=== PATIENT | male | born 1930 | race Caucasian/White ===

== ENCOUNTER → 2016-06-09 | Outpatient (CLI) | payer OTHER ==
[~2016-06-09] MED LIST: AMLO5TAB2 PO; NOR10T PO; TERA2CAP45 PO; TRAM50TA2 PO
== END | disposition home or self-care (01) ==
LOC: LAB 12:11
PROVIDERS: ATTEND Urology
DX: N40.1 Benign prostatic hyperplasia with lower urinary tract symptoms (principal); R35.1 Nocturia
CPT/HCPCS: 84153; 84154

== ENCOUNTER 2016-09-11 07:33 | Day surgery (SDC) | payer OTHER ==
[2016-09-07 15:53] LABS: Basophils # (auto) 0.1 uL; Basophils % (auto) 0.5 % (0.0-2.0); Eosinophils # (auto) 0.2 uL; Eosinophils % (auto) 2.4 % (0.0-7.0); Hematocrit 44.6 % (41.0-53.0); Hemoglobin 14.9 g/dL (13.5-17.5); Lymphocytes % (auto) 30.4 % (10.0-50.0); Mean Corpuscular Hemoglobin 27.5 pg (28.0-32.0); Mean Corpuscular Hgb Conc. 33.4 g/dL (32.0-36.0); Mean Corpuscular Volume 82.3 fL (80.0-100.0); Mean Platelet Volume 8.5 fL (7.4-10.4); Monocytes # (auto) 0.8 uL; Monocytes % (auto) 7.6 % (0.0-12.0); Neutrophils # (auto) 5.9 uL; Neutrophils % (auto) 59.1 % (37.0-80.0); Platelet Count (auto) 357 10^3/uL (140-450); Red Cell Distribution Width 14.2 % (11.6-16.0); White Blood Cell 9.9 10^3/uL (4.4-10.8)
[2016-09-07 16:09] LABS: Partial Thromboplastin Time 27.3 sec (22.64-33.71); Prothrombin Time 10.9 sec (9.37-12.3)
[2016-09-07 16:18] LABS: Urine Bilirubin Negative (Negative); Urine Blood Negative /uL (Negative); Urine Color Yellow (Yellow); Urine Glucose Normal (Normal); Urine Ketone Negative (Negative); Urine Nitrite Negative (Negative); Urine RBC 1 /hpf (0 - 3); Urine Urobilinogen Normal (Negative); Urine pH 5.5 (5.0-8.0)
[2016-09-07 16:24] LABS: Albumin 3.8 g/dL (3.4-5.0); BUN/Creatinine Ratio 17.6; Calcium 9.4 mg/dL (8.5-10.1); Potassium 5.2 mmol/L (3.5-5.1)
[2016-09-07 16:25] LABS: Bilirubin, Total 0.6 mg/dL (0.2-1.0); Total Protein 7.3 g/dL (6.4-8.2)
[~2016-09-11] VITALS: Ht 182.9 cm; Wt 82.6 kg
[~2016-09-11 07:33] MED LIST changes: -AMLO5TAB2 PO; -TERA2CAP45 PO; -TRAM50TA2 PO
[2016-09-11] MEDS ORDERED: ceFAZolin 1GM/50ML D5W 50 ML IV ONE (07:40)
[2016-09-11] MEDS ORDERED: SODIUM CHLORIDE LOCK 10 ML ONE (07:50)
[2016-09-11] MEDS ORDERED: PROPOFOL 10 MG/ML 20 ML IV ONE (07:50)
[2016-09-11] MEDS ORDERED: ONDANSETRON HCL 4 MG/2 ML VIAL ONE (07:50)
[2016-09-11] MEDS ORDERED: fentaNYL CITRATE 100 MCG/2 ML VL ONE (07:50)
[2016-09-11] MEDS ORDERED: MIDAZOLAM HCL 1MG/1ML-2 ML VIAL ONE (07:50)
[2016-09-11] MEDS ORDERED: HYDROmorphone HCL 2 MG/ML VL IV PRN (08:15)
[2016-09-11] MEDS ORDERED: METOCLOPRAMIDE HCL 5MG/ml INJ 2ml VIAL IV ONE (08:15)
[2016-09-11] MEDS ORDERED: LIDOCAINE 1% HCL (LOCAL ANESTH.) INJ 20ML MDV ONE (08:47)
[2016-09-11 10:02] VITALS: BP 130/77
== END 2016-09-11 10:02 | disposition home or self-care (01) ==
LOC: SUR 07:33
PROVIDERS: ATTEND Orthopaedic Surgery
DX: G56.02 Carpal tunnel syndrome, left upper limb (principal); M72.8 Other fibroblastic disorders; Z90.49 Acquired absence of other specified parts of digestive tract; N40.0 Benign prostatic hyperplasia without lower urinary tract symptoms; J44.9 Chronic obstructive pulmonary disease, unspecified; I12.9 Hypertensive chronic kidney disease with stage 1 through stage 4 chronic kidney disease, or unspecified chronic kidney disease; N18.4 Chronic kidney disease, stage 4 (severe)
CPT/HCPCS: 25020; 36415; 64721; 80053; 81001; 85025; 85610; 85730; J0690; J2001; J2250; J2405; J2704; J3010

== ENCOUNTER → 2016-10-27 | Outpatient (CLI) | payer OTHER ==
[2016-10-27 10:26] LABS: BUN/Creatinine Ratio 14.8; Calcium 9.7 mg/dL (8.5-10.1); Potassium 4.2 mmol/L (3.5-5.1)
== END | disposition home or self-care (01) ==
LOC: LAB 09:49
PROVIDERS: ATTEND Internal Medicine
DX: I10 Essential (primary) hypertension (principal); E71.2 Disorder of branched-chain amino-acid metabolism, unspecified
CPT/HCPCS: 36415; 80048; 80061

== ENCOUNTER 2017-05-12 21:16 | Emergency (ER) | payer OTHER ==
[~2017-05-12] VITALS: Ht 185.4 cm; Wt 81.6 kg
[2017-05-12 21:24] VITALS: BP 157/100
[2017-05-12 21:58] LABS: Basophils # (auto) 0 uL; Basophils % (auto) 0.2 % (0.0-2.0); Eosinophils # (auto) 0.2 uL; Eosinophils % (auto) 2.3 % (0.0-7.0); Hematocrit 44.6 % (41.0-53.0); Hemoglobin 15.1 g/dL (13.5-17.5); Lymphocytes # (auto) 3.4 uL; Mean Corpuscular Hemoglobin 28.2 pg (28.0-32.0); Mean Corpuscular Hgb Conc. 33.9 g/dL (32.0-36.0); Mean Corpuscular Volume 83.2 fL (80.0-100.0); Monocytes # (auto) 0.8 uL; Monocytes % (auto) 7.6 % (0.0-12.0); Neutrophils # (auto) 5.8 uL; Neutrophils % (auto) 56.9 % (37.0-80.0); Nucleated Red Blood Cells % 0.1 %; Platelet Count (auto) 324 10^3/uL (140-450); Red Blood Cells 5.35 10^6/uL (4.5-5.90); Red Cell Distribution Width 14.7 % (11.8-14.3); White Blood Cell 10.2 10^3/uL (4.4-10.8)
[2017-05-12 22:14] LABS: Alanine Aminotransferase 18 U/L (16-61); Albumin 3.9 g/dL (3.4-5.0); Anion Gap 10 (5-15); Aspartate Aminotransferase 13 U/L (15-37); BUN/Creatinine Ratio 15.6; Blood Urea Nitrogen 29 mg/dL (7-18); Calcium 9.9 mg/dL (8.5-10.1); Carbon Dioxide 25 mmol/L (21-32); Chloride 102 mmol/L (98-107); GFR African American 45 mL/min; GFR Non-African American 37 mL/min; Glucose 124 mg/dL (74-106); Magnesium 2.3 mg/dL (1.6-2.6); Potassium 4.6 mmol/L (3.5-5.1); Sodium 137 mmol/L (136-145)
[2017-05-12 22:19] LABS: Alkaline Phosphatase 63 U/L (45-117); Bilirubin, Total 0.4 mg/dL (0.2-1.0); Total Protein 7.3 g/dL (6.4-8.2)
== END 2017-05-13 02:58 | disposition left against medical advice (07) ==
LOC: ER 21:18
DX: R07.89 Other chest pain (principal); Z53.21 Procedure and treatment not carried out due to patient leaving prior to being seen by health care provider
CPT/HCPCS: 36415; 71045; 80053; 83735; 84443; 84484; 85025; 93005

== ENCOUNTER → 2017-06-07 | Outpatient (CLI) | payer OTHER ==
[~2017-06-07] VITALS: Ht 185.4 cm; Wt 82.6 kg
[~2017-06-07] MED LIST changes: +ADENOSINE 69 MG in GIVE UN-DILUTED 0 ML IV ONE
[2017-06-07 10:56] VITALS: BP 168/107
== END | disposition home or self-care (01) ==
LOC: XY 09:39
PROVIDERS: ATTEND Internal Medicine Cardiovascular Disease
DX: I20.8 Other forms of angina pectoris (principal); I12.9 Hypertensive chronic kidney disease with stage 1 through stage 4 chronic kidney disease, or unspecified chronic kidney disease; N18.4 Chronic kidney disease, stage 4 (severe); J44.9 Chronic obstructive pulmonary disease, unspecified
CPT/HCPCS: 78452; 93017; A9500; J0153

== ENCOUNTER → 2017-11-04 | Outpatient (CLI) | payer OTHER ==
[~2017-11-04] MED LIST changes: -ADENOSINE 69 MG in GIVE UN-DILUTED 0 ML IV ONE
[2017-11-04 08:08] LABS: Urine Bacteria None Seen /hpf (None Seen)
[2017-11-04 08:15] LABS: Basophils # (auto) 0.1 uL; Basophils % (auto) 0.8 % (0.0-2.0); Eosinophils # (auto) 0.2 uL; Eosinophils % (auto) 1.9 % (0.0-7.0); Hemoglobin 14.3 g/dL (13.5-17.5); Lymphocytes # (auto) 3.5 uL; Lymphocytes % (auto) 42.1 % (10.0-50.0); Mean Corpuscular Hemoglobin 27.9 pg (28.0-32.0); Mean Corpuscular Hgb Conc. 33.3 g/dL (32.0-36.0); Mean Corpuscular Volume 83.8 fL (80.0-100.0); Monocytes # (auto) 0.7 uL; Monocytes % (auto) 8.8 % (0.0-12.0); Neutrophils # (auto) 3.9 uL; Neutrophils % (auto) 46.4 % (37.0-80.0); Platelet Count (auto) 321 10^3/uL (140-450); Red Blood Cells 5.13 10^6/uL (4.5-5.90); Red Cell Distribution Width 13.7 % (11.8-14.3); White Blood Cell 8.3 10^3/uL (4.4-10.8)
[2017-11-04 08:45] LABS: Albumin 3.7 g/dL (3.4-5.0); Bilirubin, Total 0.5 mg/dL (0.2-1.0); Calcium 9.4 mg/dL (8.5-10.1); Potassium 3.8 mmol/L (3.5-5.1)
[2017-11-04 09:31] LABS: Urine Specific Gravity 1.012 (1.001-1.035)
[2017-11-04 09:32] LABS: Urine Blood Negative /uL (Negative)
[2017-11-04 09:33] LABS: Urine WBC 3 /hpf (0 - 3)
== END | disposition home or self-care (01) ==
LOC: LAB 07:19
DX: Z00.01 Encounter for general adult medical examination with abnormal findings (principal); E78.2 Mixed hyperlipidemia; I10 Essential (primary) hypertension
CPT/HCPCS: 36415; 80053; 80061; 81001; 85025

== ENCOUNTER → 2018-05-10 | Outpatient (CLI) | payer OTHER ==
[2018-05-10 18:08] LABS: Free T4 (Free Thyroxine) 1.22 ng/dL (0.89-1.76); T3 Total 0.89 ng/mL (0.60-1.81)
== END | disposition home or self-care (01) ==
LOC: LAB 15:57
PROVIDERS: ATTEND Physician Assistant
DX: R53.83 Other fatigue (principal)
CPT/HCPCS: 36415; 84439; 84443; 84480

== ENCOUNTER → 2019-01-11 | Outpatient (CLI) | payer OTHER ==
[~2019-01-11] MED LIST changes: +ASPI81CH43 PO; +B-CO-15 PO; +HYDR12.55 PO; +LACTCAP35 PO; +MET50T PO; +ROSU5TAB5 PO; +TICA90TA PO
[2019-01-11 11:04] LABS: Basophils # (auto) 0.1 uL; Eosinophils # (auto) 0.2 uL; Eosinophils % (auto) 2.8 % (0.0-7.0); Hematocrit 42.3 % (41.0-53.0); Hemoglobin 14.3 g/dL (13.5-17.5); Lymphocytes # (auto) 2.6 uL; Lymphocytes % (auto) 31.4 % (10.0-50.0); Mean Corpuscular Hemoglobin 28.1 pg (28.0-32.0); Mean Corpuscular Hgb Conc. 33.7 g/dL (32.0-36.0); Mean Corpuscular Volume 83.3 fL (80.0-100.0); Monocytes # (auto) 0.8 uL; Monocytes % (auto) 9.6 % (0.0-12.0); Neutrophils # (auto) 4.5 uL; Neutrophils % (auto) 55.2 % (37.0-80.0); Nucleated Red Blood Cells % 0.1 %; Platelet Count (auto) 275 10^3/uL (140-450); Red Blood Cells 5.08 10^6/uL (4.5-5.90); Red Cell Distribution Width 14.6 % (11.8-14.3); White Blood Cell 8.2 10^3/uL (4.4-10.8)
[2019-01-11 11:29] LABS: Albumin 3.7 g/dL (3.4-5.0); BUN/Creatinine Ratio 17.1; Calcium 9.5 mg/dL (8.5-10.1); Potassium 4.1 mmol/L (3.5-5.1)
[2019-01-11 11:32] LABS: Bilirubin, Total 0.6 mg/dL (0.2-1.0)
== END | disposition home or self-care (01) ==
LOC: LAB 10:45
PROVIDERS: ATTEND Internal Medicine
DX: I25.10 Atherosclerotic heart disease of native coronary artery without angina pectoris (principal); I12.9 Hypertensive chronic kidney disease with stage 1 through stage 4 chronic kidney disease, or unspecified chronic kidney disease; E11.22 Type 2 diabetes mellitus with diabetic chronic kidney disease; N18.3 Chronic kidney disease, stage 3 (moderate); I24.9 Acute ischemic heart disease, unspecified
CPT/HCPCS: 36415; 80053; 85025

== ENCOUNTER → 2019-02-15 | Outpatient (CLI) | payer OTHER | END | disposition home or self-care (01) | LOC: XYW 09:38 | PROVIDERS: ATTEND Internal Medicine | DX: I08.2 Rheumatic disorders of both aortic and tricuspid valves (principal); I25.10 Atherosclerotic heart disease of native coronary artery without angina pectoris | CPT/HCPCS: 93306 ==

== ENCOUNTER → 2019-03-07 | Outpatient (CLI) | payer OTHER ==
[2019-03-07 12:23] LABS: Basophils # (auto) 0.1 uL; Basophils % (auto) 1.2 % (0.0-2.0); Eosinophils # (auto) 0.2 uL; Eosinophils % (auto) 2.9 % (0.0-7.0); Hematocrit 42.3 % (41.0-53.0); Hemoglobin 14.2 g/dL (13.5-17.5); Lymphocytes # (auto) 1.7 uL; Lymphocytes % (auto) 24.2 % (10.0-50.0); Mean Corpuscular Hemoglobin 28.1 pg (28.0-32.0); Mean Corpuscular Hgb Conc. 33.6 g/dL (32.0-36.0); Mean Corpuscular Volume 83.7 fL (80.0-100.0); Monocytes # (auto) 0.7 uL; Monocytes % (auto) 9.9 % (0.0-12.0); Neutrophils # (auto) 4.5 uL; Neutrophils % (auto) 61.8 % (37.0-80.0); Platelet Count (auto) 258 10^3/uL (140-450); Red Blood Cells 5.06 10^6/uL (4.5-5.90); Red Cell Distribution Width 14.6 % (11.8-14.3); White Blood Cell 7.2 10^3/uL (4.4-10.8)
[2019-03-07 12:26] LABS: Albumin 3.7 g/dL (3.4-5.0); Calcium 9.1 mg/dL (8.5-10.1); Potassium 4.8 mmol/L (3.5-5.1)
[2019-03-07 12:31] LABS: BUN/Creatinine Ratio 17.3; Bilirubin, Total 0.6 mg/dL (0.2-1.0); Total Protein 7.1 g/dL (6.4-8.2)
== END | disposition home or self-care (01) ==
LOC: LAB 11:56
PROVIDERS: ATTEND Internal Medicine
DX: I25.10 Atherosclerotic heart disease of native coronary artery without angina pectoris (principal); I10 Essential (primary) hypertension; R06.02 Shortness of breath; G89.4 Chronic pain syndrome
CPT/HCPCS: 36415; 80053; 84443; 85025

== ENCOUNTER → 2019-05-18 | Outpatient (CLI) | payer OTHER ==
[~2019-05-18] VITALS: Ht 185.4 cm; Wt 70.3 kg
[~2019-05-18] MED LIST changes: +ADENOSINE 59 MG in GIVE UN-DILUTED 0 ML IV STA
== END | disposition home or self-care (01) ==
LOC: XY 07:53
PROVIDERS: ATTEND Internal Medicine
DX: I10 Essential (primary) hypertension (principal); E78.00 Pure hypercholesterolemia, unspecified; Z95.5 Presence of coronary angioplasty implant and graft
CPT/HCPCS: 78452; 93017; A9500; J0153

== ENCOUNTER 2019-06-14 11:55 | Inpatient (IN) | payer OTHER ==
[~2019-06-14] VITALS: Ht 182.9 cm; Wt 77.3 kg
[~2019-06-14 11:55] MED LIST changes: -ADENOSINE 59 MG in GIVE UN-DILUTED 0 ML IV STA
[2019-06-14 12:57] LABS: Basophils # (auto) 0.1 10 ^3/uL (0-0.2); Basophils % (auto) 0.7 % (0.0-2.0); Eosinophils # (auto) 0.2 10 ^3/uL (0-0.8); Eosinophils % (auto) 2.8 % (0.0-7.0); Hematocrit 41.8 % (41.0-53.0); Hemoglobin 13.9 g/dL (13.5-17.5); Lymphocytes # (auto) 1.9 10 ^3/uL (0.4-5.4); Lymphocytes % (auto) 23.2 % (10.0-50.0); Mean Corpuscular Hemoglobin 27.7 pg (28.0-32.0); Mean Corpuscular Hgb Conc. 33.3 g/dL (32.0-36.0); Mean Corpuscular Volume 83.1 fL (80.0-100.0); Monocytes # (auto) 0.8 10 ^3/uL (0-1.3); Monocytes % (auto) 9.4 % (0.0-12.0); Neutrophils # (auto) 5.2 10 ^3/uL (1.6-8.6); Neutrophils % (auto) 63.9 % (37.0-80.0); Platelet Count (auto) 250 10^3/uL (140-450); Red Blood Cells 5.03 10^6/uL (4.5-5.90); Red Cell Distribution Width 14.2 % (11.8-14.3); White Blood Cell 8.2 10^3/uL (4.4-10.8)
[2019-06-14 13:15] LABS: Albumin 3.8 g/dL (3.4-5.0); BUN/Creatinine Ratio 21.4; Calcium 9.4 mg/dL (8.5-10.1); Potassium 4.2 mmol/L (3.5-5.1)
[2019-06-14 13:17] LABS: Bilirubin, Total 0.5 mg/dL (0.2-1.0); Total Protein 6.9 g/dL (6.4-8.2)
[2019-06-14] MEDS ORDERED: MORPHINE SULF INJ 2 MG/ML SYRINGE 1ML IV ONE (14:00)
[2019-06-14] MEDS ORDERED: ONDANSETRON HCL 4 MG/2 ML VIAL IV ONE (14:00)
[2019-06-14 14:30] LABS: INR 1.01 (0.9-1.15); Partial Thromboplastin Time 27.5 sec (23.64-32.05)
[2019-06-14] MEDS ORDERED: MORPHINE SULF INJ 2 MG/ML SYRINGE 1ML IV PRN ×2 (18:45)
[2019-06-14] MEDS ORDERED: NITROGLYCERIN 0.4 MG SL TAB SL PRN (18:45)
[2019-06-14] MEDS ORDERED: CLOPIDOGREL BISULFATE 75 MG TAB PO ONE (18:45)
[2019-06-14] MEDS ORDERED: ONDANSETRON HCL 4 MG/2 ML VIAL IV PRN (18:45)
[2019-06-14] MEDS ORDERED: ACETAMINOPHEN 500 MG TAB PO PRN (18:45)
[2019-06-14] MEDS ORDERED: hydrALAZINE HCL 20 MG/ML VL IV PRN (18:45)
[2019-06-14] MEDS ORDERED: NITROGLYCERIN 0.4MG/HR TOPICAL PATCH TD ONE (18:45)
[2019-06-14 19:20] LABS: Urine Bacteria NONE SEEN /hpf (None Seen); Urine Blood Negative /uL (Negative); Urine Specific Gravity 1.009 (1.001-1.035); Urine WBC 1 /hpf (0 - 3)
[2019-06-14] MEDS: SODIUM CHLORIDE 0.9% 1,000 ML IV SCH (19:37)
[2019-06-14 20:50] VITALS: BP 107/60
[2019-06-14] MEDS: METOPROLOL TARTRATE 25 MG TAB PO SCH (21:29)
[2019-06-14] MEDS: ATORVASTATIN 20 MG TAB PO SCH (21:30)
[2019-06-14 22:00] VITALS: BP 107/60
[2019-06-14] MEDS ORDERED: METOPROLOL TARTRATE 50 MG TAB PO SCH (22:00)
[2019-06-14] MEDS ORDERED: CLOP75TA28 PO (23:25)
[2019-06-15] MEDS: HYDROcodone-ACET 5/325MG TAB PO PRN ×3 (04:34→21:37)
[2019-06-15 05:30] VITALS: BP 98/65
[2019-06-15 07:17] LABS: Potassium 4.6 mmol/L (3.5-5.1)
[2019-06-15 07:21] LABS: BUN/Creatinine Ratio 21.1; Calcium 9.1 mg/dL (8.5-10.1)
[2019-06-15] MEDS: FAMOTIDINE 20 MG TAB PO SCH (09:34)
[2019-06-15] MEDS: ASPirin 81 mg TAB PO SCH (09:36)
[2019-06-15] MEDS: METOPROLOL TARTRATE 25 MG TAB PO SCH ×2 (10:00→21:36)
[2019-06-15] MEDS: NITROGLYCERIN 0.4MG/HR TOPICAL PATCH TD SCH ×2 (10:00→14:43)
[2019-06-15] MEDS: CLOPIDOGREL BISULFATE 75 MG TAB PO SCH (10:00)
[2019-06-15] MEDS: SODIUM CHLORIDE 0.9% 1,000 ML IV SCH (11:25)
[2019-06-15 13:00] VITALS: BP 106/70
[2019-06-15] MEDS ORDERED: diphenhdrAMINE HCL 50 MG/1 ML VL IV ONE (13:15)
[2019-06-15 17:00] VITALS: BP 92/63
[2019-06-15] MEDS: DOCUSATE SOD 100 MG CAP PO SCH (21:36)
[2019-06-15] MEDS: ATORVASTATIN 20 MG TAB PO SCH (21:36)
[2019-06-15 21:38] VITALS: BP 95/56
[2019-06-16] VITALS (7 sets, daily range): BP systolic 93–152; BP diastolic 57–73
[2019-06-16] MEDS ORDERED: SODIUM CHLORIDE 0.9% 1,000 ML IV SCH (00:01)
[2019-06-16] MEDS: SODIUM CHLORIDE 0.9% 1,000 ML IV SCH ×3 (04:15→22:28)
[2019-06-16] MEDS: DOCUSATE SOD 100 MG CAP PO SCH ×2 (10:00→22:20)
[2019-06-16] MEDS: NITROGLYCERIN 0.4MG/HR TOPICAL PATCH TD SCH (10:00)
[2019-06-16] MEDS: METOPROLOL TARTRATE 25 MG TAB PO SCH ×2 (10:00→22:00)
[2019-06-16] MEDS: CLOPIDOGREL BISULFATE 75 MG TAB PO SCH (10:05)
[2019-06-16] MEDS: FAMOTIDINE 20 MG TAB PO SCH (10:05)
[2019-06-16] MEDS: ASPirin 81 mg TAB PO SCH (10:06)
[2019-06-16] MEDS ORDERED: LIDOCAINE 2%HCL (LOCAL ANESTH.) INJ 20ML MDV ONE (13:12)
[2019-06-16] MEDS ORDERED: IOHEXOL 350 MG/ML 100ML IJ ONE (13:12)
[2019-06-16] MEDS ORDERED: VERAPAMIL 2.5MG/ML INJ 2ML VIAL IV ONE (13:13)
[2019-06-16] MEDS ORDERED: HEPARIN SODIUM (PORCINE) 5000 UNITS/ML 1ML VIAL ONE (13:14)
[2019-06-16] MEDS ORDERED: fentaNYL CITRATE 100 MCG/2 ML VL ONE (13:19)
[2019-06-16] MEDS ORDERED: MIDAZOLAM HCL 1MG/1ML-2 ML VIAL ONE (13:19)
[2019-06-16] MEDS ORDERED: SODIUM CHL 0.9% 0 ML ONE (13:19)
[2019-06-16] MEDS ORDERED: ANGIOMAX 250 MG VIAL IV ONE (13:19)
[2019-06-16] MEDS ORDERED: IODIXANOL 320MG/ML 100ML BTL IV ONE (13:28)
[2019-06-16] MEDS: HYDROcodone-ACET 5/325MG TAB PO PRN (20:54)
[2019-06-16] MEDS: ATORVASTATIN 20 MG TAB PO SCH (22:20)
[2019-06-17] MEDS: HYDROcodone-ACET 5/325MG TAB PO PRN ×2 (04:36→14:15)
[2019-06-17 05:40] VITALS: BP 140/76
[2019-06-17 07:16] LABS: Basophils # (auto) 0 10 ^3/uL (0-0.2); Basophils % (auto) 0.5 % (0.0-2.0); Eosinophils # (auto) 0.2 10 ^3/uL (0-0.8); Eosinophils % (auto) 2.3 % (0.0-7.0); Hemoglobin 13.7 g/dL (13.5-17.5); Lymphocytes # (auto) 2.2 10 ^3/uL (0.4-5.4); Lymphocytes % (auto) 22.6 % (10.0-50.0); Mean Corpuscular Hemoglobin 27.9 pg (28.0-32.0); Mean Corpuscular Hgb Conc. 33.4 g/dL (32.0-36.0); Mean Corpuscular Volume 83.4 fL (80.0-100.0); Monocytes # (auto) 0.8 10 ^3/uL (0-1.3); Neutrophils # (auto) 6.4 10 ^3/uL (1.6-8.6); Neutrophils % (auto) 66.6 % (37.0-80.0); Platelet Count (auto) 238 10^3/uL (140-450); Red Blood Cells 4.92 10^6/uL (4.5-5.90); Red Cell Distribution Width 14.2 % (11.8-14.3); White Blood Cell 9.5 10^3/uL (4.4-10.8)
[2019-06-17 07:33] LABS: Calcium 9.3 mg/dL (8.5-10.1); Potassium 4.7 mmol/L (3.5-5.1)
[2019-06-17 07:35] LABS: BUN/Creatinine Ratio 24.7
[2019-06-17 08:00] VITALS: BP 126/77
[2019-06-17 09:00] VITALS: BP 126/17
[2019-06-17] MEDS: DOCUSATE SOD 100 MG CAP PO SCH (09:21)
[2019-06-17] MEDS: METOPROLOL TARTRATE 25 MG TAB PO SCH (09:22)
[2019-06-17] MEDS: FAMOTIDINE 20 MG TAB PO SCH (09:22)
[2019-06-17] MEDS: ASPirin 81 mg TAB PO SCH (09:22)
[2019-06-17] MEDS: CLOPIDOGREL BISULFATE 75 MG TAB PO SCH (09:22)
[2019-06-17] MEDS: NITROGLYCERIN 0.4MG/HR TOPICAL PATCH TD SCH (10:00)
[2019-06-17 12:58] VITALS: BP 138/83
[2019-06-17] MEDS: SODIUM CHLORIDE 0.9% 1,000 ML IV SCH (14:16)
[2019-06-17] MEDS ORDERED: ATOR20TA50 PO (15:06)
[2019-06-17] MEDS ORDERED: LACTULOSE 20Gm/30ML SOLN PO ONE (15:30)
[2019-06-17 15:36] VITALS: BP 138/83
== END 2019-06-17 17:10 | disposition home or self-care (01) | DRG 287 ==
LOC: ER 11:55 → TELE 11:56 → TELE-EAST 20:49
PROVIDERS: ADMIT Nurse Practitioner Acute Care; ATTEND Internal Medicine Nephrology
PROC: 4A023N7 Measurement of Cardiac Sampling and Pressure, Left Heart, Percutaneous Approach (ICD-10-PCS; principal; 2019-06-16)
PROC: B2151ZZ Fluoroscopy of Left Heart using Low Osmolar Contrast (ICD-10-PCS; 2019-06-16)
PROC: B2161ZZ Fluoroscopy of Right and Left Heart using Low Osmolar Contrast (ICD-10-PCS; 2019-06-16)
DX: I25.110 Atherosclerotic heart disease of native coronary artery with unstable angina pectoris (principal); E87.1 Hypo-osmolality and hyponatremia; N18.3 Chronic kidney disease, stage 3 (moderate); I25.10 Atherosclerotic heart disease of native coronary artery without angina pectoris; E78.5 Hyperlipidemia, unspecified; I12.9 Hypertensive chronic kidney disease with stage 1 through stage 4 chronic kidney disease, or unspecified chronic kidney disease; G89.4 Chronic pain syndrome; I25.2 Old myocardial infarction; Z95.1 Presence of aortocoronary bypass graft; Z90.49 Acquired absence of other specified parts of digestive tract; Z79.82 Long term (current) use of aspirin; Z95.5 Presence of coronary angioplasty implant and graft; Z79.899 Other long term (current) drug therapy
CPT/HCPCS: 36415; 71045; 80048; 80053; 81001; 83735; 83880; 84443; 84484; 85025; 85610; 85730; 86141; 86850; 86900; 86901; 87081; 93005; 93458; 96361; 96374; 96375; 99152; G0378; J2250; J2405; Q9967

== ENCOUNTER 2019-10-01 07:10 | Inpatient (IN) | payer OTHER ==
[~2019-10-01] VITALS: Ht 172.7 cm; Wt 78.2 kg
[~2019-10-01 07:10] MED LIST changes: +ATOR20TA50 PO; +CLOP75TA28 PO; -ROSU5TAB5 PO; -TICA90TA PO
[2019-10-01] MEDS ORDERED: PROMETHAZINE HCL 25 MG/ML 1ML ONE (08:32)
[2019-10-01] MEDS ORDERED: SODIUM CHLORIDE 0.9% 1,000 ML IV ONE ×2 (08:54→09:00)
[2019-10-01] MEDS ORDERED: SODIUM CHLORIDE 0.9% 500 ML IVB ONE (08:54)
[2019-10-01 08:55] LABS: Basophils # (auto) 0 10 ^3/uL (0-0.2); Basophils % (auto) 0.3 % (0.0-2.0); Eosinophils # (auto) 0 10 ^3/uL (0-0.8); Eosinophils % (auto) 0.2 % (0.0-7.0); Hematocrit 40.6 % (41.0-53.0); Hemoglobin 13.5 g/dL (13.5-17.5); Lymphocytes # (auto) 1.3 10 ^3/uL (0.4-5.4); Mean Corpuscular Hemoglobin 27.8 pg (28.0-32.0); Mean Corpuscular Hgb Conc. 33.3 g/dL (32.0-36.0); Mean Corpuscular Volume 83.6 fL (80.0-100.0); Monocytes # (auto) 0.5 10 ^3/uL (0-1.3); Monocytes % (auto) 5.2 % (0.0-12.0); Neutrophils # (auto) 8.4 10 ^3/uL (1.6-8.6); Neutrophils % (auto) 81.3 % (37.0-80.0); Platelet Count (auto) 251 10^3/uL (140-450); Red Blood Cells 4.86 10^6/uL (4.5-5.90); Red Cell Distribution Width 14.3 % (11.8-14.3); White Blood Cell 10.3 10^3/uL (4.4-10.8)
[2019-10-01] MEDS ORDERED: PROMETHAZINE HCL 25 MG/ML 1ML IV ONE ×2 (09:00→10:15)
[2019-10-01 09:17] LABS: Anion Gap 10 (5-15); Blood Urea Nitrogen 37 mg/dL (7-18); Calcium 9.8 mg/dL (8.5-10.1); Carbon Dioxide 23 mmol/L (21-32); Chloride 105 mmol/L (98-107); Glucose 138 mg/dL (74-106); Potassium 3.6 mmol/L (3.5-5.1); Sodium 138 mmol/L (136-145)
[2019-10-01 09:21] LABS: Alanine Aminotransferase 24 U/L (16-61); Alkaline Phosphatase 67 U/L (45-117); Aspartate Aminotransferase 19 U/L (15-37); BUN/Creatinine Ratio 23.1; Bilirubin, Total 0.6 mg/dL (0.2-1.0); GFR African American 53 mL/min; GFR Non-African American 44 mL/min; Total Protein 6.9 g/dL (6.4-8.2)
[2019-10-01 09:35] LABS: Magnesium 2.5 mg/dL (1.6-2.6)
[2019-10-01 10:07] LABS: Urine Bacteria FEW /hpf (None Seen); Urine Blood 2+ /uL (Negative); Urine Specific Gravity 1.013 (1.001-1.035); Urine WBC 5 /hpf (0 - 3)
[2019-10-01] MEDS ORDERED: MORPHINE SULFATE 4 MG/ML SYR/VIAL IV ONE (10:15)
[2019-10-01] MEDS ORDERED: LACTULOSE 20Gm/30ML SOLN PO ONE (12:15)
[2019-10-01] MEDS ORDERED: metroNIDAZOLE 500MG/100ML 100 ML IV ONE (12:15)
[2019-10-01] MEDS ORDERED: cefTRIAXone 1GM/50ML D5W 50 ML IV ONE (12:15)
[2019-10-01] MEDS ORDERED: NITROGLYCERIN 0.4 MG SL TAB SL PRN (13:00)
[2019-10-01] MEDS ORDERED: MORPHINE SULF INJ 2 MG/ML SYRINGE 1ML IV PRN (13:00)
[2019-10-01] MEDS ORDERED: DEXTROSE (50%) 50ML SYRG IV PRN (13:15)
[2019-10-01] MEDS ORDERED: LORazepam 2MG/ML-1ML VIAL IV ONE (13:15)
[2019-10-01] MEDS ORDERED: PANTOPRAZOLE 40 MG/10 ML VIAL INJ IV ONE (13:15)
[2019-10-01] MEDS ORDERED: traMADol HCL 50 MG TAB PO PRN (13:15)
[2019-10-01] MEDS: SODIUM CHLORIDE 0.9% 1,000 ML IV SCH ×2 (13:15→22:35)
[2019-10-01] MEDS ORDERED: ACETAMINOPHEN 500 MG TAB PO PRN (13:15)
[2019-10-01] MEDS: metroNIDAZOLE 500MG/100ML 100 ML IV SCH ×2 (14:00→22:34)
[2019-10-01] MEDS ORDERED: ENOXAPARIN SOD 40 MG/0.4 ML SYRINGE SC ONE (16:30)
[2019-10-01] MEDS: ACCU-CHEK COMFORT CURVE STRIP VI SCH ×2 (16:49→22:00)
[2019-10-01] MEDS: InsuLIN REG 1unit/0.01ml Soln (100units/ml) SC SCH ×2 (16:49→22:00)
--- NOTE | 2019-10-01 17:00 | NUR ---
Telemetry admit from ER SALTY GARCIA admitted to Telemetry unit after SBAR received. Patient oriented to Rashel Kiser, primary RN, unit, room, bed, and unit policies regarding patient care and visiting hours. Patient now on continuous telemetry monitoring, tele box # 24 and telemetry reading on arrival to unit is Sinus rhythm. Patient weighed by bedscale and bed alarm in place. Patient currently disoriented. Not responding verbally to questioning.
[2019-10-01] MEDS ORDERED: LORazepam 2MG/ML-1ML VIAL IV PRN (17:15)
--- NOTE | 2019-10-01 18:48 | NUR ---
ADMISSION INTERVENTIONS UNABLE TO COMPLETE ADMISSION INTERVENTIONS AT THIS TIME. PATIENT NOT ABLE TO ANSWER QUESTIONS AT THIS TIME. WILL NOTIFY PRIMARY NURSE.
--- NOTE | 2019-10-01 19:15 | NUR ---
Opening Shift Note Assumed care of patient, awake and alert. No S/S of distress/SOB or pain. Patient noted to be attempting pull out Guy catheter, patient altered at this time. Bilateral mittens applied for patient safety. Bed in lowest locked position, side rails up x2, call light within reach, bed alarm on. Charge nurse Silvina made aware of need for sitter for patient. Instructed on POC and to call for assist PRN, will continue to monitor every fifteen minutes for changes and PRN.
--- NOTE | 2019-10-01 19:45 | NUR ---
car wash attendant Abimael at bedside for patient safety. Will continue to monitor.
[2019-10-01 20:06] LABS: Hematocrit 40.6 % (41.0-53.0); Hemoglobin 13.2 g/dL (13.5-17.5)
[2019-10-01 22:00] VITALS: BP 155/68
--- NOTE | 2019-10-01 22:15 | NUR ---
Patient alert and oriented x 3 during medication administration. Patient knows his name, the current president, and that he's in the hospital, but not why he is here. Patient educated on reason for admittance, verbalized understanding. Episodes of confusion noted while speaking to patient, reoriented patient PRN. Will continue to monitor.
--- NOTE | 2019-10-01 22:30 | NUR ---
Patient reporting 7/10 pain to groin area, refusing pain medications and alternative pain relief options at this time. Will continue to monitor.
--- NOTE | 2019-10-01 23:55 | NUR ---
Patient transferred to room 293 B to combine safety attendants. Patient transferred with all belongings, tolerated transfer well. Bedside report given to Tasha BRADEN, all questions and concerns addressed. auto self service station attendant Jane at bedside for patient safety. No distress noted at time of transfer
--- NOTE | 2019-10-01 23:57 | NUR ---
Assumed care of patient. Received report from Coleen BRADEN. At this time patient has no s/s of distress or SOB. Patient resting in bed and responsive to voice and touch. Sitter at bedside. Will continue to monitor Q1 and PRN.
[2019-10-02 01:10] LABS: Hematocrit 39.1 % (41.0-53.0); Hemoglobin 12.8 g/dL (13.5-17.5)
[2019-10-02] MEDS: MORPHINE SULF INJ 2 MG/ML SYRINGE 1ML IV PRN ×2 (01:15→05:45)
[2019-10-02 04:36] VITALS: BP 102/51
[2019-10-02] MEDS: metroNIDAZOLE 500MG/100ML 100 ML IV SCH ×3 (05:44→21:49)
[2019-10-02] MEDS: InsuLIN REG 1unit/0.01ml Soln (100units/ml) SC SCH ×4 (06:39→21:49)
[2019-10-02] MEDS: ACCU-CHEK COMFORT CURVE STRIP VI SCH ×4 (06:49→21:49)
--- NOTE | 2019-10-02 07:10 | NUR ---
End of Shift Note Endorsed care to dayshift RN. At this time patient has no s/s of distress or SOB. Patient responsive to name and touch.
--- NOTE | 2019-10-02 07:17 | NUR ---
OPENING SHIFT NOTE Assumed care of patient from maintenance technician 2nd shift RN. There is a sitter at bedside. Patient is alert and oriented x3, patient is unaware of the year, patient was oriented to the year. No signs of distress noted. He was updated on the plan of care and verbalized understanding. Patient has a rivera placed draining bloody urine to gravity, no kinks or loops noted in the tubing. Per sitter patient was pulling at the rivera during the night. Rivera care complete, patient tolerated well. Bed is locked, in the lowest position, side rails up x2 and call light is in reach. Patient was encouraged to call for assistance as needed.
[2019-10-02 07:53] LABS: Basophils # (auto) 0 10 ^3/uL (0-0.2); Basophils % (auto) 0.2 % (0.0-2.0); Eosinophils # (auto) 0.1 10 ^3/uL (0-0.8); Eosinophils % (auto) 0.5 % (0.0-7.0); Hematocrit 37.2 % (41.0-53.0); Hemoglobin 12.2 g/dL (13.5-17.5); Lymphocytes # (auto) 2.1 10 ^3/uL (0.4-5.4); Lymphocytes % (auto) 18.7 % (10.0-50.0); Mean Corpuscular Hemoglobin 27.5 pg (28.0-32.0); Mean Corpuscular Hgb Conc. 32.9 g/dL (32.0-36.0); Mean Corpuscular Volume 83.7 fL (80.0-100.0); Monocytes # (auto) 1.1 10 ^3/uL (0-1.3); Neutrophils # (auto) 7.9 10 ^3/uL (1.6-8.6); Neutrophils % (auto) 70.6 % (37.0-80.0); Platelet Count (auto) 244 10^3/uL (140-450); Red Blood Cells 4.45 10^6/uL (4.5-5.90); Red Cell Distribution Width 14.5 % (11.8-14.3); White Blood Cell 11.2 10^3/uL (4.4-10.8)
[2019-10-02 08:08] LABS: Albumin 3.3 g/dL (3.4-5.0); Calcium 9.3 mg/dL (8.5-10.1); Potassium 3.6 mmol/L (3.5-5.1)
[2019-10-02 08:12] LABS: BUN/Creatinine Ratio 18.8; Bilirubin, Total 0.7 mg/dL (0.2-1.0)
[2019-10-02] MEDS: SODIUM CHLORIDE 0.9% 1,000 ML IV SCH ×2 (09:15→19:15)
[2019-10-02] MEDS: PANTOPRAZOLE 40 MG TAB PO SCH (09:20)
[2019-10-02] MEDS: cefTRIAXone 1GM/50ML D5W 50 ML IV SCH (09:20)
--- NOTE | 2019-10-02 09:45 | NUR ---
CALL FROM FAMILY Patient's daughter Theodora called. After verification of password she was updated on patient status and plan of care. All questions answered.
--- NOTE | 2019-10-02 11:17 | NUR ---
TRACEY AT BEDSIDE Updated on patient status, plan of care discussed with patient and he verbalized understanding. Per MD he will call family to discuss plan of care and possible hospice.
--- NOTE | 2019-10-02 13:22 | NUR ---
CALL FROM FAMILY Patient's daughter Theodora called. After verification of password she was updated on patient status and plan of care. Informed her that MD would be calling her to discuss the plan of care, results of any tests and plan of care, She verbalized understanding. All questions answered.
[2019-10-02 14:00] VITALS: BP 134/71
[2019-10-02 17:00] VITALS: BP 145/72
[2019-10-02] MEDS ORDERED: ENOXAPARIN SOD 40 MG/0.4 ML SYRINGE SC SCH (17:00)
--- NOTE | 2019-10-02 19:14 | NUR ---
Opening Shift Note Assumed care of patient, awake, alert and oriented (self, location, situation), on room air with even and unlabored respirations, no S/S of distress/SOB or pain. Sitter at bedside, patient able to turn in bed independently, bed in lowest locked position, side rails up x2, and call light within reach. Instructed on POC and to call for assist PRN, will continue to monitor for changes Q1hr and PRN.
[2019-10-02 22:00] VITALS: BP 135/86
[2019-10-03] MEDS: MORPHINE SULF INJ 2 MG/ML SYRINGE 1ML IV PRN ×2 (02:46→19:30)
[2019-10-03 05:00] VITALS: BP 116/63
[2019-10-03] MEDS: SODIUM CHLORIDE 0.9% 1,000 ML IV SCH ×2 (05:01→15:15)
[2019-10-03] MEDS: ACCU-CHEK COMFORT CURVE STRIP VI SCH ×4 (06:18→22:00)
[2019-10-03] MEDS: InsuLIN REG 1unit/0.01ml Soln (100units/ml) SC SCH ×4 (06:18→22:00)
[2019-10-03] MEDS: metroNIDAZOLE 500MG/100ML 100 ML IV SCH ×3 (06:18→22:02)
[2019-10-03] MEDS ORDERED: LORazepam 2MG/ML-1ML VIAL IV PRN (08:45)
--- NOTE | 2019-10-03 09:06 | NUR ---
at bedside MD Ribera at bedside, aware of patient's status. New orders received for CPAP and R.T paged to bedside. Cont care
[2019-10-03 09:08] VITALS: BP 134/80
[2019-10-03] MEDS: cefTRIAXone 1GM/50ML D5W 50 ML IV SCH (09:55)
[2019-10-03] MEDS: PANTOPRAZOLE 40 MG TAB PO SCH (09:55)
[2019-10-03] MEDS ORDERED: LACTULOSE 20Gm/30ML SOLN PO PRN (10:00)
[2019-10-03 11:18] LABS: Folate (Folic Acid) 16.6 ng/mL (5.38-24)
[2019-10-03 13:00] VITALS: BP 129/90
--- NOTE | 2019-10-03 13:04 | NUR ---
This rn was called to bedside for "pt found sitting on floor". Upon arrival this rn found patient sitting on floor with back against the bed. Patient states he "slid down from the be" and "couldn't catch himself". Patient denies hitting his head, denies acute pain, no bleeding noted. VSS bp 143/56 hr 79 os 96% on 2 l n/c, temp 98.6. Physical therapists paged to bedside and patient placed back in bed with assistance of Aline lift. Dr Ribera paged to notify. Will cont to monitor Addendum: 10/03/19 at 1944 by Brielle Duong RN DISREGARD NOTEWRONG PATIENT
--- NOTE | 2019-10-03 14:10 | NUR ---
Patient had large bowel movement. Per Sitter at bedside green in color and soft. Patient states "there were some chunks as well" Patient refusing Enema as he states "there's no issue anymore". Abd non tender to palpation, denies abd pain, denies n/v. Cont care
--- NOTE | 2019-10-03 14:57 | NUR ---
Nutrition Assessment Notes Please refer to link for full assessment notes. Est Energy needs: 2642-5117 kcals (23-25 kcal/kgBW) Est Protein needs: 49-61 gms/day (0.6-0.75 gm/kgBW) d/t Stg 3 CKD Will continue to monitor and reassess prn. Addendum: 10/03/19 at [address] Amended: Links added.
[2019-10-03 17:00] VITALS: BP 128/87
--- NOTE | 2019-10-03 19:14 | NUR ---
Opening Shift Note Assumed care of patient, awake, alert and oriented x4, on room air with even and unlabored respirations, no S/S of distress/SOB or pain. Patient able to turn in bed independently, bed in lowest locked position, side rails up x2, and call light within reach. Instructed on POC and to call for assist PRN, will continue to monitor for changes Q1hr and PRN.
[2019-10-03 22:00] VITALS: BP 126/75
[2019-10-03] MEDS: LORazepam 2MG/ML-1ML VIAL IV PRN (22:03)
[2019-10-03] MEDS ORDERED: TEMAZEPAM 15 MG CAP PO ONE (23:00)
[2019-10-04] MEDS: SODIUM CHLORIDE 0.9% 1,000 ML IV SCH ×3 (01:15→21:15)
[2019-10-04 05:00] VITALS: BP 104/61
[2019-10-04] MEDS: metroNIDAZOLE 500MG/100ML 100 ML IV SCH ×3 (06:10→21:30)
[2019-10-04] MEDS: ACCU-CHEK COMFORT CURVE STRIP VI SCH (07:00)
[2019-10-04] MEDS: InsuLIN REG 1unit/0.01ml Soln (100units/ml) SC SCH (07:00)
[2019-10-04 08:00] VITALS: BP 119/64
[2019-10-04 10:00] VITALS: BP 100/67
[2019-10-04] MEDS: PANTOPRAZOLE 40 MG TAB PO SCH (10:05)
[2019-10-04] MEDS: cefTRIAXone 1GM/50ML D5W 50 ML IV SCH (10:05)
--- NOTE | 2019-10-04 11:03 | NUR ---
Patient's family updated on POC, Spoke to Theodora dill's granddaughter. Cont care
--- NOTE | 2019-10-04 13:56 | NUR ---
assessment Patient is a 89 year old male who is alert and oriented. Patients cognitive abilities are intact. Prior to admission patient lived home with family and functioned independently. Patient informed me he is able to care for his own ADLs. Per patient he will return home to his prior living arrangements post discharge and family will transport him home. Patient informed me he has a scooter and fww for home use. Patient informed me he was admitted for abdominal pain. Patient informed me Scarlet Gastelum is his PCP. Patient has no safety issues regarding returning home on discharge. Patient has no post discharge needs identified. I will continue to monitor and follow up as appropriate. I informed patient he has a right to speak to a social media job titles regarding all care. I informed patient he has a right to participate in any and all discharge planning. Patient has a POA and advanced directive. Patient verbalized understanding and agreed to discharge plan. Addendum: 10/04/19 at 1358 by Nanette NGUYEN Amended: Links added.
--- NOTE | 2019-10-04 14:30 | NUR ---
ELECTROENCEPHALOGRAM EEG COMPLETED AT BEDSIDE. PRIMARY RN RAMON DALTON.
--- NOTE | 2019-10-04 16:46 | NUR ---
Urology at bedside Liv Peña with Urology at bedside aware of patient's status including hematuria. Awaiting new orders at this time. Cont care
--- NOTE | 2019-10-04 19:00 | NUR ---
Patient care endorsed to Terrie aranda. Patient sitting up in bed no acute distress or sob noted. Fall precs in place per protocol including bed alarm on at all times.
[2019-10-04] MEDS: ONDANSETRON HCL 4 MG/2 ML VIAL IV PRN (21:29)
--- NOTE | 2019-10-04 21:33 | NUR ---
NAUSEA AND VOMITING PATIENT SITTING UP AT BEDSIDE WITH ACTIVE NAUSEA AND VOMITING. ZOFRAN PRN GIVEN ORDERED. PATIENT STATES HE FINISHED HIS ENTIRE LIQUID DINNER AND TOLERATED WELL AT THE TIME. PATIENT DENIES ABDOMINAL PAIN. PATIENT REPORTS MOD AMOUNT OF EMESIS WITH LIQUID AND FOOD PARTICLES.
[2019-10-04 22:00] VITALS: BP 145/77
[2019-10-04] MEDS: MORPHINE SULF INJ 2 MG/ML SYRINGE 1ML IV PRN (23:41)
[2019-10-05] MEDS: SODIUM CHLORIDE 0.9% 1,000 ML IV SCH ×2 (02:59→18:09)
[2019-10-05 05:00] VITALS: BP 128/72
[2019-10-05] MEDS: metroNIDAZOLE 500MG/100ML 100 ML IV SCH ×3 (05:59→22:38)
[2019-10-05 06:26] LABS: Basophils # (auto) 0 10 ^3/uL (0-0.2); Basophils % (auto) 0.4 % (0.0-2.0); Eosinophils # (auto) 0.1 10 ^3/uL (0-0.8); Eosinophils % (auto) 1.2 % (0.0-7.0); Hematocrit 35.6 % (41.0-53.0); Hemoglobin 12.2 g/dL (13.5-17.5); Lymphocytes # (auto) 1.7 10 ^3/uL (0.4-5.4); Lymphocytes % (auto) 15.3 % (10.0-50.0); Mean Corpuscular Hemoglobin 28.4 pg (28.0-32.0); Mean Corpuscular Hgb Conc. 34.2 g/dL (32.0-36.0); Monocytes # (auto) 0.9 10 ^3/uL (0-1.3); Neutrophils # (auto) 8.1 10 ^3/uL (1.6-8.6); Neutrophils % (auto) 75.1 % (37.0-80.0); Nucleated Red Blood Cells % 0.1 %; Platelet Count (auto) 235 10^3/uL (140-450); Red Blood Cells 4.29 10^6/uL (4.5-5.90); Red Cell Distribution Width 14.4 % (11.8-14.3); White Blood Cell 10.8 10^3/uL (4.4-10.8)
[2019-10-05 06:41] LABS: Potassium 4.2 mmol/L (3.5-5.1)
[2019-10-05 06:47] LABS: BUN/Creatinine Ratio 11.8; Calcium 8.5 mg/dL (8.5-10.1)
--- NOTE | 2019-10-05 08:00 | NUR ---
OPENING SHIFT NOTE ASSUMED CARE OF PATIENT AWAKE AND ALERT. NO S/S OF DISTRESS NOTED OR COMPLAINTS OF PAIN. PATIENT UPDATED ON POC FOR THE DAY AND ALL QUESTIONS ANSWERED. BED IS IN LOWEST, LOCKED POSITION WITH SIDE RAILS UP X2 AND CALL LIGHT WITHIN REACH. WILL CONTINUE TO MONITOR Q1H AND PRN.
[2019-10-05 09:00] VITALS: BP 125/82
--- NOTE | 2019-10-05 09:30 | NUR ---
NAUSEA PATIENT IS HAVING SEVERE NAUSEA AFTER EATING BREAKFAST. ZOFRAN PRN ADMINISTERED. WILL CONTINUE TO MONITOR AND NOTIFY MD.
[2019-10-05] MEDS: cefTRIAXone 1GM/50ML D5W 50 ML IV SCH (09:43)
[2019-10-05] MEDS: PANTOPRAZOLE 40 MG TAB PO SCH ×2 (09:44→22:38)
[2019-10-05] MEDS: ONDANSETRON HCL 4 MG/2 ML VIAL IV PRN ×3 (09:44→22:39)
--- NOTE | 2019-10-05 09:45 | NUR ---
Attempted PT treatment. Pt complains of severe nausea and would like to hold PT treatment. RN notified. Will attempt again later.
--- NOTE | 2019-10-05 10:42 | NUR ---
DR WEBB AT BEDSIDE DR WEBB ROUNDING ON PATIENT. NEW ORDERS RECEIVED. WILL CARRY OUT AND CONTINUE CARE.
[2019-10-05] MEDS ORDERED: METOCLOPRAMIDE 10 mg/10ml ORAL soln PO SCH (12:00)
[2019-10-05 13:00] VITALS: BP 124/54
[2019-10-05 16:57] VITALS: BP 125/82
[2019-10-05] MEDS: SUCRALFATE 1 GM/10 ML ORAL SUSP PO SCH ×2 (18:08→22:38)
[2019-10-05 22:00] VITALS: BP 137/81
--- NOTE | 2019-10-05 22:00 | NUR ---
PATIENT STARTED TO FEEL NAUSEA AND STARTED TO VOMIT RIGHT AFTER I STARTED HIS ANTIBIOTICS. TREATED WITH PRN MEDICATION.
[2019-10-05] MEDS: RANOLAZINE ER 500 MG TAB PO SCH (22:39)
[2019-10-06] MEDS: LORazepam 2MG/ML-1ML VIAL IV PRN (00:22)
--- NOTE | 2019-10-06 02:44 | NUR ---
Opening Shift Note Assumed care of patient, awake, alert and oriented x4, on room air with even and unlabored respirations, no S/S of distress/SOB or pain. Patient able to turn in bed independently, bed in lowest locked position, side rails up x2, and call light within reach. Instructed on POC and to call for assist PRN, will continue to monitor.
[2019-10-06] MEDS: SODIUM CHLORIDE 0.9% 1,000 ML IV SCH ×2 (04:07→13:15)
--- NOTE | 2019-10-06 04:09 | NUR ---
PATIENT AWAKE REQUESTED EYE DROPS. PATIENT TC/O HAVING AN INFECTION ON HIS LEFT EYE.
[2019-10-06 05:00] VITALS: BP 126/75
[2019-10-06] MEDS: metroNIDAZOLE 500MG/100ML 100 ML IV SCH ×2 (05:39→14:14)
[2019-10-06] MEDS: SUCRALFATE 1 GM/10 ML ORAL SUSP PO SCH ×2 (05:39→12:21)
[2019-10-06 09:00] VITALS: BP 125/74
[2019-10-06] MEDS: cefTRIAXone 1GM/50ML D5W 50 ML IV SCH (09:00)
[2019-10-06] MEDS: PANTOPRAZOLE 40 MG TAB PO SCH (09:56)
[2019-10-06] MEDS: RANOLAZINE ER 500 MG TAB PO SCH (09:57)
[2019-10-06] MEDS: ONDANSETRON HCL 4 MG/2 ML VIAL IV PRN (09:57)
[2019-10-06] MEDS ORDERED: PANTOPRAZOLE 40 MG/10 ML VIAL INJ IV SCH (10:00)
[2019-10-06 13:00] VITALS: BP 144/82
[2019-10-06 13:35] VITALS: BP 144/82
--- NOTE | 2019-10-06 15:25 | NUR ---
Discharge instructions given as ordered. Encourage to follow up with PMD as instructed/instructions also given to Theodora (granddaughter). All questions and concerns addressed. Patient verbalized understanding. Medication reconciliation form completed and copy given to patient. IV removed with catheter intact, pressure dressing applied, rivera catheter removed. Telemetry unit returned to ICU. Patient taken to vehicle via wheelchair with all personal belongings, accompanied by staff. No distress noted at time of departure.
== END 2019-10-06 15:15 | disposition home or self-care (01) | DRG 391 ==
LOC: ER 07:10 → TELE 07:11 → TELE-CENTR 17:00 → TELE-WESTW 23:47
PROVIDERS: ADMIT Internal Medicine; ATTEND Internal Medicine
DX: K57.92 Diverticulitis of intestine, part unspecified, without perforation or abscess without bleeding (principal); G93.41 Metabolic encephalopathy; N30.01 Acute cystitis with hematuria; F02.81 Dementia in other diseases classified elsewhere, unspecified severity, with behavioral disturbance; K52.9 Noninfective gastroenteritis and colitis, unspecified; R33.9 Retention of urine, unspecified; N18.3 Chronic kidney disease, stage 3 (moderate); K59.01 Slow transit constipation; N28.89 Other specified disorders of kidney and ureter; N20.0 Calculus of kidney; E11.22 Type 2 diabetes mellitus with diabetic chronic kidney disease; N40.1 Benign prostatic hyperplasia with lower urinary tract symptoms; N28.1 Cyst of kidney, acquired; I25.10 Atherosclerotic heart disease of native coronary artery without angina pectoris; K76.89 Other specified diseases of liver; I12.9 Hypertensive chronic kidney disease with stage 1 through stage 4 chronic kidney disease, or unspecified chronic kidney disease; E78.5 Hyperlipidemia, unspecified; R07.89 Other chest pain; E11.21 Type 2 diabetes mellitus with diabetic nephropathy; H81.09 Meniere's disease, unspecified ear; K44.9 Diaphragmatic hernia without obstruction or gangrene; G30.9 Alzheimer's disease, unspecified; I25.2 Old myocardial infarction; Z95.5 Presence of coronary angioplasty implant and graft; Z90.49 Acquired absence of other specified parts of digestive tract; Z83.3 Family history of diabetes mellitus; Z82.49 Family history of ischemic heart disease and other diseases of the circulatory system; Z80.8 Family history of malignant neoplasm of other organs or systems; Z80.42 Family history of malignant neoplasm of prostate; Z79.82 Long term (current) use of aspirin; Z79.899 Other long term (current) drug therapy
CPT/HCPCS: 36415; 51702; 70450; 71045; 74176; 76775; 80048; 80053; 81001; 82378; 82550; 82607; 82746; 82962; 83036; 83690; 83735; 84154; 84443; 84484; 85014; 85018; 85025; 85652; 87040; 87045; 87086; 87427; 87493; 93005; 93886; 95819; 96361; 96365; 96375; C9113; G0378; J0696; J2405; J3490

== ENCOUNTER → 2019-10-09 | Emergency (ER) | payer OTHER ==
[~2019-10-09] VITALS: Ht 185.4 cm; Wt 72.6 kg
[~2019-10-09] MED LIST changes: +ONDANSETRON ODT 4 MG TAB PO ONE
[2019-10-09 18:39] VITALS: BP 132/83
== END | disposition home or self-care (01) ==
LOC: ER 18:00
DX: M79.662 Pain in left lower leg (principal); T50.905A Adverse effect of unspecified drugs, medicaments and biological substances, initial encounter; I25.10 Atherosclerotic heart disease of native coronary artery without angina pectoris; E78.5 Hyperlipidemia, unspecified; I10 Essential (primary) hypertension; I25.2 Old myocardial infarction; Y92.89 Other specified places as the place of occurrence of the external cause
CPT/HCPCS: 93971; 99284; Q0162

== ENCOUNTER 2019-10-15 10:39 | Emergency (ER) | payer OTHER ==
[~2019-10-15] VITALS: Ht 185.4 cm; Wt 72.6 kg
[~2019-10-15 10:39] MED LIST changes: -ONDANSETRON ODT 4 MG TAB PO ONE
[2019-10-15 11:01] VITALS: BP 126/62
[2019-10-15] MEDS ORDERED: SODIUM CHLORIDE 0.9% 1,000 ML IV ONE (11:10)
[2019-10-15] MEDS ORDERED: TETANUS-DIPTH-ACEL PERTUSSIS 0.5ML SYR Tdap IM ONE (11:15)
[2019-10-15 12:31] LABS: Basophils # (auto) 0 10 ^3/uL (0-0.2); Basophils % (auto) 0.5 % (0.0-2.0); Eosinophils # (auto) 0.1 10 ^3/uL (0-0.8); Eosinophils % (auto) 0.5 % (0.0-7.0); Hematocrit 42.2 % (41.0-53.0); Hemoglobin 13.9 g/dL (13.5-17.5); Lymphocytes # (auto) 1.6 10 ^3/uL (0.4-5.4); Lymphocytes % (auto) 16.6 % (10.0-50.0); Mean Corpuscular Hemoglobin 27.4 pg (28.0-32.0); Mean Corpuscular Hgb Conc. 32.8 g/dL (32.0-36.0); Mean Corpuscular Volume 83.4 fL (80.0-100.0); Monocytes # (auto) 0.8 10 ^3/uL (0-1.3); Neutrophils # (auto) 7.3 10 ^3/uL (1.6-8.6); Neutrophils % (auto) 74.4 % (37.0-80.0); Nucleated Red Blood Cells % 0.1 %; Platelet Count (auto) 355 10^3/uL (140-450); Red Blood Cells 5.07 10^6/uL (4.5-5.90); Red Cell Distribution Width 14.4 % (11.8-14.3); White Blood Cell 9.8 10^3/uL (4.4-10.8)
[2019-10-15 12:46] LABS: Albumin 3.6 g/dL (3.4-5.0); Anion Gap 8 (5-15); Blood Urea Nitrogen 22 mg/dL (7-18); Calcium 9.9 mg/dL (8.5-10.1); Carbon Dioxide 25 mmol/L (21-32); Chloride 106 mmol/L (98-107); Glucose 107 mg/dL (74-106); Potassium 3.9 mmol/L (3.5-5.1); Sodium 139 mmol/L (136-145)
[2019-10-15 12:52] LABS: Alanine Aminotransferase 33 U/L (16-61); Alkaline Phosphatase 60 U/L (45-117); Aspartate Aminotransferase 24 U/L (15-37); BUN/Creatinine Ratio 14.4; Bilirubin, Total 0.7 mg/dL (0.2-1.0); GFR African American 56 mL/min; GFR Non-African American 46 mL/min; Total Protein 6.9 g/dL (6.4-8.2)
[2019-10-15 14:52] LABS: Urine Bacteria NONE SEEN /hpf (None Seen); Urine Blood Negative /uL (Negative); Urine Specific Gravity 1.009 (1.001-1.035); Urine WBC <1 /hpf (0 - 3)
[2019-10-15 15:14] LABS: Alcohol, Urine < 3.0 mg/dL (0-10); Amphetamine Screen, Urine NEGATIVE (NEGATIVE); Barbiturate Scree,Urine NEGATIVE (NEGATIVE); Benzodiazephine Screen, Urine NEGATIVE (NEGATIVE); Cannabinoid Screen, Urine NEGATIVE (NEGATIVE); Cocaine Screen, Urine NEGATIVE (NEGATIVE); Opiate Scree,Urine NEGATIVE (NEGATIVE); Phencyclidine Screen, Urine NEGATIVE (NEGATIVE)
== END 2019-10-15 19:14 | disposition home or self-care (01) ==
LOC: ER 10:39
DX: S00.01XA Abrasion of scalp, initial encounter (principal); R55 Syncope and collapse; G30.0 Alzheimer's disease with early onset; F02.80 Dementia in other diseases classified elsewhere, unspecified severity, without behavioral disturbance, psychotic disturbance, mood disturbance, and anxiety; I12.9 Hypertensive chronic kidney disease with stage 1 through stage 4 chronic kidney disease, or unspecified chronic kidney disease; N18.3 Chronic kidney disease, stage 3 (moderate); E78.5 Hyperlipidemia, unspecified; I25.2 Old myocardial infarction; Z90.49 Acquired absence of other specified parts of digestive tract; Z79.82 Long term (current) use of aspirin; Z79.899 Other long term (current) drug therapy; W19.XXXA Unspecified fall, initial encounter; Y93.89 Activity, other specified; Y92.091 Bathroom in other non-institutional residence as the place of occurrence of the external cause; Y99.8 Other external cause status
CPT/HCPCS: 36415; 70450; 71045; 80053; 80307; 81001; 83735; 84443; 84484; 85025; 90471; 90715; 93005

== ENCOUNTER 2020-08-20 03:40 | Inpatient (IN) | payer OTHER ==
[~2020-08-20] VITALS: Ht 182.9 cm; Wt 83.3 kg
[2020-08-20 04:26] LABS: Basophils # (auto) 0 10 ^3/uL (0-0.2); Basophils % (auto) 0.6 % (0.0-2.0); Eosinophils # (auto) 0.1 10 ^3/uL (0-0.8); Eosinophils % (auto) 1.5 % (0.0-7.0); Hematocrit 38.8 % (41.0-53.0); Hemoglobin 13.2 g/dL (13.5-17.5); Lymphocytes # (auto) 2.8 10 ^3/uL (0.4-5.4); Lymphocytes % (auto) 33.4 % (10.0-50.0); Mean Corpuscular Hemoglobin 27.9 pg (28.0-32.0); Mean Corpuscular Hgb Conc. 34.1 g/dL (32.0-36.0); Monocytes # (auto) 0.7 10 ^3/uL (0-1.3); Monocytes % (auto) 8.1 % (0.0-12.0); Neutrophils # (auto) 4.7 10 ^3/uL (1.6-8.6); Neutrophils % (auto) 56.4 % (37.0-80.0); Nucleated Red Blood Cells % 0.1 %; Platelet Count (auto) 285 10^3/uL (140-450); Red Blood Cells 4.73 10^6/uL (4.5-5.90); White Blood Cell 8.4 10^3/uL (4.4-10.8)
[2020-08-20 04:41] LABS: Albumin 3.5 g/dL (3.4-5.0); Calcium 8.9 mg/dL (8.5-10.1); Magnesium 2.6 mg/dL (1.6-2.6); Potassium 4.4 mmol/L (3.5-5.1)
[2020-08-20 04:44] LABS: BUN/Creatinine Ratio 22.4; Bilirubin, Total 0.3 mg/dL (0.2-1.0); Total Protein 6.4 g/dL (6.4-8.2)
[2020-08-20] MEDS ORDERED: ONDANSETRON HCL 4 MG/2 ML VIAL IV ONE (04:45)
[2020-08-20] MEDS ORDERED: HYDROmorphone HCL 2 MG/ML VL IV ONE ×2 (04:45→06:00)
[2020-08-20 04:50] LABS: INR 0.99 (0.9-1.15); Partial Thromboplastin Time 22.4 sec (23.0-31.2)
[2020-08-20 05:25] LABS: Urine Bacteria NONE SEEN /hpf (None Seen); Urine Blood Negative /uL (Negative); Urine Specific Gravity 1.011 (1.001-1.035); Urine WBC <1 /hpf (0 - 3)
[2020-08-20] MEDS ORDERED: ACETAMINOPHEN 500 MG TAB PO ONE (06:00)
[2020-08-20] MEDS ORDERED: SODIUM CHLORIDE 0.9% 500 ML IV ONE (06:00)
[2020-08-20] MEDS: SODIUM CHLORIDE 0.9% 1,000 ML IV SCH ×2 (06:45→09:35)
[2020-08-20] MEDS: MORPHINE SULFATE 4 MG/ML SYR/VIAL IV PRN ×3 (09:34→17:53)
[2020-08-20] MEDS: ONDANSETRON HCL 4 MG/2 ML VIAL IV PRN ×2 (09:35→13:46)
[2020-08-20] MEDS ORDERED: PANTOPRAZOLE 40 MG/10 ML VIAL INJ IV SCH (10:00)
[2020-08-20] MEDS ORDERED: DOCUSATE SOD 100 MG CAP PO PRN (13:45)
[2020-08-20] MEDS ORDERED: HYDROcodone-ACET 5/325MG TAB PO PRN (15:15)
[2020-08-20 17:00] VITALS: BP 150/72
[2020-08-20] MEDS: CALCIUM W/VIT D (600MG/400IU) TAB PO SCH (17:53)
[2020-08-20] MEDS: METOPROLOL TARTRATE 25 MG TAB PO SCH (20:54)
[2020-08-20] MEDS: HYDROcodone-ACET 5/325MG TAB PO PRN (20:54)
[2020-08-20 22:00] VITALS: BP 125/74
[2020-08-21 05:00] VITALS: BP 128/70
[2020-08-21] MEDS: HYDROcodone-ACET 5/325MG TAB PO PRN ×2 (05:34→12:24)
[2020-08-21 06:03] LABS: Basophils # (auto) 0.1 10 ^3/uL (0-0.2); Basophils % (auto) 0.6 % (0.0-2.0); Eosinophils # (auto) 0.3 10 ^3/uL (0-0.8); Eosinophils % (auto) 2.5 % (0.0-7.0); Hematocrit 36.6 % (41.0-53.0); Hemoglobin 12.9 g/dL (13.5-17.5); Lymphocytes % (auto) 19.4 % (10.0-50.0); Mean Corpuscular Hemoglobin 28.7 pg (28.0-32.0); Mean Corpuscular Hgb Conc. 35.3 g/dL (32.0-36.0); Mean Corpuscular Volume 81.4 fL (80.0-100.0); Monocytes # (auto) 0.9 10 ^3/uL (0-1.3); Monocytes % (auto) 8.9 % (0.0-12.0); Neutrophils # (auto) 7.1 10 ^3/uL (1.6-8.6); Neutrophils % (auto) 68.6 % (37.0-80.0); Platelet Count (auto) 238 10^3/uL (140-450); Red Blood Cells 4.49 10^6/uL (4.5-5.90); Red Cell Distribution Width 14.8 % (11.8-14.3); White Blood Cell 10.4 10^3/uL (4.4-10.8)
[2020-08-21 06:22] LABS: Albumin 3.3 g/dL (3.4-5.0); Calcium 8.9 mg/dL (8.5-10.1); Potassium 4.4 mmol/L (3.5-5.1)
[2020-08-21 06:27] LABS: BUN/Creatinine Ratio 22.5; Bilirubin, Total 0.9 mg/dL (0.2-1.0); Total Protein 6.1 g/dL (6.4-8.2)
[2020-08-21 08:13] VITALS: BP 105/51
[2020-08-21] MEDS: CALCIUM W/VIT D (600MG/400IU) TAB PO SCH ×2 (09:14→18:28)
[2020-08-21] MEDS: SODIUM CHLORIDE 0.9% 1,000 ML IV SCH (09:14)
[2020-08-21] MEDS: METOPROLOL TARTRATE 25 MG TAB PO SCH ×2 (09:15→22:09)
[2020-08-21 12:36] VITALS: BP 131/82
[2020-08-21] MEDS: MORPHINE SULFATE 4 MG/ML SYR/VIAL IV PRN ×2 (16:11→22:10)
[2020-08-21 16:25] VITALS: BP 128/71
[2020-08-21 22:00] VITALS: BP 144/77
[2020-08-21] MEDS: ONDANSETRON HCL 4 MG/2 ML VIAL IV PRN (22:10)
[2020-08-22] MEDS: HYDROcodone-ACET 5/325MG TAB PO PRN (01:58)
[2020-08-22 05:00] VITALS: BP 141/74
[2020-08-22] MEDS: MORPHINE SULFATE 4 MG/ML SYR/VIAL IV PRN ×2 (06:04→10:16)
[2020-08-22 07:56] VITALS: BP 135/78
[2020-08-22] MEDS: CALCIUM W/VIT D (600MG/400IU) TAB PO SCH ×2 (08:00→18:44)
[2020-08-22] MEDS: METOPROLOL TARTRATE 25 MG TAB PO SCH ×2 (09:59→21:32)
[2020-08-22] MEDS ORDERED: VANCOMYCIN HCL 1000 MG VL ONE (11:33)
[2020-08-22] MEDS ORDERED: EPINEPHrine HCL 1 MG/1 ML AMP ONE (11:33)
[2020-08-22] MEDS ORDERED: BUPIVACAINE 0.25% INJ 50ML VIAL ONE (11:34)
[2020-08-22] MEDS ORDERED: KETOROLAC TROMETH 30 MG/ML 1ML VIAL ONE (11:35)
[2020-08-22] MEDS ORDERED: MORPHINE SULF(PF) 0.5MG/ML 10ML VIAL ONE (11:35)
[2020-08-22] MEDS ORDERED: TRANEXAMIC ACID 20 ML ONE (11:41)
[2020-08-22] MEDS ORDERED: HYDROmorphone HCL 2 MG/ML VL ONE (12:05)
[2020-08-22] MEDS ORDERED: fentaNYL CITRATE 100 MCG/2 ML VL ONE (12:05)
[2020-08-22] MEDS ORDERED: MIDAZOLAM HCL 1MG/1ML-2 ML VIAL ONE (12:06)
[2020-08-22] MEDS ORDERED: LIDOCAINE 2% (LOCAL ANESTH.) PF 5ml SDV ONE (12:06)
[2020-08-22] MEDS ORDERED: DexAMETHasone SOD PHOS 10MG/1ML VIAL INJ ONE (12:06)
[2020-08-22] MEDS ORDERED: ETOMIDATE (2MG/ML) 20ML VIAL IV ONE (12:06)
[2020-08-22] MEDS ORDERED: ROCURONIUM 10MG/ML 10ML VIAL IV ONE (12:06)
[2020-08-22] MEDS ORDERED: PROPOFOL 10 MG/ML 20 ML IV ONE (12:06)
[2020-08-22] MEDS ORDERED: GLYCOPYRROLATE 0.2 MG/ML 1ML VIAL ONE (12:06)
[2020-08-22] MEDS: LACTATED RINGER'S 1,000 ML IV SCH (14:45)
[2020-08-22] MEDS ORDERED: HYDROmorphone HCL 2 MG/ML VL IV PRN ×2 (14:45→15:00)
[2020-08-22] MEDS ORDERED: ONDANSETRON HCL 4 MG/2 ML VIAL IV PRN (15:00)
[2020-08-22 17:16] VITALS: BP 109/77
[2020-08-22] MEDS: KETOROLAC TROMETH 30 MG/ML 1ML VIAL IV SCH (18:44)
[2020-08-22 20:00] VITALS: BP 126/84
[2020-08-22] MEDS: ceFAZolin 1GM/50ML 50 ML IV SCH (21:32)
[2020-08-22 22:00] VITALS: BP 126/84
[2020-08-23] MEDS: LACTATED RINGER'S 1,000 ML IV SCH ×2 (01:10→10:45)
[2020-08-23] MEDS: KETOROLAC TROMETH 30 MG/ML 1ML VIAL IV SCH ×4 (01:10→18:25)
[2020-08-23 05:00] VITALS: BP 136/86
[2020-08-23] MEDS: ceFAZolin 1GM/50ML 50 ML IV SCH ×3 (05:11→23:12)
[2020-08-23 05:38] LABS: Basophils # (auto) 0 10 ^3/uL (0-0.2); Basophils % (auto) 0.1 % (0.0-2.0); Eosinophils # (auto) 0 10 ^3/uL (0-0.8); Eosinophils % (auto) 0.1 % (0.0-7.0); Hematocrit 37.3 % (41.0-53.0); Hemoglobin 12.9 g/dL (13.5-17.5); Lymphocytes # (auto) 1.7 10 ^3/uL (0.4-5.4); Lymphocytes % (auto) 8.6 % (10.0-50.0); Mean Corpuscular Hemoglobin 28.3 pg (28.0-32.0); Mean Corpuscular Hgb Conc. 34.6 g/dL (32.0-36.0); Mean Corpuscular Volume 81.8 fL (80.0-100.0); Monocytes # (auto) 1.8 10 ^3/uL (0-1.3); Monocytes % (auto) 8.8 % (0.0-12.0); Neutrophils # (auto) 16.6 10 ^3/uL (1.6-8.6); Neutrophils % (auto) 82.4 % (37.0-80.0); Platelet Count (auto) 246 10^3/uL (140-450); Red Blood Cells 4.56 10^6/uL (4.5-5.90); Red Cell Distribution Width 14.7 % (11.8-14.3); White Blood Cell 20.1 10^3/uL (4.4-10.8)
[2020-08-23 05:55] LABS: BUN/Creatinine Ratio 23.2; Magnesium 2.1 mg/dL (1.6-2.6); Potassium 4.3 mmol/L (3.5-5.1)
[2020-08-23] MEDS: ONDANSETRON HCL 4 MG/2 ML VIAL IV PRN ×3 (06:33→23:14)
[2020-08-23] MEDS: HYDROcodone-ACET 10/325MG TAB PO PRN (08:35)
[2020-08-23] MEDS: RIVAROXABAN 10 MG TAB PO SCH (08:37)
[2020-08-23] MEDS: CALCIUM W/VIT D (600MG/400IU) TAB PO SCH ×2 (08:37→19:40)
[2020-08-23] MEDS: METOPROLOL TARTRATE 25 MG TAB PO SCH ×2 (08:38→23:15)
[2020-08-23 09:00] VITALS: BP 124/71
[2020-08-23] MEDS ORDERED: LACTULOSE 20Gm/30ML SOLN PO PRN (10:15)
[2020-08-23] MEDS ORDERED: LACTULOSE 20Gm/30ML SOLN PO ONE (10:15)
[2020-08-23] MEDS: HYDROmorphone HCL 2 MG/ML VL IV PRN ×3 (12:10→23:13)
[2020-08-23 13:00] VITALS: BP 141/87
[2020-08-23 17:00] VITALS: BP 126/75
[2020-08-23] MEDS: TAMSULOSIN HYDROCHLORIDE 0.4 MG CAP PO SCH (19:40)
[2020-08-23 20:00] VITALS: BP 140/82
[2020-08-23 21:30] VITALS: BP 140/82
[2020-08-24] MEDS: ONDANSETRON HCL 4 MG/2 ML VIAL IV PRN ×3 (04:23→17:35)
[2020-08-24] MEDS: KETOROLAC TROMETH 30 MG/ML 1ML VIAL IV SCH ×4 (05:09→17:12)
[2020-08-24 05:26] VITALS: BP 142/83
[2020-08-24 05:27] LABS: Basophils # (auto) 0.1 10 ^3/uL (0-0.2); Basophils % (auto) 0.5 % (0.0-2.0); Eosinophils # (auto) 0.1 10 ^3/uL (0-0.8); Eosinophils % (auto) 0.8 % (0.0-7.0); Hematocrit 37.5 % (41.0-53.0); Hemoglobin 12.8 g/dL (13.5-17.5); Lymphocytes # (auto) 1.9 10 ^3/uL (0.4-5.4); Mean Corpuscular Hemoglobin 28.4 pg (28.0-32.0); Mean Corpuscular Hgb Conc. 34.1 g/dL (32.0-36.0); Mean Corpuscular Volume 83.4 fL (80.0-100.0); Monocytes # (auto) 1.2 10 ^3/uL (0-1.3); Monocytes % (auto) 8.1 % (0.0-12.0); Neutrophils # (auto) 11.2 10 ^3/uL (1.6-8.6); Neutrophils % (auto) 77.6 % (37.0-80.0); Nucleated Red Blood Cells % 0.1 %; Platelet Count (auto) 261 10^3/uL (140-450); Red Blood Cells 4.49 10^6/uL (4.5-5.90); White Blood Cell 14.4 10^3/uL (4.4-10.8)
[2020-08-24] MEDS: HYDROmorphone HCL 2 MG/ML VL IV PRN ×4 (05:47→23:58)
[2020-08-24] MEDS: ceFAZolin 1GM/50ML 50 ML IV SCH ×3 (06:15→22:14)
[2020-08-24] MEDS: LACTATED RINGER'S 1,000 ML IV SCH ×3 (07:12→17:11)
[2020-08-24] MEDS: HYDROcodone-ACET 10/325MG TAB PO PRN ×2 (07:38→13:48)
[2020-08-24] MEDS: CALCIUM W/VIT D (600MG/400IU) TAB PO SCH ×2 (08:00→17:12)
[2020-08-24 09:00] VITALS: BP 135/82
[2020-08-24] MEDS ORDERED: FLEET ENEMA(ADULT) 135 ML PR ONE (10:00)
[2020-08-24] MEDS ORDERED: DOCUSATE SOD 100 MG CAP PO SCH (10:00)
[2020-08-24] MEDS: RIVAROXABAN 10 MG TAB PO SCH (10:25)
[2020-08-24] MEDS: METOPROLOL TARTRATE 25 MG TAB PO SCH ×2 (10:25→22:41)
[2020-08-24 13:12] VITALS: BP 134/81
[2020-08-24] MEDS ORDERED: DOCUSATE SOD 100 MG CAP PO ONE (15:45)
[2020-08-24 17:00] VITALS: BP 130/78
[2020-08-24] MEDS: TAMSULOSIN HYDROCHLORIDE 0.4 MG CAP PO SCH (17:12)
[2020-08-24] MEDS: LACTULOSE 20Gm/30ML SOLN PO PRN (17:35)
[2020-08-24 20:00] VITALS: BP 140/82
[2020-08-24] MEDS ORDERED: IOHEXOL 300 MG/ML 100ML BOTTLE IJ ONE (20:06)
[2020-08-24] MEDS ORDERED: PROMETHAZINE HCL 25 MG/ML 1ML IV PRN (21:00)
[2020-08-24 22:00] VITALS: BP 130/77
[2020-08-24] MEDS: DOCUSATE SOD 100 MG CAP PO SCH (22:40)
[2020-08-25] MEDS: KETOROLAC TROMETH 30 MG/ML 1ML VIAL IV SCH ×2 (00:59→06:17)
[2020-08-25 05:00] VITALS: BP 143/74
[2020-08-25] MEDS: LACTATED RINGER'S 1,000 ML IV SCH ×2 (05:54→22:35)
[2020-08-25 06:13] LABS: Basophils # (auto) 0 10 ^3/uL (0-0.2); Basophils % (auto) 0.2 % (0.0-2.0); Eosinophils # (auto) 0 10 ^3/uL (0-0.8); Eosinophils % (auto) 0.2 % (0.0-7.0); Hematocrit 33.2 % (41.0-53.0); Hemoglobin 11.6 g/dL (13.5-17.5); Lymphocytes # (auto) 1.2 10 ^3/uL (0.4-5.4); Lymphocytes % (auto) 9.3 % (10.0-50.0); Mean Corpuscular Hemoglobin 28.3 pg (28.0-32.0); Mean Corpuscular Hgb Conc. 34.8 g/dL (32.0-36.0); Mean Corpuscular Volume 81.2 fL (80.0-100.0); Monocytes # (auto) 1.1 10 ^3/uL (0-1.3); Monocytes % (auto) 8.6 % (0.0-12.0); Neutrophils # (auto) 10.5 10 ^3/uL (1.6-8.6); Neutrophils % (auto) 81.7 % (37.0-80.0); Platelet Count (auto) 258 10^3/uL (140-450); Red Blood Cells 4.09 10^6/uL (4.5-5.90); Red Cell Distribution Width 14.9 % (11.8-14.3); White Blood Cell 12.9 10^3/uL (4.4-10.8)
[2020-08-25] MEDS: ceFAZolin 1GM/50ML 50 ML IV SCH (06:16)
[2020-08-25 06:29] LABS: Calcium 9.1 mg/dL (8.5-10.1); Potassium 3.6 mmol/L (3.5-5.1)
[2020-08-25 06:32] LABS: BUN/Creatinine Ratio 29.4
[2020-08-25] MEDS: CALCIUM W/VIT D (600MG/400IU) TAB PO SCH ×2 (08:00→18:16)
[2020-08-25 08:54] VITALS: BP 129/71
[2020-08-25] MEDS: DOCUSATE SOD 100 MG CAP PO SCH ×2 (10:00→22:36)
[2020-08-25] MEDS: METOPROLOL TARTRATE 25 MG TAB PO SCH ×2 (10:00→22:00)
[2020-08-25] MEDS: RIVAROXABAN 10 MG TAB PO SCH (10:00)
[2020-08-25 12:07] LABS: INR 1.18 (0.9-1.15); Partial Thromboplastin Time 29.8 sec (23.0-31.2)
[2020-08-25 13:00] VITALS: BP 102/58
[2020-08-25] MEDS ORDERED: EPINEPHrine HCL 1 MG/1 ML AMP ONE (13:33)
[2020-08-25] MEDS ORDERED: VANCOMYCIN HCL 1000 MG VL ONE (13:33)
[2020-08-25] MEDS ORDERED: SUCCINYLCHOLINE CHLORIDE 20 MG/ML 10ML VIAL IV ONE (13:47)
[2020-08-25] MEDS ORDERED: MIDAZOLAM HCL 1MG/1ML-2 ML VIAL ONE (13:49)
[2020-08-25] MEDS ORDERED: MEPERIDINE HCL (25 MG/ML) 1ML VIAL ONE (13:49)
[2020-08-25] MEDS ORDERED: fentaNYL CITRATE 100 MCG/2 ML VL ONE (13:49)
[2020-08-25] MEDS ORDERED: PROPOFOL 10 MG/ML 20 ML IV ONE (13:50)
[2020-08-25] MEDS ORDERED: DexAMETHasone SOD PHOS 10MG/1ML VIAL INJ ONE (13:50)
[2020-08-25] MEDS ORDERED: HYDROmorphone HCL 2 MG/ML VL IV PRN (14:45)
[2020-08-25] MEDS ORDERED: DOCUSATE SOD 100 MG CAP PO ONE (14:45)
[2020-08-25] MEDS ORDERED: LABETALOL HCL 5 MG/ML 4ML SYRINGE IV PRN (14:45)
[2020-08-25] MEDS ORDERED: ONDANSETRON HCL 4 MG/2 ML VIAL IV PRN (14:45)
[2020-08-25] MEDS ORDERED: MIDAZOLAM HCL 1MG/1ML-2 ML VIAL IV PRN (14:45)
[2020-08-25] MEDS ORDERED: ENOXAPARIN SOD 30 MG/0.3 ML SYRINGE SC ONE (14:45)
[2020-08-25] MEDS ORDERED: CALCIUM W/VIT D (600MG/400IU) TAB PO ONE (14:45)
[2020-08-25] MEDS ORDERED: MORPHINE SULFATE 4 MG/ML SYR/VIAL IV PRN (14:45)
[2020-08-25] MEDS: ePHEDrine SULFATE 50 MG/ML AMP IV PRN ×6 (15:16→16:25)
[2020-08-25 17:12] VITALS: BP 98/45
[2020-08-25] MEDS: TAMSULOSIN HYDROCHLORIDE 0.4 MG CAP PO SCH (18:16)
[2020-08-25 18:30] VITALS: BP 92/55
[2020-08-25 22:00] VITALS: BP 110/57
[2020-08-25] MEDS ORDERED: TEMAZEPAM 15 MG CAP PO ONE (22:45)
[2020-08-26 05:00] VITALS: BP 116/69
[2020-08-26 07:17] LABS: Basophils # (auto) 0 10 ^3/uL (0-0.2); Basophils % (auto) 0.1 % (0.0-2.0); Eosinophils # (auto) 0 10 ^3/uL (0-0.8); Eosinophils % (auto) 0.1 % (0.0-7.0); Hematocrit 27.1 % (41.0-53.0); Hemoglobin 9.6 g/dL (13.5-17.5); Lymphocytes % (auto) 9.3 % (10.0-50.0); Mean Corpuscular Hemoglobin 28.9 pg (28.0-32.0); Mean Corpuscular Hgb Conc. 35.6 g/dL (32.0-36.0); Mean Corpuscular Volume 81.2 fL (80.0-100.0); Monocytes # (auto) 1.2 10 ^3/uL (0-1.3); Monocytes % (auto) 11.2 % (0.0-12.0); Neutrophils # (auto) 8.3 10 ^3/uL (1.6-8.6); Neutrophils % (auto) 79.3 % (37.0-80.0); Platelet Count (auto) 237 10^3/uL (140-450); Red Blood Cells 3.33 10^6/uL (4.5-5.90); Red Cell Distribution Width 14.3 % (11.8-14.3); White Blood Cell 10.4 10^3/uL (4.4-10.8)
[2020-08-26 07:36] LABS: BUN/Creatinine Ratio 30.4; Calcium 8.8 mg/dL (8.5-10.1); Magnesium 2.2 mg/dL (1.6-2.6); Potassium 4.1 mmol/L (3.5-5.1)
[2020-08-26 09:12] VITALS: BP 106/67
[2020-08-26] MEDS ORDERED: ENOXAPARIN SOD 40 MG/0.4 ML SYRINGE SC SCH (10:00)
[2020-08-26] MEDS ORDERED: PHENYLEPHRINE HCL 10 MG/ML VL IV ONE (10:26)
[2020-08-26] MEDS: CALCIUM W/VIT D (600MG/400IU) TAB PO SCH ×2 (10:34→16:50)
[2020-08-26] MEDS: DOCUSATE SOD 100 MG CAP PO SCH ×2 (10:34→23:16)
[2020-08-26 13:00] VITALS: BP 97/55
[2020-08-26] MEDS: TAMSULOSIN HYDROCHLORIDE 0.4 MG CAP PO SCH (16:50)
[2020-08-26] MEDS: HYDROcodone-ACET 10/325MG TAB PO PRN ×2 (16:51→23:19)
[2020-08-26 17:17] VITALS: BP 107/65
[2020-08-26] MEDS: METOPROLOL TARTRATE 25 MG TAB PO SCH (23:15)
[2020-08-27] VITALS (7 sets, daily range): BP systolic 91–117; BP diastolic 55–73
[2020-08-27] MEDS: HYDROmorphone HCL 2 MG/ML VL IV PRN ×4 (01:45→21:46)
[2020-08-27 06:34] LABS: Basophils # (auto) 0 10 ^3/uL (0-0.2); Basophils % (auto) 0.5 % (0.0-2.0); Eosinophils # (auto) 0.3 10 ^3/uL (0-0.8); Eosinophils % (auto) 3.6 % (0.0-7.0); Hematocrit 27.5 % (41.0-53.0); Hemoglobin 9.5 g/dL (13.5-17.5); Lymphocytes # (auto) 1.6 10 ^3/uL (0.4-5.4); Lymphocytes % (auto) 20.5 % (10.0-50.0); Mean Corpuscular Hemoglobin 28.2 pg (28.0-32.0); Mean Corpuscular Hgb Conc. 34.6 g/dL (32.0-36.0); Mean Corpuscular Volume 81.7 fL (80.0-100.0); Monocytes % (auto) 12.2 % (0.0-12.0); Neutrophils % (auto) 63.2 % (37.0-80.0); Platelet Count (auto) 260 10^3/uL (140-450); Red Blood Cells 3.37 10^6/uL (4.5-5.90); Red Cell Distribution Width 14.6 % (11.8-14.3); White Blood Cell 7.8 10^3/uL (4.4-10.8)
[2020-08-27] MEDS: CALCIUM W/VIT D (600MG/400IU) TAB PO SCH ×2 (08:00→18:03)
[2020-08-27] MEDS: oxyCODONE ER 10 MG TAB PO SCH ×2 (10:00→23:12)
[2020-08-27] MEDS: METOPROLOL TARTRATE 25 MG TAB PO SCH ×2 (10:00→22:00)
[2020-08-27] MEDS: RIVAROXABAN 10 MG TAB PO SCH (10:00)
[2020-08-27] MEDS: DOCUSATE SOD 100 MG CAP PO SCH ×2 (10:00→23:11)
[2020-08-27] MEDS: TAMSULOSIN HYDROCHLORIDE 0.4 MG CAP PO SCH (18:03)
[2020-08-28] MEDS: HYDROmorphone HCL 2 MG/ML VL IV PRN ×3 (03:46→22:42)
[2020-08-28 05:00] VITALS: BP 105/59
[2020-08-28 05:55] LABS: Basophils # (auto) 0.1 10 ^3/uL (0-0.2); Basophils % (auto) 0.6 % (0.0-2.0); Eosinophils # (auto) 0.3 10 ^3/uL (0-0.8); Eosinophils % (auto) 2.9 % (0.0-7.0); Hematocrit 27.8 % (41.0-53.0); Hemoglobin 9.7 g/dL (13.5-17.5); Lymphocytes # (auto) 2.1 10 ^3/uL (0.4-5.4); Lymphocytes % (auto) 18.5 % (10.0-50.0); Mean Corpuscular Hemoglobin 28.5 pg (28.0-32.0); Mean Corpuscular Volume 81.5 fL (80.0-100.0); Monocytes # (auto) 1.1 10 ^3/uL (0-1.3); Monocytes % (auto) 9.8 % (0.0-12.0); Neutrophils # (auto) 7.7 10 ^3/uL (1.6-8.6); Neutrophils % (auto) 68.2 % (37.0-80.0); Platelet Count (auto) 306 10^3/uL (140-450); Red Blood Cells 3.42 10^6/uL (4.5-5.90); Red Cell Distribution Width 14.4 % (11.8-14.3); White Blood Cell 11.2 10^3/uL (4.4-10.8)
[2020-08-28] MEDS: HYDROcodone-ACET 10/325MG TAB PO PRN ×2 (06:39→17:07)
[2020-08-28 07:30] VITALS: BP 113/87
[2020-08-28 08:15] VITALS: BP_SYST 113; BP_SYST 121; BP_DIAS 62; BP_DIAS 64
[2020-08-28] MEDS: CALCIUM W/VIT D (600MG/400IU) TAB PO SCH ×2 (09:01→17:39)
[2020-08-28] MEDS: RIVAROXABAN 10 MG TAB PO SCH (09:01)
[2020-08-28] MEDS: oxyCODONE ER 10 MG TAB PO SCH ×2 (09:02→21:20)
[2020-08-28] MEDS: METOPROLOL TARTRATE 25 MG TAB PO SCH ×2 (09:07→21:20)
[2020-08-28] MEDS: DOCUSATE SOD 100 MG CAP PO SCH ×2 (09:07→21:19)
[2020-08-28 12:30] VITALS: BP 113/66
[2020-08-28 17:15] VITALS: BP 127/74
[2020-08-28] MEDS: TAMSULOSIN HYDROCHLORIDE 0.4 MG CAP PO SCH (17:39)
[2020-08-28 22:07] VITALS: BP 116/71
[2020-08-29] VITALS (7 sets, daily range): BP systolic 92–115; BP diastolic 47–87
[2020-08-29] MEDS: HYDROcodone-ACET 10/325MG TAB PO PRN ×3 (00:34→14:07)
[2020-08-29] MEDS: HYDROmorphone HCL 2 MG/ML VL IV PRN ×2 (04:04→20:39)
[2020-08-29 05:37] LABS: Basophils # (auto) 0.1 10 ^3/uL (0-0.2); Basophils % (auto) 0.6 % (0.0-2.0); Eosinophils # (auto) 0.3 10 ^3/uL (0-0.8); Hematocrit 26.9 % (41.0-53.0); Hemoglobin 9.4 g/dL (13.5-17.5); Lymphocytes # (auto) 2.8 10 ^3/uL (0.4-5.4); Lymphocytes % (auto) 25.5 % (10.0-50.0); Mean Corpuscular Hemoglobin 28.3 pg (28.0-32.0); Mean Corpuscular Hgb Conc. 34.9 g/dL (32.0-36.0); Mean Corpuscular Volume 81.2 fL (80.0-100.0); Monocytes # (auto) 1.1 10 ^3/uL (0-1.3); Monocytes % (auto) 9.7 % (0.0-12.0); Neutrophils # (auto) 6.8 10 ^3/uL (1.6-8.6); Neutrophils % (auto) 61.2 % (37.0-80.0); Nucleated Red Blood Cells % 0.1 %; Platelet Count (auto) 301 10^3/uL (140-450); Red Blood Cells 3.31 10^6/uL (4.5-5.90); Red Cell Distribution Width 14.3 % (11.8-14.3); White Blood Cell 11.1 10^3/uL (4.4-10.8)
[2020-08-29] MEDS: CALCIUM W/VIT D (600MG/400IU) TAB PO SCH ×2 (09:21→17:14)
[2020-08-29] MEDS: oxyCODONE ER 10 MG TAB PO SCH ×2 (09:22→21:44)
[2020-08-29] MEDS: METOPROLOL TARTRATE 25 MG TAB PO SCH ×2 (10:00→22:00)
[2020-08-29] MEDS: DOCUSATE SOD 100 MG CAP PO SCH ×2 (10:01→21:45)
[2020-08-29] MEDS: RIVAROXABAN 10 MG TAB PO SCH (10:02)
[2020-08-29] MEDS: TAMSULOSIN HYDROCHLORIDE 0.4 MG CAP PO SCH (17:14)
[2020-08-29] MEDS: LACTULOSE 20Gm/30ML SOLN PO PRN (17:14)
[2020-08-30] MEDS: HYDROcodone-ACET 10/325MG TAB PO PRN ×3 (04:01→23:23)
[2020-08-30 05:05] VITALS: BP 124/66
[2020-08-30 05:18] LABS: Hematocrit 29.3 % (41.0-53.0)
[2020-08-30 05:34] LABS: Calcium 8.3 mg/dL (8.5-10.1); Potassium 4.3 mmol/L (3.5-5.1)
[2020-08-30 05:36] LABS: BUN/Creatinine Ratio 29.2
[2020-08-30] MEDS: CALCIUM W/VIT D (600MG/400IU) TAB PO SCH ×2 (08:44→18:19)
[2020-08-30] MEDS: HYDROmorphone HCL 2 MG/ML VL IV PRN ×2 (08:50→15:09)
[2020-08-30 08:57] VITALS: BP 132/70
[2020-08-30] MEDS: oxyCODONE ER 10 MG TAB PO SCH ×2 (10:00→21:44)
[2020-08-30] MEDS: METOPROLOL TARTRATE 25 MG TAB PO SCH ×2 (10:00→21:45)
[2020-08-30] MEDS: RIVAROXABAN 10 MG TAB PO SCH (10:38)
[2020-08-30] MEDS: DOCUSATE SOD 100 MG CAP PO SCH ×2 (10:39→21:45)
[2020-08-30 13:00] VITALS: BP 110/72
[2020-08-30] MEDS ORDERED: FLEET ENEMA(ADULT) 135 ML PR ONE (13:00)
[2020-08-30 16:57] VITALS: BP 119/71
[2020-08-30] MEDS: TAMSULOSIN HYDROCHLORIDE 0.4 MG CAP PO SCH (18:19)
[2020-08-30 20:00] VITALS: BP 109/66
[2020-08-30 22:20] VITALS: BP 109/66
[2020-08-31] MEDS: HYDROmorphone HCL 2 MG/ML VL IV PRN ×2 (01:32→08:27)
[2020-08-31] MEDS: HYDROcodone-ACET 10/325MG TAB PO PRN (04:04)
[2020-08-31 05:15] VITALS: BP 111/65
[2020-08-31] MEDS: METOPROLOL TARTRATE 25 MG TAB PO SCH (08:25)
[2020-08-31] MEDS: RIVAROXABAN 10 MG TAB PO SCH (08:26)
[2020-08-31] MEDS: CALCIUM W/VIT D (600MG/400IU) TAB PO SCH (08:26)
[2020-08-31] MEDS: DOCUSATE SOD 100 MG CAP PO SCH (08:26)
[2020-08-31 08:48] VITALS: BP 119/75
[2020-08-31] MEDS: oxyCODONE ER 10 MG TAB PO SCH (10:05)
[2020-08-31 12:32] VITALS: BP 102/60
== END 2020-08-31 14:00 | DRG 521 ==
LOC: EDBD 03:40 → ER 03:45 → OVERFLOW 06:27 → WEST WING 17:00 → TELE-WESTW 08-23 05:57
PROVIDERS: ADMIT Nurse Practitioner; ATTEND Internal Medicine
PROC: 0SRS0J9 Replacement of Left Hip Joint, Femoral Surface with Synthetic Substitute, Cemented, Open Approach (ICD-10-PCS; principal; 2020-08-22 12:08)
PROC: 0SSB3ZZ Reposition Left Hip Joint, Percutaneous Approach (ICD-10-PCS; 2020-08-25)
DX: S72.012A Unspecified intracapsular fracture of left femur, initial encounter for closed fracture (principal); N17.0 Acute kidney failure with tubular necrosis; I24.9 Acute ischemic heart disease, unspecified; K56.7 Ileus, unspecified; N39.0 Urinary tract infection, site not specified; T84.021A Dislocation of internal left hip prosthesis, initial encounter; E78.5 Hyperlipidemia, unspecified; Y79.2 Prosthetic and other implants, materials and accessory orthopedic devices associated with adverse incidents; Y92.238 Other place in hospital as the place of occurrence of the external cause; I12.9 Hypertensive chronic kidney disease with stage 1 through stage 4 chronic kidney disease, or unspecified chronic kidney disease; I25.10 Atherosclerotic heart disease of native coronary artery without angina pectoris; I70.0 Atherosclerosis of aorta; N18.32 Chronic kidney disease, stage 3b; M81.0 Age-related osteoporosis without current pathological fracture; N40.0 Benign prostatic hyperplasia without lower urinary tract symptoms; F03.90 Unspecified dementia, unspecified severity, without behavioral disturbance, psychotic disturbance, mood disturbance, and anxiety; Z20.822 Contact with and (suspected) exposure to COVID-19; Z96.611 Presence of right artificial shoulder joint; K57.30 Diverticulosis of large intestine without perforation or abscess without bleeding; N43.3 Hydrocele, unspecified; W10.9XXA Fall (on) (from) unspecified stairs and steps, initial encounter; R31.0 Gross hematuria; Y93.01 Activity, walking, marching and hiking; Z80.0 Family history of malignant neoplasm of digestive organs; Z80.42 Family history of malignant neoplasm of prostate; Z79.82 Long term (current) use of aspirin; Z98.61 Coronary angioplasty status; Z90.49 Acquired absence of other specified parts of digestive tract; Y92.89 Other specified places as the place of occurrence of the external cause; Y99.8 Other external cause status
CPT/HCPCS: 36415; 71045; 72170; 73501; 73502; 73700; 74176; 76000; 80048; 80053; 81001; 83735; 85014; 85018; 85025; 85048; 85610; 85730; 86850; 86900; 86901; 87426; 93005; 93306; 96374; 96375; 96376; 97110; 97116; 97530; A4565; C9113; G0378; J0171; J0330; J0690; J1100; J1885; J2001; J2250; J2405; J2704; J3490

== ENCOUNTER 2020-09-09 17:14 | Emergency (ER) | payer OTHER ==
[~2020-09-09] VITALS: Ht 177.8 cm; Wt 77.1 kg
[2020-09-09 17:14] VITALS: BP 111/68
[2020-09-09 18:07] LABS: Eosinophils # (auto) 0.2 10 ^3/uL (0-0.8); Nucleated Red Blood Cells % 0.1 %; White Blood Cell 11.1 10^3/uL (4.4-10.8)
[2020-09-09 18:09] LABS: Basophils # (auto) 0.1 10 ^3/uL (0-0.2); Basophils % (auto) 0.8 % (0.0-2.0); Eosinophils % (auto) 1.9 % (0.0-7.0); Hematocrit 31.3 % (41.0-53.0); Hemoglobin 10.3 g/dL (13.5-17.5); Lymphocytes # (auto) 3.2 10 ^3/uL (0.4-5.4); Lymphocytes % (auto) 28.6 % (10.0-50.0); Mean Corpuscular Hemoglobin 26.5 pg (28.0-32.0); Mean Corpuscular Volume 80.3 fL (80.0-100.0); Monocytes % (auto) 8.8 % (0.0-12.0); Neutrophils # (auto) 6.6 10 ^3/uL (1.6-8.6); Neutrophils % (auto) 59.9 % (37.0-80.0); Platelet Count (auto) 688 10^3/uL (140-450); Red Cell Distribution Width 14.5 % (11.8-14.3)
[2020-09-09 18:14] LABS: Albumin 2.7 g/dL (3.4-5.0); Calcium 9.1 mg/dL (8.5-10.1); Potassium 4.5 mmol/L (3.5-5.1)
[2020-09-09 18:15] LABS: INR 1.03 (0.9-1.15); Partial Thromboplastin Time 24.7 sec (23.0-31.2)
[2020-09-09 18:18] LABS: BUN/Creatinine Ratio 26.7; Bilirubin, Total 0.5 mg/dL (0.2-1.0); Total Protein 6.4 g/dL (6.4-8.2)
[2020-09-09] MEDS ORDERED: ONDANSETRON HCL 4 MG/2 ML VIAL IV ONE (20:00)
[2020-09-09] MEDS ORDERED: MORPHINE SULFATE 4 MG/ML SYR/VIAL IV ONE (20:00)
== END 2020-09-09 22:16 | disposition home or self-care (01) ==
LOC: EDUNIT# 17:14 → ER 17:14 → EDBD 17:14 → ER 22:16
DX: R33.9 Retention of urine, unspecified (principal); R31.9 Hematuria, unspecified
CPT/HCPCS: 36415; 51702; 80053; 85025; 85610; 85730; 96374; 96375; 99284; J2270; J2405

== ENCOUNTER 2020-09-13 08:36 | Inpatient (IN) | payer OTHER ==
[~2020-09-13] VITALS: Ht 182.9 cm; Wt 82.0 kg
[2020-09-13 09:14] LABS: Basophils # (auto) 0.1 10 ^3/uL (0-0.2); Eosinophils # (auto) 0.3 10 ^3/uL (0-0.8); Lymphocytes # (auto) 2.8 10 ^3/uL (0.4-5.4); Mean Corpuscular Volume 79.3 fL (80.0-100.0); Monocytes # (auto) 0.9 10 ^3/uL (0-1.3)
[2020-09-13 09:15] LABS: Eosinophils % (auto) 2.4 % (0.0-7.0); Hematocrit 29.5 % (41.0-53.0); Hemoglobin 10.3 g/dL (13.5-17.5); Lymphocytes % (auto) 25.6 % (10.0-50.0); Mean Corpuscular Hemoglobin 27.6 pg (28.0-32.0); Mean Corpuscular Hgb Conc. 34.8 g/dL (32.0-36.0); Monocytes % (auto) 8.3 % (0.0-12.0); Neutrophils # (auto) 6.9 10 ^3/uL (1.6-8.6); Neutrophils % (auto) 62.7 % (37.0-80.0); Platelet Count (auto) 606 10^3/uL (140-450); Red Blood Cells 3.72 10^6/uL (4.5-5.90); Red Cell Distribution Width 14.3 % (11.8-14.3)
[2020-09-13 09:26] LABS: Albumin 3.1 g/dL (3.4-5.0); Calcium 9.5 mg/dL (8.5-10.1); Potassium 3.4 mmol/L (3.5-5.1)
[2020-09-13 09:29] LABS: BUN/Creatinine Ratio 19.9; Bilirubin, Total 0.4 mg/dL (0.2-1.0); Total Protein 6.9 g/dL (6.4-8.2)
[2020-09-13 09:30] LABS: Urine Bacteria MANY /hpf (None Seen); Urine Blood 3+ /uL (Negative); Urine Mucus FEW (None Seen); Urine WBC 501 /hpf (0 - 3)
[2020-09-13] MEDS ORDERED: cefTRIAXone 1GM/50ML D5W 50 ML IV ONE (10:15)
[2020-09-13] MEDS ORDERED: SODIUM CHLORIDE 0.9% 500 ML IV ONE (10:15)
[2020-09-13 10:55] LABS: INR 1.08 (0.9-1.15); Partial Thromboplastin Time 24.9 sec (23.0-31.2)
[2020-09-13 10:57] LABS: Lactic Acid w/Reflex 2.6 mmol/L (0.4-2.0)
[2020-09-13] MEDS ORDERED: SODIUM CHLORIDE 0.9% 1,000 ML IV ONE (11:30)
[2020-09-13] MEDS ORDERED: POTASSIUM EFFERVESENT TAB 25 MEQ GT ONE (13:30)
[2020-09-13] MEDS ORDERED: LIDOCAINE 2% JELLY 11ml (GLYDO) UR ONE (15:30)
[2020-09-13] MEDS ORDERED: ACETAMINOPHEN 500 MG TAB PO PRN (15:45)
[2020-09-13] MEDS ORDERED: LACTULOSE 20Gm/30ML SOLN PO PRN (15:45)
[2020-09-13] MEDS ORDERED: hydrALAZINE HCL 20 MG/ML VL IV PRN (15:45)
[2020-09-13] MEDS ORDERED: NITROGLYCERIN 0.4 MG SL TAB SL PRN (15:45)
[2020-09-13] MEDS ORDERED: MORPHINE SULF INJ 2 MG/ML SYRINGE 1ML IV PRN (15:45)
[2020-09-13] MEDS ORDERED: BELLADONNA ALKAL/OPIUM (16.2/30MG) RECT SUPP PR ONE (16:15)
[2020-09-13] MEDS: SODIUM CHLORIDE 0.9% 1,000 ML IV SCH (16:40)
[2020-09-13 18:06] LABS: Hemoglobin 9.2 g/dL (13.5-17.5)
[2020-09-13 18:09] LABS: Hematocrit 25.8 % (41.0-53.0)
[2020-09-13] MEDS: MORPHINE SULFATE 4 MG/ML SYR/VIAL IV PRN (18:30)
[2020-09-13] MEDS: ONDANSETRON HCL 4 MG/2 ML VIAL IV PRN (18:30)
[2020-09-13 19:55] VITALS: BP 94/63
[2020-09-13 21:53] LABS: Hemoglobin 8.4 g/dL (13.5-17.5)
[2020-09-13 21:55] LABS: Hematocrit 23.7 % (41.0-53.0)
[2020-09-13 22:00] VITALS: BP 94/63
[2020-09-14] VITALS (16 sets, daily range): BP systolic 92–114; BP diastolic 40–62
[2020-09-14] MEDS: SODIUM CHLORIDE 0.9% 1,000 ML IV SCH ×2 (05:10→12:07)
[2020-09-14] MEDS: MORPHINE SULFATE 4 MG/ML SYR/VIAL IV PRN ×2 (05:12→09:35)
[2020-09-14 08:15] LABS: Basophils # (auto) 0.1 10 ^3/uL (0-0.2); Basophils % (auto) 0.8 % (0.0-2.0); Eosinophils # (auto) 0.4 10 ^3/uL (0-0.8); Eosinophils % (auto) 3.8 % (0.0-7.0); Hematocrit 24.3 % (41.0-53.0); Hemoglobin 8.5 g/dL (13.5-17.5); Lymphocytes # (auto) 1.8 10 ^3/uL (0.4-5.4); Lymphocytes % (auto) 16.7 % (10.0-50.0); Mean Corpuscular Hemoglobin 27.9 pg (28.0-32.0); Mean Corpuscular Hgb Conc. 34.8 g/dL (32.0-36.0); Monocytes # (auto) 0.9 10 ^3/uL (0-1.3); Monocytes % (auto) 8.7 % (0.0-12.0); Neutrophils # (auto) 7.6 10 ^3/uL (1.6-8.6); Platelet Count (auto) 405 10^3/uL (140-450); Red Blood Cells 3.04 10^6/uL (4.5-5.90); Red Cell Distribution Width 14.3 % (11.8-14.3); White Blood Cell 10.8 10^3/uL (4.4-10.8)
[2020-09-14] MEDS: cefTRIAXone 1GM/50ML D5W 50 ML IV SCH (09:34)
[2020-09-14 09:45] LABS: Hematocrit 25.4 % (41.0-53.0); Hemoglobin 8.8 g/dL (13.5-17.5)
[2020-09-14] MEDS ORDERED: PANTOPRAZOLE 40 MG TAB PO SCH (10:00)
[2020-09-14 10:11] LABS: Albumin 2.5 g/dL (3.4-5.0); BUN/Creatinine Ratio 20.3; Bilirubin, Total 0.4 mg/dL (0.2-1.0); Calcium 8.5 mg/dL (8.5-10.1); Total Protein 5.6 g/dL (6.4-8.2)
[2020-09-14] MEDS: BELLADONNA ALKAL/OPIUM (16.2/30MG) RECT SUPP PR SCH ×2 (12:07→21:42)
[2020-09-14 15:35] LABS: Hemoglobin 8.7 g/dL (13.5-17.5)
[2020-09-14 15:36] LABS: Hematocrit 25.3 % (41.0-53.0)
[2020-09-14] MEDS: LORazepam 0.5 MG TAB PO PRN (16:15)
[2020-09-14] MEDS: HYDROcodone-ACET 5/325MG TAB PO PRN (21:43)
[2020-09-15] VITALS (17 sets, daily range): BP systolic 87–121; BP diastolic 41–71
[2020-09-15] MEDS: SODIUM CHLORIDE 0.9% 1,000 ML IV SCH ×2 (01:26→18:03)
[2020-09-15 05:09] LABS: Basophils # (auto) 0.1 10 ^3/uL (0-0.2); Eosinophils # (auto) 0.4 10 ^3/uL (0-0.8); Lymphocytes # (auto) 2.5 10 ^3/uL (0.4-5.4); Neutrophils # (auto) 4.6 10 ^3/uL (1.6-8.6); White Blood Cell 8.6 10^3/uL (4.4-10.8)
[2020-09-15 05:10] LABS: Basophils % (auto) 1.1 % (0.0-2.0); Eosinophils % (auto) 4.9 % (0.0-7.0); Hematocrit 24.2 % (41.0-53.0); Hemoglobin 8.1 g/dL (13.5-17.5); Mean Corpuscular Hgb Conc. 33.5 g/dL (32.0-36.0); Mean Corpuscular Volume 80.6 fL (80.0-100.0); Monocytes % (auto) 11.4 % (0.0-12.0); Neutrophils % (auto) 53.6 % (37.0-80.0); Platelet Count (auto) 399 10^3/uL (140-450); Red Cell Distribution Width 14.2 % (11.8-14.3)
[2020-09-15 05:29] LABS: Albumin 2.4 g/dL (3.4-5.0); BUN/Creatinine Ratio 20.6; Calcium 8.4 mg/dL (8.5-10.1); Potassium 4.4 mmol/L (3.5-5.1)
[2020-09-15 05:32] LABS: Bilirubin, Total 0.3 mg/dL (0.2-1.0); Total Protein 5.5 g/dL (6.4-8.2)
[2020-09-15] MEDS: HYDROcodone-ACET 5/325MG TAB PO PRN ×2 (05:34→15:54)
[2020-09-15] MEDS: PANTOPRAZOLE 40 MG/10 ML VIAL INJ IV SCH (09:51)
[2020-09-15] MEDS: cefTRIAXone 1GM/50ML D5W 50 ML IV SCH (09:51)
[2020-09-15] MEDS: BELLADONNA ALKAL/OPIUM (16.2/30MG) RECT SUPP PR SCH ×2 (09:52→22:00)
[2020-09-15] MEDS: SODIUM FERR GLUC 62.5MG/5ML 125 MG in SODIUM CHL 0.9% 100 ML IV SCH (12:36)
[2020-09-15] MEDS ORDERED: MAGNESIUM CITRATE SOLUTION 300 ML BTL PO PRN (15:00)
[2020-09-15] MEDS: ONDANSETRON HCL 4 MG/2 ML VIAL IV PRN (23:35)
[2020-09-16] VITALS (17 sets, daily range): BP systolic 99–138; BP diastolic 52–70
[2020-09-16 05:45] LABS: Basophils # (auto) 0.1 10 ^3/uL (0-0.2); Basophils % (auto) 1.1 % (0.0-2.0); Eosinophils # (auto) 0.5 10 ^3/uL (0-0.8); Eosinophils % (auto) 5.4 % (0.0-7.0); Hematocrit 24.5 % (41.0-53.0); Hemoglobin 8.5 g/dL (13.5-17.5); Lymphocytes # (auto) 2.6 10 ^3/uL (0.4-5.4); Lymphocytes % (auto) 29.1 % (10.0-50.0); Mean Corpuscular Hemoglobin 27.6 pg (28.0-32.0); Mean Corpuscular Hgb Conc. 34.5 g/dL (32.0-36.0); Mean Corpuscular Volume 79.8 fL (80.0-100.0); Monocytes # (auto) 0.9 10 ^3/uL (0-1.3); Monocytes % (auto) 10.3 % (0.0-12.0); Neutrophils # (auto) 4.8 10 ^3/uL (1.6-8.6); Neutrophils % (auto) 54.1 % (37.0-80.0); Platelet Count (auto) 410 10^3/uL (140-450); Red Blood Cells 3.07 10^6/uL (4.5-5.90); Red Cell Distribution Width 14.5 % (11.8-14.3); White Blood Cell 8.8 10^3/uL (4.4-10.8)
[2020-09-16 06:02] LABS: % Iron Saturation 19.8 % (20-55)
[2020-09-16] MEDS: HYDROcodone-ACET 5/325MG TAB PO PRN ×3 (06:19→20:41)
[2020-09-16] MEDS: cefTRIAXone 1GM/50ML D5W 50 ML IV SCH (09:56)
[2020-09-16] MEDS: PANTOPRAZOLE 40 MG/10 ML VIAL INJ IV SCH (09:56)
[2020-09-16] MEDS: SODIUM CHLORIDE 0.9% 1,000 ML IV SCH (10:25)
[2020-09-16] MEDS: BELLADONNA ALKAL/OPIUM (16.2/30MG) RECT SUPP PR SCH ×2 (10:30→21:38)
[2020-09-16] MEDS ORDERED: LORazepam 0.5 MG TAB PO PRN (12:30)
[2020-09-16] MEDS: SODIUM FERR GLUC 62.5MG/5ML 125 MG in SODIUM CHL 0.9% 100 ML IV SCH (12:37)
[2020-09-16] MEDS: ATORVASTATIN 20 MG TAB PO SCH (21:37)
[2020-09-16] MEDS: LORazepam 0.5 MG TAB PO PRN (22:11)
[2020-09-17] MEDS: HYDROcodone-ACET 5/325MG TAB PO PRN (02:20)
[2020-09-17 05:00] VITALS: BP 103/67
[2020-09-17 08:31] LABS: Basophils # (auto) 0.1 10 ^3/uL (0-0.2); Lymphocytes # (auto) 2.6 10 ^3/uL (0.4-5.4); Monocytes # (auto) 0.8 10 ^3/uL (0-1.3); Neutrophils # (auto) 4.9 10 ^3/uL (1.6-8.6)
[2020-09-17 08:33] LABS: Basophils % (auto) 1.2 % (0.0-2.0); Eosinophils # (auto) 0.4 10 ^3/uL (0-0.8); Eosinophils % (auto) 4.4 % (0.0-7.0); Hematocrit 27.7 % (41.0-53.0); Hemoglobin 9.3 g/dL (13.5-17.5); Lymphocytes % (auto) 29.2 % (10.0-50.0); Mean Corpuscular Hemoglobin 26.9 pg (28.0-32.0); Mean Corpuscular Hgb Conc. 33.5 g/dL (32.0-36.0); Mean Corpuscular Volume 80.2 fL (80.0-100.0); Monocytes % (auto) 9.1 % (0.0-12.0); Neutrophils % (auto) 56.1 % (37.0-80.0); Platelet Count (auto) 424 10^3/uL (140-450); Red Blood Cells 3.45 10^6/uL (4.5-5.90); Red Cell Distribution Width 14.6 % (11.8-14.3); White Blood Cell 8.8 10^3/uL (4.4-10.8)
[2020-09-17 09:00] VITALS: BP 99/68
[2020-09-17] MEDS: BELLADONNA ALKAL/OPIUM (16.2/30MG) RECT SUPP PR SCH ×2 (09:58→21:48)
[2020-09-17] MEDS: cefTRIAXone 1GM/50ML D5W 50 ML IV SCH (09:58)
[2020-09-17 13:00] VITALS: BP 119/74
[2020-09-17] MEDS: SODIUM FERR GLUC 62.5MG/5ML 125 MG in SODIUM CHL 0.9% 100 ML IV SCH (13:18)
[2020-09-17] MEDS: HYDROcodone-ACET 10/325MG TAB PO PRN ×2 (15:40→20:34)
[2020-09-17 17:00] VITALS: BP 122/67
[2020-09-17] MEDS: ATORVASTATIN 20 MG TAB PO SCH (21:48)
[2020-09-17 22:00] VITALS: BP 122/71
[2020-09-18] VITALS (7 sets, daily range): BP systolic 103–115; BP diastolic 60–65
[2020-09-18] MEDS: HYDROcodone-ACET 10/325MG TAB PO PRN ×3 (03:58→18:45)
[2020-09-18 07:14] LABS: Basophils # (auto) 0.1 10 ^3/uL (0-0.2); Eosinophils # (auto) 0.4 10 ^3/uL (0-0.8); Hemoglobin 8.3 g/dL (13.5-17.5); Neutrophils # (auto) 5.3 10 ^3/uL (1.6-8.6); Red Cell Distribution Width 14.5 % (11.8-14.3)
[2020-09-18 07:17] LABS: Basophils % (auto) 1.1 % (0.0-2.0); Eosinophils % (auto) 4.4 % (0.0-7.0); Hematocrit 23.4 % (41.0-53.0); Lymphocytes # (auto) 2.5 10 ^3/uL (0.4-5.4); Lymphocytes % (auto) 26.9 % (10.0-50.0); Mean Corpuscular Hemoglobin 28.1 pg (28.0-32.0); Mean Corpuscular Hgb Conc. 35.6 g/dL (32.0-36.0); Mean Corpuscular Volume 79.1 fL (80.0-100.0); Monocytes # (auto) 0.9 10 ^3/uL (0-1.3); Monocytes % (auto) 10.1 % (0.0-12.0); Neutrophils % (auto) 57.5 % (37.0-80.0); Platelet Count (auto) 387 10^3/uL (140-450); Red Blood Cells 2.96 10^6/uL (4.5-5.90); White Blood Cell 9.3 10^3/uL (4.4-10.8)
[2020-09-18 07:38] LABS: Potassium 4.3 mmol/L (3.5-5.1)
[2020-09-18 07:40] LABS: BUN/Creatinine Ratio 21.5
[2020-09-18] MEDS ORDERED: FER325T PO ×2 (10:04)
[2020-09-18] MEDS: BELLADONNA ALKAL/OPIUM (16.2/30MG) RECT SUPP PR SCH ×2 (13:01→21:46)
[2020-09-18] MEDS: SODIUM FERR GLUC 62.5MG/5ML 125 MG in SODIUM CHL 0.9% 100 ML IV SCH (13:52)
[2020-09-18] MEDS ORDERED: LORazepam 0.5 MG TAB PO PRN (17:00)
[2020-09-18] MEDS ORDERED: TROLAMINE SALICYLATE 10% TOP CREAM TOP PRN (17:15)
[2020-09-18] MEDS: ATORVASTATIN 20 MG TAB PO SCH (21:46)
[2020-09-19] VITALS (7 sets, daily range): BP systolic 83–106; BP diastolic 55–103
[2020-09-19 06:52] LABS: Basophils # (auto) 0.1 10 ^3/uL (0-0.2); Basophils % (auto) 0.7 % (0.0-2.0); Eosinophils # (auto) 0.4 10 ^3/uL (0-0.8); Eosinophils % (auto) 3.6 % (0.0-7.0); Hematocrit 25.4 % (41.0-53.0); Hemoglobin 8.9 g/dL (13.5-17.5); Lymphocytes # (auto) 2.3 10 ^3/uL (0.4-5.4); Lymphocytes % (auto) 22.5 % (10.0-50.0); Mean Corpuscular Hemoglobin 27.8 pg (28.0-32.0); Mean Corpuscular Hgb Conc. 35.2 g/dL (32.0-36.0); Mean Corpuscular Volume 78.8 fL (80.0-100.0); Monocytes # (auto) 1.1 10 ^3/uL (0-1.3); Monocytes % (auto) 10.3 % (0.0-12.0); Neutrophils # (auto) 6.4 10 ^3/uL (1.6-8.6); Neutrophils % (auto) 62.9 % (37.0-80.0); Platelet Count (auto) 395 10^3/uL (140-450); Red Blood Cells 3.22 10^6/uL (4.5-5.90); Red Cell Distribution Width 14.8 % (11.8-14.3); White Blood Cell 10.2 10^3/uL (4.4-10.8)
[2020-09-19] MEDS: HYDROcodone-ACET 10/325MG TAB PO PRN ×4 (06:58→22:10)
[2020-09-19] MEDS: BELLADONNA ALKAL/OPIUM (16.2/30MG) RECT SUPP PR SCH ×2 (11:12→22:01)
[2020-09-19] MEDS ORDERED: ASPirin-EC 81 mg tab PO ONE (12:00)
[2020-09-19] MEDS: SODIUM FERR GLUC 62.5MG/5ML 125 MG in SODIUM CHL 0.9% 100 ML IV SCH (12:06)
[2020-09-19] MEDS ORDERED: FINASTERIDE 5 MG TAB PO ONE (13:45)
[2020-09-19] MEDS ORDERED: TAMSULOSIN HYDROCHLORIDE 0.4 MG CAP PO SCH (18:00)
[2020-09-19] MEDS: ATORVASTATIN 20 MG TAB PO SCH (22:02)
[2020-09-20 05:00] VITALS: BP 102/63
[2020-09-20 06:15] LABS: Basophils # (auto) 0.1 10 ^3/uL (0-0.2); Basophils % (auto) 0.7 % (0.0-2.0); Eosinophils # (auto) 0.4 10 ^3/uL (0-0.8); Hemoglobin 8.8 g/dL (13.5-17.5); Lymphocytes # (auto) 2.5 10 ^3/uL (0.4-5.4); Lymphocytes % (auto) 26.5 % (10.0-50.0); Mean Corpuscular Hemoglobin 28.2 pg (28.0-32.0); Mean Corpuscular Hgb Conc. 35.4 g/dL (32.0-36.0); Mean Corpuscular Volume 79.6 fL (80.0-100.0); Monocytes % (auto) 10.4 % (0.0-12.0); Neutrophils # (auto) 5.5 10 ^3/uL (1.6-8.6); Neutrophils % (auto) 58.4 % (37.0-80.0); Nucleated Red Blood Cells % 0.2 %; Platelet Count (auto) 406 10^3/uL (140-450); Red Blood Cells 3.13 10^6/uL (4.5-5.90); White Blood Cell 9.4 10^3/uL (4.4-10.8)
[2020-09-20 09:00] VITALS: BP 96/64
[2020-09-20] MEDS ORDERED: FINASTERIDE 5 MG TAB PO SCH (10:00)
[2020-09-20] MEDS ORDERED: ASPirin-EC 81 mg tab PO SCH (10:00)
[2020-09-20] MEDS: SODIUM FERR GLUC 62.5MG/5ML 125 MG in SODIUM CHL 0.9% 100 ML IV SCH ×2 (12:33→12:49)
[2020-09-20 13:00] VITALS: BP 106/52
[2020-09-20] MEDS ORDERED: FIN5T PO ×2 (13:01)
[2020-09-20] MEDS ORDERED: ASPI-543 PO ×2 (13:01)
[2020-09-20] MEDS ORDERED: TAM04C PO ×2 (13:01)
[2020-09-20 16:45] VITALS: BP 106/52
== END 2020-09-20 17:35 | disposition home health service (06) | DRG 726 ==
LOC: ER 08:36 → TELE 15:31 → TELE-CENTR 19:50 → DOU IN ICU 09-14 15:10 → TELE-CENTR 09-16 14:44 → CENTRAL 09-18 09:33
PROVIDERS: ADMIT Family Medicine; ATTEND Internal Medicine
DX: N40.1 Benign prostatic hyperplasia with lower urinary tract symptoms (principal); N17.9 Acute kidney failure, unspecified; E87.1 Hypo-osmolality and hyponatremia; D62 Acute posthemorrhagic anemia; R04.2 Hemoptysis; J98.11 Atelectasis; E11.65 Type 2 diabetes mellitus with hyperglycemia; I12.9 Hypertensive chronic kidney disease with stage 1 through stage 4 chronic kidney disease, or unspecified chronic kidney disease; Z20.822 Contact with and (suspected) exposure to COVID-19; N18.31 Chronic kidney disease, stage 3a; I49.3 Ventricular premature depolarization; D64.9 Anemia, unspecified; E87.6 Hypokalemia; I25.10 Atherosclerotic heart disease of native coronary artery without angina pectoris; M81.0 Age-related osteoporosis without current pathological fracture; E11.22 Type 2 diabetes mellitus with diabetic chronic kidney disease; E78.5 Hyperlipidemia, unspecified; F03.90 Unspecified dementia, unspecified severity, without behavioral disturbance, psychotic disturbance, mood disturbance, and anxiety; K59.09 Other constipation; R33.8 Other retention of urine; M17.10 Unilateral primary osteoarthritis, unspecified knee; G89.29 Other chronic pain; N18.32 Chronic kidney disease, stage 3b; R04.0 Epistaxis; Z79.4 Long term (current) use of insulin; Z79.82 Long term (current) use of aspirin; Z80.0 Family history of malignant neoplasm of digestive organs; Z80.42 Family history of malignant neoplasm of prostate; Z85.038 Personal history of other malignant neoplasm of large intestine; Z85.46 Personal history of malignant neoplasm of prostate; Z87.891 Personal history of nicotine dependence; Z90.49 Acquired absence of other specified parts of digestive tract; Z98.61 Coronary angioplasty status; Z79.899 Other long term (current) drug therapy
CPT/HCPCS: 36415; 51702; 71250; 73700; 74176; 76856; 80048; 80053; 81001; 82270; 83036; 83540; 83550; 83605; 83735; 84443; 85014; 85018; 85025; 85610; 85730; 86850; 86900; 86901; 87081; 87086; 87426; 93005; 93971; 96361; 96365; 97110; 97116; 97530; C9113; G0378; J0696; J2405

== ENCOUNTER 2020-10-03 08:48 | Emergency (ER) | payer OTHER ==
[~2020-10-03] VITALS: Ht 182.9 cm; Wt 72.6 kg
[~2020-10-03 08:48] MED LIST changes: +ASPI-543 PO; -CLOP75TA28 PO; +FER325T PO; +FIN5T PO; -HYDR12.55 PO; -MET50T PO; +TAM04C PO
[2020-10-03] MEDS ORDERED: ONDANSETRON HCL 4 MG/2 ML VIAL IV ONE (09:30)
[2020-10-03] MEDS ORDERED: MORPHINE SULFATE INJECTION 2 MG/ML SYRG IV ONE (09:30)
[2020-10-03 10:17] LABS: Urine Bacteria FEW /hpf (None Seen); Urine Blood 2+ /uL (Negative); Urine Specific Gravity 1.013 (1.001-1.035); Urine WBC 1368 /hpf (0 - 3); Urine WBC Clumps PRESENT /hpf (None Seen)
[2020-10-03 10:19] LABS: Basophils # (auto) 0.1 10 ^3/uL (0-0.2); Eosinophils # (auto) 0.2 10 ^3/uL (0-0.8); Eosinophils % (auto) 1.6 % (0.0-7.0); Hemoglobin 9.8 g/dL (13.5-17.5); Mean Corpuscular Hemoglobin 26.8 pg (28.0-32.0)
[2020-10-03 10:20] LABS: Basophils % (auto) 0.7 % (0.0-2.0); Hematocrit 28.8 % (41.0-53.0); Lymphocytes # (auto) 2.3 10 ^3/uL (0.4-5.4); Lymphocytes % (auto) 17.2 % (10.0-50.0); Mean Corpuscular Volume 78.9 fL (80.0-100.0); Monocytes # (auto) 1.2 10 ^3/uL (0-1.3); Monocytes % (auto) 8.8 % (0.0-12.0); Neutrophils # (auto) 9.4 10 ^3/uL (1.6-8.6); Neutrophils % (auto) 71.7 % (37.0-80.0); Red Blood Cells 3.64 10^6/uL (4.5-5.90); Red Cell Distribution Width 14.8 % (11.8-14.3); White Blood Cell 13.1 10^3/uL (4.4-10.8)
[2020-10-03 10:24] LABS: Albumin 2.7 g/dL (3.4-5.0); Anion Gap 8 (5-15); Blood Urea Nitrogen 21 mg/dL (7-18); Calcium 8.9 mg/dL (8.5-10.1); Carbon Dioxide 21 mmol/L (21-32); Chloride 102 mmol/L (98-107); Glucose 97 mg/dL (74-106); Potassium 4.1 mmol/L (3.5-5.1); Sodium 131 mmol/L (136-145)
[2020-10-03 10:29] LABS: Alanine Aminotransferase 24 U/L (16-61); Alkaline Phosphatase 126 U/L (45-117); Aspartate Aminotransferase 17 U/L (15-37); BUN/Creatinine Ratio 14.8; Bilirubin, Total 0.5 mg/dL (0.2-1.0); GFR African American 61 mL/min; GFR Non-African American 50 mL/min; Total Protein 6.1 g/dL (6.4-8.2)
[2020-10-03 12:00] VITALS: BP 109/62
[2020-10-03] MEDS ORDERED: cefTRIAXone 1GM/50ML D5W 50 ML IV ONE (12:00)
[2020-10-03] MEDS ORDERED: HYDROcodone-ACET 5/325MG TAB PO ONE (12:30)
== END 2020-10-03 13:26 | disposition home or self-care (01) ==
LOC: ER 08:48
DX: N40.1 Benign prostatic hyperplasia with lower urinary tract symptoms (principal); N39.0 Urinary tract infection, site not specified; E46 Unspecified protein-calorie malnutrition; R07.89 Other chest pain; E78.00 Pure hypercholesterolemia, unspecified; I25.2 Old myocardial infarction; Z86.73 Personal history of transient ischemic attack (TIA), and cerebral infarction without residual deficits; Z90.89 Acquired absence of other organs; Z98.61 Coronary angioplasty status
CPT/HCPCS: 36415; 71045; 74176; 80053; 81001; 84484; 85025; 85049; 96365; 96375; 99285; J0696; J2270; J2405

== ENCOUNTER 2020-10-08 01:39 | Inpatient (IN) | payer OTHER ==
[~2020-10-08] VITALS: Ht 182.9 cm; Wt 77.0 kg
[2020-10-08 03:06] LABS: Basophils # (auto) 0.1 10 ^3/uL (0-0.2); Basophils % (auto) 0.7 % (0.0-2.0); Eosinophils # (auto) 0.1 10 ^3/uL (0-0.8); Hemoglobin 10.1 g/dL (13.5-17.5); Lymphocytes # (auto) 1.8 10 ^3/uL (0.4-5.4); Monocytes # (auto) 0.8 10 ^3/uL (0-1.3)
[2020-10-08 03:09] LABS: Eosinophils % (auto) 0.6 % (0.0-7.0); Lymphocytes % (auto) 15.1 % (10.0-50.0); Mean Corpuscular Hemoglobin 26.2 pg (28.0-32.0); Mean Corpuscular Hgb Conc. 33.8 g/dL (32.0-36.0); Mean Corpuscular Volume 77.4 fL (80.0-100.0); Monocytes % (auto) 7.1 % (0.0-12.0); Neutrophils # (auto) 9.1 10 ^3/uL (1.6-8.6); Neutrophils % (auto) 76.5 % (37.0-80.0); Red Blood Cells 3.87 10^6/uL (4.5-5.90); Red Cell Distribution Width 15.1 % (11.8-14.3); White Blood Cell 11.8 10^3/uL (4.4-10.8)
[2020-10-08 03:22] LABS: INR 1.08 (0.9-1.15); Partial Thromboplastin Time 25.6 sec (23.0-31.2)
[2020-10-08 03:40] LABS: Albumin 2.7 g/dL (3.4-5.0); BUN/Creatinine Ratio 10.3; Calcium 9.1 mg/dL (8.5-10.1); Magnesium 2.6 mg/dL (1.6-2.6); Potassium 4.5 mmol/L (3.5-5.1)
[2020-10-08 03:42] LABS: Bilirubin, Total 0.3 mg/dL (0.2-1.0); Total Protein 6.4 g/dL (6.4-8.2)
[2020-10-08] MEDS ORDERED: PANTOPRAZOLE 40 MG/10 ML VIAL INJ IV ONE (03:45)
[2020-10-08] MEDS ORDERED: SODIUM CHLORIDE 0.9% 500 ML IV ONE (04:15)
[2020-10-08] MEDS ORDERED: ONDANSETRON HCL 4 MG/2 ML VIAL IV ONE (05:30)
[2020-10-08 06:18] LABS: Urine Amorphous Crystal FEW /hpf (None Seen); Urine Bacteria MOD /hpf (None Seen); Urine Blood Negative /uL (Negative); Urine Mucus FEW (None Seen); Urine Specific Gravity 1.009 (1.001-1.035); Urine WBC 20 /hpf (0 - 3)
[2020-10-08] MEDS ORDERED: NITROGLYCERIN 0.4 MG SL TAB SL PRN (07:00)
[2020-10-08] MEDS ORDERED: MORPHINE SULF INJ 2 MG/ML SYRINGE 1ML IV PRN (07:00)
[2020-10-08] MEDS: SODIUM CHLORIDE 0.9% 1,000 ML IV SCH (07:04)
[2020-10-08] MEDS: ONDANSETRON HCL 4 MG/2 ML VIAL IV PRN (07:46)
[2020-10-08] MEDS: PANTOPRAZOLE 40 MG/10 ML VIAL INJ IV SCH ×2 (09:50→21:55)
[2020-10-08] MEDS ORDERED: SENNA 8.6 MG TAB PO ONE (12:30)
[2020-10-08] MEDS ORDERED: POLYETHYLENE GLYCOL 17 GM PWDR PO ONE (12:30)
[2020-10-08] MEDS ORDERED: CEFTRIAXONE SODIUM 2 GM in D5W 5% 50 ML IV ONE (12:30)
[2020-10-08 13:00] VITALS: BP 137/82
[2020-10-08] MEDS: traMADol HCL 50 MG TAB PO PRN (13:49)
[2020-10-08 14:02] VITALS: BP 132/82
[2020-10-08] MEDS ORDERED: ENOXAPARIN SOD 40 MG/0.4 ML SYRINGE SC ONE (14:30)
[2020-10-08 16:40] VITALS: BP 116/65
[2020-10-08] MEDS: SUCRALFATE 1 GM/10 ML ORAL SUSP PO SCH ×2 (17:00→21:55)
[2020-10-08] MEDS ORDERED: ALPRAZolam 0.25 MG TAB PO ONE (18:00)
[2020-10-08] MEDS: DOCUSATE SOD 100 MG CAP PO SCH (21:55)
[2020-10-08 22:00] VITALS: BP 121/71
[2020-10-09] MEDS: SODIUM CHLORIDE 0.9% 1,000 ML IV SCH ×2 (02:16→10:00)
[2020-10-09 04:55] LABS: Basophils # (auto) 0.1 10 ^3/uL (0-0.2); Basophils % (auto) 0.7 % (0.0-2.0); Eosinophils # (auto) 0.4 10 ^3/uL (0-0.8)
[2020-10-09 04:57] LABS: Eosinophils % (auto) 3.1 % (0.0-7.0); Hematocrit 28.3 % (41.0-53.0); Hemoglobin 9.8 g/dL (13.5-17.5); Lymphocytes # (auto) 2.9 10 ^3/uL (0.4-5.4); Lymphocytes % (auto) 25.5 % (10.0-50.0); Mean Corpuscular Hemoglobin 26.8 pg (28.0-32.0); Mean Corpuscular Hgb Conc. 34.5 g/dL (32.0-36.0); Mean Corpuscular Volume 77.8 fL (80.0-100.0); Monocytes # (auto) 0.7 10 ^3/uL (0-1.3); Monocytes % (auto) 6.4 % (0.0-12.0); Neutrophils # (auto) 7.4 10 ^3/uL (1.6-8.6); Neutrophils % (auto) 64.3 % (37.0-80.0); Red Blood Cells 3.64 10^6/uL (4.5-5.90); White Blood Cell 11.4 10^3/uL (4.4-10.8)
[2020-10-09 05:15] LABS: Albumin 2.7 g/dL (3.4-5.0); Calcium 8.9 mg/dL (8.5-10.1); Potassium 4.3 mmol/L (3.5-5.1)
[2020-10-09 05:17] VITALS: BP 116/71
[2020-10-09 05:19] LABS: BUN/Creatinine Ratio 9.5; Bilirubin, Total 0.3 mg/dL (0.2-1.0); Total Protein 5.8 g/dL (6.4-8.2)
[2020-10-09] MEDS: SUCRALFATE 1 GM/10 ML ORAL SUSP PO SCH ×4 (06:30→21:29)
[2020-10-09] MEDS ORDERED: LIDOCAINE VISCOUS 2% 15ML UD ONE (08:22)
[2020-10-09] MEDS ORDERED: SODIUM CHLORIDE LOCK 10 ML ONE (08:22)
[2020-10-09] MEDS ORDERED: diphenhdrAMINE HCL 50 MG/1 ML VL ONE (08:22)
[2020-10-09] MEDS: cefTRIAXone 1GM/50ML D5W 50 ML IV SCH (08:47)
[2020-10-09 09:00] VITALS: BP 131/78
[2020-10-09] MEDS: PANTOPRAZOLE 40 MG/10 ML VIAL INJ IV SCH ×2 (09:45→21:29)
[2020-10-09] MEDS: DOCUSATE SOD 100 MG CAP PO SCH ×2 (10:00→21:29)
[2020-10-09] MEDS: ENOXAPARIN SOD 40 MG/0.4 ML SYRINGE SC SCH (10:00)
[2020-10-09 13:00] VITALS: BP 134/79
[2020-10-09] MEDS: fentaNYL CITRATE 100 MCG/2 ML VL ONE ×3 (14:11→14:17)
[2020-10-09] MEDS: MIDAZOLAM HCL 5 MG/ML-1ML VIAL ONE ×3 (14:11→14:17)
[2020-10-09 16:50] VITALS: BP 142/74
[2020-10-09] MEDS: traMADol HCL 50 MG TAB PO PRN (20:38)
[2020-10-09] MEDS: ALPRAZolam 0.25 MG TAB PO PRN (21:30)
[2020-10-09 22:00] VITALS: BP 130/76
[2020-10-09] MEDS: MORPHINE SULF INJ 2 MG/ML SYRINGE 1ML IV PRN (22:44)
[2020-10-10] MEDS: SODIUM CHLORIDE 0.9% 1,000 ML IV SCH ×2 (00:24→12:20)
[2020-10-10 05:00] VITALS: BP 109/60
[2020-10-10 05:35] LABS: Hematocrit 26.5 % (41.0-53.0); Hemoglobin 8.9 g/dL (13.5-17.5)
[2020-10-10] MEDS: SUCRALFATE 1 GM/10 ML ORAL SUSP PO SCH ×4 (06:21→21:38)
[2020-10-10] MEDS: MORPHINE SULF INJ 2 MG/ML SYRINGE 1ML IV PRN (06:43)
[2020-10-10 09:00] VITALS: BP 133/73
[2020-10-10] MEDS: cefTRIAXone 1GM/50ML D5W 50 ML IV SCH (09:30)
[2020-10-10] MEDS: ENOXAPARIN SOD 40 MG/0.4 ML SYRINGE SC SCH (09:30)
[2020-10-10] MEDS: DOCUSATE SOD 100 MG CAP PO SCH ×2 (09:30→21:38)
[2020-10-10] MEDS: PANTOPRAZOLE 40 MG/10 ML VIAL INJ IV SCH ×2 (09:30→21:38)
[2020-10-10 13:00] VITALS: BP 119/69
[2020-10-10] MEDS: traMADol HCL 50 MG TAB PO PRN (15:40)
[2020-10-10 17:00] VITALS: BP 140/85
[2020-10-10] MEDS: ONDANSETRON HCL 4 MG/2 ML VIAL IV PRN (19:43)
[2020-10-10 22:00] VITALS: BP 147/99
[2020-10-11] MEDS: traMADol HCL 50 MG TAB PO PRN (02:52)
[2020-10-11] MEDS: SODIUM CHLORIDE 0.9% 1,000 ML IV SCH ×2 (02:52→17:35)
[2020-10-11 05:00] VITALS: BP 121/75
[2020-10-11] MEDS: MORPHINE SULF INJ 2 MG/ML SYRINGE 1ML IV PRN (06:00)
[2020-10-11] MEDS: SUCRALFATE 1 GM/10 ML ORAL SUSP PO SCH ×4 (06:01→21:48)
[2020-10-11 06:09] LABS: Hematocrit 27.5 % (41.0-53.0); Hemoglobin 9.5 g/dL (13.5-17.5)
[2020-10-11 09:00] VITALS: BP 147/90
[2020-10-11] MEDS: cefTRIAXone 1GM/50ML D5W 50 ML IV SCH (10:28)
[2020-10-11] MEDS: ENOXAPARIN SOD 40 MG/0.4 ML SYRINGE SC SCH (10:28)
[2020-10-11] MEDS: PANTOPRAZOLE 40 MG/10 ML VIAL INJ IV SCH ×2 (10:28→21:48)
[2020-10-11] MEDS: ALPRAZolam 0.25 MG TAB PO PRN (10:28)
[2020-10-11] MEDS: DOCUSATE SOD 100 MG CAP PO SCH ×2 (10:28→21:49)
[2020-10-11 13:00] VITALS: BP 146/90
[2020-10-11 16:45] VITALS: BP 111/63
[2020-10-11] MEDS ORDERED: ERTAPENEM SOD INJ 1 GM in SODIUM CHL 0.9% 50 ML IV ONE (18:00)
[2020-10-11] MEDS: CEFEPIME 2 GM in SODIUM CHL 0.9% 50 ML IV SCH (21:48)
[2020-10-11 22:00] VITALS: BP 127/70
[2020-10-12] MEDS: MORPHINE SULF INJ 2 MG/ML SYRINGE 1ML IV PRN (01:25)
[2020-10-12 05:00] VITALS: BP 137/76
[2020-10-12] MEDS: traMADol HCL 50 MG TAB PO PRN ×2 (05:02→20:13)
[2020-10-12] MEDS: ALPRAZolam 0.25 MG TAB PO PRN (05:02)
[2020-10-12] MEDS: SUCRALFATE 1 GM/10 ML ORAL SUSP PO SCH ×4 (06:53→22:09)
[2020-10-12] MEDS: PANTOPRAZOLE 40 MG/10 ML VIAL INJ IV SCH ×2 (08:59→22:09)
[2020-10-12] MEDS: DOCUSATE SOD 100 MG CAP PO SCH ×2 (08:59→22:09)
[2020-10-12] MEDS: ENOXAPARIN SOD 40 MG/0.4 ML SYRINGE SC SCH (08:59)
[2020-10-12 09:00] VITALS: BP 130/78
[2020-10-12] MEDS: ERTAPENEM SOD INJ 1 GM in SODIUM CHL 0.9% 50 ML IV SCH (09:04)
[2020-10-12] MEDS: CEFEPIME 2 GM in SODIUM CHL 0.9% 50 ML IV SCH ×2 (10:44→22:09)
[2020-10-12 12:56] VITALS: BP 120/73
[2020-10-12 17:00] VITALS: BP 145/91
[2020-10-12 22:01] VITALS: BP 142/79
[2020-10-13] MEDS: MORPHINE SULF INJ 2 MG/ML SYRINGE 1ML IV PRN (03:11)
[2020-10-13 05:35] VITALS: BP 135/88
[2020-10-13] MEDS: SUCRALFATE 1 GM/10 ML ORAL SUSP PO SCH ×4 (06:48→22:18)
[2020-10-13 06:49] LABS: Basophils # (auto) 0.2 10 ^3/uL (0-0.2); Monocytes # (auto) 0.8 10 ^3/uL (0-1.3)
[2020-10-13 06:51] LABS: Basophils % (auto) 2.1 % (0.0-2.0); Eosinophils # (auto) 0.4 10 ^3/uL (0-0.8); Eosinophils % (auto) 3.1 % (0.0-7.0); Hematocrit 29.3 % (41.0-53.0); Hemoglobin 9.9 g/dL (13.5-17.5); Lymphocytes # (auto) 3.1 10 ^3/uL (0.4-5.4); Lymphocytes % (auto) 26.5 % (10.0-50.0); Mean Corpuscular Hemoglobin 26.1 pg (28.0-32.0); Mean Corpuscular Hgb Conc. 33.7 g/dL (32.0-36.0); Mean Corpuscular Volume 77.5 fL (80.0-100.0); Neutrophils # (auto) 7.1 10 ^3/uL (1.6-8.6); Neutrophils % (auto) 61.3 % (37.0-80.0); Red Blood Cells 3.78 10^6/uL (4.5-5.90); Red Cell Distribution Width 15.4 % (11.8-14.3); White Blood Cell 11.5 10^3/uL (4.4-10.8)
[2020-10-13 07:07] LABS: Albumin 2.3 g/dL (3.4-5.0); Calcium 8.3 mg/dL (8.5-10.1); Potassium 4.1 mmol/L (3.5-5.1)
[2020-10-13 07:10] LABS: BUN/Creatinine Ratio 12.1; Bilirubin, Total 0.4 mg/dL (0.2-1.0); Total Protein 5.7 g/dL (6.4-8.2)
[2020-10-13 09:00] VITALS: BP 138/84
[2020-10-13] MEDS: DOCUSATE SOD 100 MG CAP PO SCH ×2 (10:16→22:18)
[2020-10-13] MEDS: ERTAPENEM SOD INJ 1 GM in SODIUM CHL 0.9% 50 ML IV SCH (10:16)
[2020-10-13] MEDS: ENOXAPARIN SOD 40 MG/0.4 ML SYRINGE SC SCH (10:16)
[2020-10-13] MEDS: PANTOPRAZOLE 40 MG/10 ML VIAL INJ IV SCH ×2 (10:16→22:18)
[2020-10-13] MEDS: CEFEPIME 2 GM in SODIUM CHL 0.9% 50 ML IV SCH ×2 (12:11→22:18)
[2020-10-13 13:00] VITALS: BP 142/77
[2020-10-13] MEDS ORDERED: TROLAMINE SALICYLATE 10% TOP CREAM TOP PRN ×2 (13:15→13:45)
[2020-10-13 17:00] VITALS: BP 130/77
[2020-10-13] MEDS: ALPRAZolam 0.25 MG TAB PO PRN (18:00)
[2020-10-13] MEDS: traMADol HCL 50 MG TAB PO PRN (21:02)
[2020-10-13 22:00] VITALS: BP 126/77
[2020-10-14 05:00] VITALS: BP 108/62
[2020-10-14] MEDS: SUCRALFATE 1 GM/10 ML ORAL SUSP PO SCH ×4 (06:47→22:05)
[2020-10-14 09:00] VITALS: BP 109/74
[2020-10-14] MEDS: DOCUSATE SOD 100 MG CAP PO SCH ×2 (10:07→22:06)
[2020-10-14] MEDS: ERTAPENEM SOD INJ 1 GM in SODIUM CHL 0.9% 50 ML IV SCH (10:07)
[2020-10-14] MEDS: CEFEPIME 2 GM in SODIUM CHL 0.9% 50 ML IV SCH ×2 (10:07→22:05)
[2020-10-14] MEDS: ENOXAPARIN SOD 40 MG/0.4 ML SYRINGE SC SCH (10:07)
[2020-10-14] MEDS: PANTOPRAZOLE 40 MG/10 ML VIAL INJ IV SCH ×2 (10:07→22:05)
[2020-10-14 13:00] VITALS: BP 105/76
[2020-10-14] MEDS: MORPHINE SULF INJ 2 MG/ML SYRINGE 1ML IV PRN (13:34)
[2020-10-14] MEDS: ONDANSETRON HCL 4 MG/2 ML VIAL IV PRN (13:34)
[2020-10-14 17:00] VITALS: BP 118/69
[2020-10-14] MEDS: ALPRAZolam 0.25 MG TAB PO PRN (19:40)
[2020-10-14] MEDS: traMADol HCL 50 MG TAB PO PRN (19:40)
[2020-10-14 23:24] VITALS: BP 122/74
[2020-10-15] MEDS: traMADol HCL 50 MG TAB PO PRN (03:20)
[2020-10-15] MEDS: MORPHINE SULF INJ 2 MG/ML SYRINGE 1ML IV PRN (05:13)
[2020-10-15 05:21] VITALS: BP 113/64
[2020-10-15] MEDS: SUCRALFATE 1 GM/10 ML ORAL SUSP PO SCH ×4 (06:41→22:06)
[2020-10-15] MEDS ORDERED: PANT40TA2 PO (07:45)
[2020-10-15] MEDS ORDERED: SUCR1SUS10 PO (07:45)
[2020-10-15] MEDS ORDERED: POLY33504 PO (07:45)
[2020-10-15 09:00] VITALS: BP 107/60
[2020-10-15] MEDS: CEFEPIME 2 GM in SODIUM CHL 0.9% 50 ML IV SCH ×2 (09:17→22:06)
[2020-10-15] MEDS: ERTAPENEM SOD INJ 1 GM in SODIUM CHL 0.9% 50 ML IV SCH (09:17)
[2020-10-15] MEDS: PANTOPRAZOLE 40 MG/10 ML VIAL INJ IV SCH ×2 (09:18→22:06)
[2020-10-15] MEDS: ENOXAPARIN SOD 40 MG/0.4 ML SYRINGE SC SCH (09:19)
[2020-10-15] MEDS: DOCUSATE SOD 100 MG CAP PO SCH ×2 (09:19→22:06)
[2020-10-15 13:00] VITALS: BP 102/66
[2020-10-15 17:00] VITALS: BP 113/59
[2020-10-15 22:00] VITALS: BP 122/76
[2020-10-15] MEDS: ALPRAZolam 0.25 MG TAB PO PRN (22:07)
[2020-10-16] MEDS: traMADol HCL 50 MG TAB PO PRN (03:59)
[2020-10-16 05:00] VITALS: BP 114/78
[2020-10-16] MEDS: SUCRALFATE 1 GM/10 ML ORAL SUSP PO SCH ×4 (06:27→21:06)
[2020-10-16] MEDS: MORPHINE SULF INJ 2 MG/ML SYRINGE 1ML IV PRN (07:45)
[2020-10-16 09:00] VITALS: BP 115/66
[2020-10-16] MEDS: ERTAPENEM SOD INJ 1 GM in SODIUM CHL 0.9% 50 ML IV SCH (09:07)
[2020-10-16] MEDS: DOCUSATE SOD 100 MG CAP PO SCH ×2 (09:08→21:06)
[2020-10-16] MEDS: ENOXAPARIN SOD 40 MG/0.4 ML SYRINGE SC SCH (09:08)
[2020-10-16] MEDS: PANTOPRAZOLE 40 MG/10 ML VIAL INJ IV SCH (09:08)
[2020-10-16 09:37] LABS: Hematocrit 33.5 % (41.0-53.0); Red Cell Distribution Width 15.7 % (11.8-14.3)
[2020-10-16 09:38] LABS: Basophils # (auto) 0.1 10 ^3/uL (0-0.2); Eosinophils # (auto) 0.3 10 ^3/uL (0-0.8); Lymphocytes # (auto) 3.4 10 ^3/uL (0.4-5.4); Lymphocytes % (auto) 25.8 % (10.0-50.0); Mean Corpuscular Hemoglobin 25.6 pg (28.0-32.0); Mean Corpuscular Hgb Conc. 32.9 g/dL (32.0-36.0); Mean Corpuscular Volume 77.7 fL (80.0-100.0); Monocytes # (auto) 0.9 10 ^3/uL (0-1.3); Monocytes % (auto) 6.5 % (0.0-12.0); Neutrophils # (auto) 8.6 10 ^3/uL (1.6-8.6); Neutrophils % (auto) 64.7 % (37.0-80.0); White Blood Cell 13.2 10^3/uL (4.4-10.8)
[2020-10-16 09:48] LABS: Urine Bacteria NONE SEEN /hpf (None Seen); Urine Blood Negative /uL (Negative); Urine Specific Gravity 1.008 (1.001-1.035); Urine WBC 2 /hpf (0 - 3)
[2020-10-16] MEDS: CEFEPIME 2 GM in SODIUM CHL 0.9% 50 ML IV SCH ×2 (10:00→21:06)
[2020-10-16 10:42] LABS: Potassium 4.1 mmol/L (3.5-5.1)
[2020-10-16 10:59] LABS: BUN/Creatinine Ratio 20.7; Calcium 9.6 mg/dL (8.5-10.1)
[2020-10-16 13:00] VITALS: BP 99/61
[2020-10-16] MEDS ORDERED: FINASTERIDE 5 MG TAB PO ONE (14:30)
[2020-10-16] MEDS ORDERED: MAGNESIUM CITRATE SOLUTION 300 ML BTL PO ONE (15:30)
[2020-10-16 16:48] LABS: Urine Bacteria NONE SEEN /hpf (None Seen); Urine Blood 3+ /uL (Negative); Urine Specific Gravity 1.015 (1.001-1.035); Urine WBC 4 /hpf (0 - 3)
[2020-10-16 17:00] VITALS: BP 102/63
[2020-10-16] MEDS: TAMSULOSIN HYDROCHLORIDE 0.4 MG CAP PO SCH (18:36)
[2020-10-16] MEDS: PANTOPRAZOLE 40 MG TAB PO SCH (21:07)
[2020-10-16] MEDS: ALPRAZolam 0.25 MG TAB PO PRN (21:14)
[2020-10-17 05:32] LABS: Basophils # (auto) 0.1 10 ^3/uL (0-0.2); Eosinophils # (auto) 0.3 10 ^3/uL (0-0.8); Eosinophils % (auto) 2.5 % (0.0-7.0); Neutrophils # (auto) 5.9 10 ^3/uL (1.6-8.6)
[2020-10-17 05:34] LABS: Basophils % (auto) 1.4 % (0.0-2.0); Hematocrit 30.9 % (41.0-53.0); Hemoglobin 10.6 g/dL (13.5-17.5); Lymphocytes # (auto) 3.4 10 ^3/uL (0.4-5.4); Lymphocytes % (auto) 32.5 % (10.0-50.0); Mean Corpuscular Hemoglobin 26.3 pg (28.0-32.0); Mean Corpuscular Hgb Conc. 34.3 g/dL (32.0-36.0); Mean Corpuscular Volume 76.7 fL (80.0-100.0); Monocytes # (auto) 0.7 10 ^3/uL (0-1.3); Monocytes % (auto) 6.8 % (0.0-12.0); Neutrophils % (auto) 56.8 % (37.0-80.0); Red Blood Cells 4.02 10^6/uL (4.5-5.90); Red Cell Distribution Width 15.8 % (11.8-14.3); White Blood Cell 10.4 10^3/uL (4.4-10.8)
[2020-10-17] MEDS: SUCRALFATE 1 GM/10 ML ORAL SUSP PO SCH ×4 (06:09→21:02)
[2020-10-17 09:00] VITALS: BP 117/63
[2020-10-17] MEDS: ERTAPENEM SOD INJ 1 GM in SODIUM CHL 0.9% 50 ML IV SCH (09:15)
[2020-10-17] MEDS: PANTOPRAZOLE 40 MG TAB PO SCH ×2 (09:16→21:02)
[2020-10-17] MEDS: ENOXAPARIN SOD 40 MG/0.4 ML SYRINGE SC SCH (09:16)
[2020-10-17] MEDS: FINASTERIDE 5 MG TAB PO SCH (09:16)
[2020-10-17] MEDS: DOCUSATE SOD 100 MG CAP PO SCH ×2 (09:16→21:02)
[2020-10-17] MEDS: CEFEPIME 2 GM in SODIUM CHL 0.9% 50 ML IV SCH ×2 (10:11→21:02)
[2020-10-17 13:00] VITALS: BP 101/64
[2020-10-17 16:54] VITALS: BP 100/60
[2020-10-17] MEDS: TAMSULOSIN HYDROCHLORIDE 0.4 MG CAP PO SCH (17:30)
[2020-10-17] MEDS: ALPRAZolam 0.25 MG TAB PO PRN (17:31)
[2020-10-17] MEDS: traMADol HCL 50 MG TAB PO PRN (19:32)
[2020-10-17 22:00] VITALS: BP 117/76
[2020-10-18 05:00] VITALS: BP 89/52
[2020-10-18] MEDS: SUCRALFATE 1 GM/10 ML ORAL SUSP PO SCH (06:27)
[2020-10-18 09:00] VITALS: BP 100/64
[2020-10-18] MEDS: ERTAPENEM SOD INJ 1 GM in SODIUM CHL 0.9% 50 ML IV SCH (09:00)
[2020-10-18] MEDS: DOCUSATE SOD 100 MG CAP PO SCH (09:50)
[2020-10-18] MEDS: PANTOPRAZOLE 40 MG TAB PO SCH (09:50)
[2020-10-18] MEDS: ENOXAPARIN SOD 40 MG/0.4 ML SYRINGE SC SCH (09:50)
[2020-10-18] MEDS: CEFEPIME 2 GM in SODIUM CHL 0.9% 50 ML IV SCH (09:50)
[2020-10-18] MEDS: FINASTERIDE 5 MG TAB PO SCH (09:50)
== END 2020-10-18 10:36 | disposition home health service (06) | DRG 368 ==
LOC: EDBD 01:39 → ER 01:44 → TELE 06:47 → TELE-WESTW 11:47
PROVIDERS: ADMIT Nurse Practitioner; ATTEND Internal Medicine
PROC: 0DB98ZX Excision of Duodenum, Via Natural or Artificial Opening Endoscopic, Diagnostic (ICD-10-PCS; 2020-10-09)
PROC: 0DB38ZX Excision of Lower Esophagus, Via Natural or Artificial Opening Endoscopic, Diagnostic (ICD-10-PCS; 2020-10-09)
PROC: 0DB68ZX Excision of Stomach, Via Natural or Artificial Opening Endoscopic, Diagnostic (ICD-10-PCS; principal; 2020-10-09 14:00)
PROC: 06HY33Z Insertion of Infusion Device into Lower Vein, Percutaneous Approach (ICD-10-PCS; 2020-10-12)
DX: K20.91 Esophagitis, unspecified with bleeding (principal); E43 Unspecified severe protein-calorie malnutrition; N39.0 Urinary tract infection, site not specified; J90 Pleural effusion, not elsewhere classified; D64.9 Anemia, unspecified; I25.10 Atherosclerotic heart disease of native coronary artery without angina pectoris; I10 Essential (primary) hypertension; K29.90 Gastroduodenitis, unspecified, without bleeding; Z20.822 Contact with and (suspected) exposure to COVID-19; K44.9 Diaphragmatic hernia without obstruction or gangrene; Z96.611 Presence of right artificial shoulder joint; G89.29 Other chronic pain; M54.9 Dorsalgia, unspecified; K57.90 Diverticulosis of intestine, part unspecified, without perforation or abscess without bleeding; K22.70 Barrett's esophagus without dysplasia; N20.0 Calculus of kidney; N40.0 Benign prostatic hyperplasia without lower urinary tract symptoms; Z79.82 Long term (current) use of aspirin; Z68.23 Body mass index [BMI] 23.0-23.9, adult; Z80.42 Family history of malignant neoplasm of prostate; Z80.0 Family history of malignant neoplasm of digestive organs; I25.2 Old myocardial infarction; Z90.49 Acquired absence of other specified parts of digestive tract
CPT/HCPCS: 36415; 71045; 73560; 74176; 80048; 80053; 81001; 82378; 83735; 85014; 85018; 85025; 85049; 85610; 85730; 86850; 86900; 86901; 87081; 87086; 87088; 87186; 87426; 93005; 96361; 96374; 96375; 97110; 97116; 97163; 97530; C9113; G0378; J0696; J1335; J2250; J2405; J7060

== ENCOUNTER 2020-12-24 14:16 | Inpatient (IN) | payer OTHER ==
[~2020-12-24] VITALS: Ht 185.4 cm; Wt 109.0 kg
[~2020-12-24 14:16] MED LIST changes: -ASPI-543 PO; -ASPI81CH43 PO; +PANT40TA2 PO; +POLY33504 PO; +SUCR1SUS10 PO
[2020-12-24 15:09] LABS: Basophils # (auto) 0.1 10 ^3/uL (0-0.2); Basophils % (auto) 0.5 % (0.0-2.0); Eosinophils # (auto) 0.2 10 ^3/uL (0-0.8); Monocytes # (auto) 0.7 10 ^3/uL (0-1.3)
[2020-12-24 15:11] LABS: Eosinophils % (auto) 1.7 % (0.0-7.0); Hematocrit 37.5 % (41.0-53.0); Hemoglobin 12.6 g/dL (13.5-17.5); Lymphocytes # (auto) 3.3 10 ^3/uL (0.4-5.4); Lymphocytes % (auto) 27.8 % (10.0-50.0); Mean Corpuscular Hemoglobin 24.8 pg (28.0-32.0); Mean Corpuscular Hgb Conc. 33.6 g/dL (32.0-36.0); Monocytes % (auto) 6.3 % (0.0-12.0); Neutrophils # (auto) 7.5 10 ^3/uL (1.6-8.6); Neutrophils % (auto) 63.7 % (37.0-80.0); Red Blood Cells 5.07 10^6/uL (4.5-5.90); Red Cell Distribution Width 17.5 % (11.8-14.3); White Blood Cell 11.8 10^3/uL (4.4-10.8)
[2020-12-24 15:35] LABS: INR 1.06 (0.9-1.15); Partial Thromboplastin Time 27.9 sec (23.6-33.0)
[2020-12-24 16:51] LABS: Urine Bacteria NONE SEEN /hpf (None Seen); Urine Blood Negative /uL (Negative); Urine Specific Gravity 1.011 (1.001-1.035); Urine WBC <1 /hpf (0 - 3)
[2020-12-24 17:13] LABS: Albumin 3.2 g/dL (3.4-5.0); Anion Gap 11 (5-15); Blood Urea Nitrogen 23 mg/dL (7-18); Calcium 9.9 mg/dL (8.5-10.1); Carbon Dioxide 23 mmol/L (21-32); Chloride 102 mmol/L (98-107); Glucose 105 mg/dL (74-106); Potassium 4.3 mmol/L (3.5-5.1); Sodium 136 mmol/L (136-145)
[2020-12-24] MEDS ORDERED: ONDANSETRON HCL 4 MG/2 ML VIAL IV ONE (17:15)
[2020-12-24] MEDS ORDERED: MORPHINE SULFATE 4 MG/ML SYR/VIAL IV ONE (17:15)
[2020-12-24 17:18] LABS: Alanine Aminotransferase 29 U/L (16-61); Alkaline Phosphatase 119 U/L (45-117); Aspartate Aminotransferase 17 U/L (15-37); BUN/Creatinine Ratio 15.6; Bilirubin, Total 0.3 mg/dL (0.2-1.0); GFR African American 58 mL/min; GFR Non-African American 48 mL/min
[2020-12-24] MEDS ORDERED: HYDROcodone-ACET 10/325MG TAB PO PRN (18:45)
[2020-12-24] MEDS ORDERED: MORPHINE SULFATE INJECTION 2 MG/ML SYRG IV PRN (18:45)
[2020-12-24] MEDS ORDERED: NITROGLYCERIN 0.4 MG SL TAB SL PRN (18:45)
[2020-12-24] MEDS: ONDANSETRON HCL 4 MG/2 ML VIAL IV PRN (22:45)
[2020-12-24] MEDS: MORPHINE SULFATE INJECTION 2 MG/ML SYRG IV PRN (22:45)
[2020-12-24] MEDS: PANTOPRAZOLE 40 MG TAB PO SCH (22:45)
[2020-12-24] MEDS: ATORVASTATIN 20 MG TAB PO SCH (22:45)
[2020-12-24] MEDS: FERROUS SULFATE 325mg EC TAB PO SCH (22:45)
[2020-12-25 04:17] LABS: Basophils # (auto) 0.1 10 ^3/uL (0-0.2); Eosinophils # (auto) 0.2 10 ^3/uL (0-0.8); Hemoglobin 12.6 g/dL (13.5-17.5); Monocytes # (auto) 0.8 10 ^3/uL (0-1.3); Neutrophils # (auto) 6.2 10 ^3/uL (1.6-8.6); Nucleated Red Blood Cells % 0.1 %
[2020-12-25 04:19] LABS: Basophils % (auto) 0.7 % (0.0-2.0); Eosinophils % (auto) 1.9 % (0.0-7.0); Hematocrit 38.3 % (41.0-53.0); Lymphocytes # (auto) 4.3 10 ^3/uL (0.4-5.4); Lymphocytes % (auto) 37.2 % (10.0-50.0); Mean Corpuscular Hemoglobin 24.4 pg (28.0-32.0); Mean Corpuscular Hgb Conc. 32.9 g/dL (32.0-36.0); Mean Corpuscular Volume 74.2 fL (80.0-100.0); Monocytes % (auto) 6.7 % (0.0-12.0); Neutrophils % (auto) 53.5 % (37.0-80.0); Red Blood Cells 5.16 10^6/uL (4.5-5.90); Red Cell Distribution Width 17.5 % (11.8-14.3); White Blood Cell 11.6 10^3/uL (4.4-10.8)
[2020-12-25 04:38] LABS: Albumin 3.3 g/dL (3.4-5.0); BUN/Creatinine Ratio 16.8; Potassium 4.3 mmol/L (3.5-5.1)
[2020-12-25 04:42] LABS: Bilirubin, Total 0.5 mg/dL (0.2-1.0); Total Protein 6.9 g/dL (6.4-8.2)
[2020-12-25] MEDS: FERROUS SULFATE 325mg EC TAB PO SCH ×2 (09:35→21:33)
[2020-12-25] MEDS: POLYETHYLENE GLYCOL 17 GM PWDR PO SCH (09:37)
[2020-12-25] MEDS: FINASTERIDE 5 MG TAB PO SCH (09:37)
[2020-12-25] MEDS: PANTOPRAZOLE 40 MG TAB PO SCH ×2 (09:37→21:34)
[2020-12-25] MEDS: ENOXAPARIN SOD 40 MG/0.4 ML SYRINGE SC SCH (09:45)
[2020-12-25] MEDS: ONDANSETRON HCL 4 MG/2 ML VIAL IV PRN (16:52)
[2020-12-25] MEDS: MORPHINE SULFATE INJECTION 2 MG/ML SYRG IV PRN (16:52)
[2020-12-25] MEDS: TAMSULOSIN HYDROCHLORIDE 0.4 MG CAP PO SCH (17:41)
[2020-12-25 18:45] VITALS: BP 120/72
[2020-12-25] MEDS ORDERED: SENN1TAB14 PO (20:35)
[2020-12-25] MEDS ORDERED: LORA0.5T20 PO (20:35)
[2020-12-25] MEDS: ATORVASTATIN 20 MG TAB PO SCH (21:34)
[2020-12-25 22:00] VITALS: BP 120/72
[2020-12-25] MEDS: HYDROcodone-ACET 10/325MG TAB PO PRN (22:12)
[2020-12-26 05:28] VITALS: BP 95/55
[2020-12-26 06:29] LABS: Basophils # (auto) 0 10 ^3/uL (0-0.2); Hemoglobin 11.8 g/dL (13.5-17.5); Monocytes # (auto) 0.7 10 ^3/uL (0-1.3); Neutrophils # (auto) 4.2 10 ^3/uL (1.6-8.6); Red Blood Cells 4.78 10^6/uL (4.5-5.90); White Blood Cell 8.7 10^3/uL (4.4-10.8)
[2020-12-26 06:31] LABS: Basophils % (auto) 0.4 % (0.0-2.0); Eosinophils # (auto) 0.2 10 ^3/uL (0-0.8); Eosinophils % (auto) 2.5 % (0.0-7.0); Hematocrit 35.4 % (41.0-53.0); Lymphocytes # (auto) 3.4 10 ^3/uL (0.4-5.4); Lymphocytes % (auto) 39.6 % (10.0-50.0); Mean Corpuscular Hemoglobin 24.7 pg (28.0-32.0); Mean Corpuscular Hgb Conc. 33.3 g/dL (32.0-36.0); Mean Corpuscular Volume 74.1 fL (80.0-100.0); Monocytes % (auto) 8.6 % (0.0-12.0); Neutrophils % (auto) 48.9 % (37.0-80.0); Nucleated Red Blood Cells % 0.1 %; Red Cell Distribution Width 17.8 % (11.8-14.3)
[2020-12-26] MEDS: MORPHINE SULFATE INJECTION 2 MG/ML SYRG IV PRN ×2 (06:36→23:14)
[2020-12-26 06:42] LABS: BUN/Creatinine Ratio 17.6; Potassium 4.3 mmol/L (3.5-5.1)
[2020-12-26 08:00] VITALS: BP 111/95
[2020-12-26 08:36] VITALS: BP 111/75
[2020-12-26] MEDS: POLYETHYLENE GLYCOL 17 GM PWDR PO SCH (09:39)
[2020-12-26] MEDS: FERROUS SULFATE 325mg EC TAB PO SCH ×2 (09:39→21:20)
[2020-12-26] MEDS: ENOXAPARIN SOD 40 MG/0.4 ML SYRINGE SC SCH (09:39)
[2020-12-26] MEDS: PANTOPRAZOLE 40 MG TAB PO SCH ×2 (09:39→21:21)
[2020-12-26] MEDS: FINASTERIDE 5 MG TAB PO SCH (09:39)
[2020-12-26] MEDS: HYDROcodone-ACET 10/325MG TAB PO PRN ×3 (09:40→21:21)
[2020-12-26] MEDS ORDERED: TRANEXAMIC ACID 20 ML ONE (12:37)
[2020-12-26] MEDS ORDERED: EPINEPHrine HCL 1 MG/1 ML AMP ONE (12:37)
[2020-12-26] MEDS ORDERED: VANCOMYCIN HCL 1000 MG VL ONE (13:02)
[2020-12-26 13:14] VITALS: BP 128/76
[2020-12-26] MEDS ORDERED: ceFAZolin 1GM/50ML 50 ML IV ONE (13:31)
[2020-12-26 16:44] VITALS: BP 110/68
[2020-12-26] MEDS: LACTULOSE 20Gm/30ML SOLN PO PRN (17:07)
[2020-12-26] MEDS: TAMSULOSIN HYDROCHLORIDE 0.4 MG CAP PO SCH (17:57)
[2020-12-26] MEDS: ATORVASTATIN 20 MG TAB PO SCH (21:20)
[2020-12-26 21:45] VITALS: BP 114/69
[2020-12-27 06:28] VITALS: BP 125/85
[2020-12-27 09:00] VITALS: BP 120/79
[2020-12-27] MEDS: HYDROcodone-ACET 10/325MG TAB PO PRN (09:00)
[2020-12-27] MEDS: FERROUS SULFATE 325mg EC TAB PO SCH ×2 (09:36→21:12)
[2020-12-27] MEDS: POLYETHYLENE GLYCOL 17 GM PWDR PO SCH (09:37)
[2020-12-27] MEDS: FINASTERIDE 5 MG TAB PO SCH (09:37)
[2020-12-27] MEDS: PANTOPRAZOLE 40 MG TAB PO SCH ×2 (09:38→21:12)
[2020-12-27] MEDS ORDERED: ceFAZolin 1GM/50ML 100 ML IV ONE (11:52)
[2020-12-27] MEDS ORDERED: TETRACAINE 1% INJ 2 ML VIAL IJ ONE (12:04)
[2020-12-27] MEDS ORDERED: LIDOCAINE 1% HCL (LOCAL ANESTH.) INJ 20ML MDV ONE (12:04)
[2020-12-27] MEDS ORDERED: methylPREDNISolone ACETATE 80 MG/ML VL ONE (12:04)
[2020-12-27] MEDS ORDERED: fentaNYL CITRATE 100 MCG/2 ML VL ONE ×2 (12:07→12:55)
[2020-12-27] MEDS ORDERED: MIDAZOLAM HCL 2MG/2ML 2ml VIAL (1mg/ml) ONE ×2 (12:08→12:12)
[2020-12-27] MEDS ORDERED: PROPOFOL 10 MG/ML 20 ML IV ONE ×2 (12:09→13:19)
[2020-12-27] MEDS ORDERED: DexAMETHasone SOD PHOS 10MG/1ML VIAL INJ ONE (12:09)
[2020-12-27] MEDS ORDERED: KETAMINE HCL 10 ML ONE (12:55)
[2020-12-27] MEDS ORDERED: LIDOCAINE 2% (LOCAL ANESTH.) PF 5ml SDV ONE (13:16)
[2020-12-27] MEDS ORDERED: ESMOLOL HCL 10 ML IV ONE (14:23)
[2020-12-27] MEDS ORDERED: HYDROmorphone HCL 2 MG/ML VL IV PRN (15:00)
[2020-12-27] MEDS ORDERED: MORPHINE SULFATE INJECTION 2 MG/ML SYRG IV PRN (15:00)
[2020-12-27] MEDS ORDERED: ONDANSETRON HCL 4 MG/2 ML VIAL IV PRN (15:00)
[2020-12-27] MEDS ORDERED: HYDROmorphone HCL 2 MG/ML VL ONE (15:09)
[2020-12-27] MEDS: MORPHINE SULFATE INJECTION 2 MG/ML SYRG IV PRN ×2 (16:15→20:35)
[2020-12-27] MEDS: ONDANSETRON HCL 4 MG/2 ML VIAL IV PRN (17:44)
[2020-12-27] MEDS: TAMSULOSIN HYDROCHLORIDE 0.4 MG CAP PO SCH (17:44)
[2020-12-27] MEDS: LACTULOSE 20Gm/30ML SOLN PO PRN (18:45)
[2020-12-27] MEDS: ATORVASTATIN 20 MG TAB PO SCH (21:12)
[2020-12-27] MEDS: ceFAZolin 2 GM in D5W 5% 100 ML IV SCH (21:47)
[2020-12-27] MEDS: SODIUM CHLORIDE 0.9% 1,000 ML IV SCH (21:52)
[2020-12-27 22:00] VITALS: BP 109/69
[2020-12-28] MEDS: MORPHINE SULFATE INJECTION 2 MG/ML SYRG IV PRN ×5 (00:59→21:22)
[2020-12-28] MEDS: HYDROcodone-ACET 10/325MG TAB PO PRN (02:34)
[2020-12-28] MEDS: SODIUM CHLORIDE 0.9% 1,000 ML IV SCH ×2 (03:30→11:51)
[2020-12-28 05:26] LABS: Basophils # (auto) 0 10 ^3/uL (0-0.2); Basophils % (auto) 0.1 % (0.0-2.0); Eosinophils # (auto) 0 10 ^3/uL (0-0.8); Lymphocytes # (auto) 1.7 10 ^3/uL (0.4-5.4); Monocytes # (auto) 0.9 10 ^3/uL (0-1.3)
[2020-12-28] MEDS: ceFAZolin 2 GM in D5W 5% 100 ML IV SCH (05:28)
[2020-12-28 05:29] LABS: Hemoglobin 9.5 g/dL (13.5-17.5); Lymphocytes % (auto) 13.4 % (10.0-50.0); Mean Corpuscular Hemoglobin 24.2 pg (28.0-32.0); Mean Corpuscular Hgb Conc. 32.6 g/dL (32.0-36.0); Mean Corpuscular Volume 74.3 fL (80.0-100.0); Monocytes % (auto) 7.5 % (0.0-12.0); Neutrophils # (auto) 9.9 10 ^3/uL (1.6-8.6); Nucleated Red Blood Cells % 0.1 %; Red Blood Cells 3.91 10^6/uL (4.5-5.90); Red Cell Distribution Width 17.7 % (11.8-14.3); White Blood Cell 12.5 10^3/uL (4.4-10.8)
[2020-12-28 05:40] VITALS: BP 113/69
[2020-12-28 05:44] LABS: Potassium 4.3 mmol/L (3.5-5.1)
[2020-12-28 05:51] LABS: BUN/Creatinine Ratio 20.7; Calcium 9.4 mg/dL (8.5-10.1)
[2020-12-28] MEDS: FERROUS SULFATE 325mg EC TAB PO SCH ×2 (08:55→21:06)
[2020-12-28] MEDS: PANTOPRAZOLE 40 MG TAB PO SCH ×2 (08:56→21:06)
[2020-12-28] MEDS: ENOXAPARIN SOD 40 MG/0.4 ML SYRINGE SC SCH (08:56)
[2020-12-28] MEDS: POLYETHYLENE GLYCOL 17 GM PWDR PO SCH (08:56)
[2020-12-28] MEDS: FINASTERIDE 5 MG TAB PO SCH (08:56)
[2020-12-28 09:00] VITALS: BP 107/61
[2020-12-28] MEDS ORDERED: DIGOXIN 0.25 MG TAB PO ONE (10:30)
[2020-12-28] MEDS: ONDANSETRON HCL 4 MG/2 ML VIAL IV PRN ×2 (10:34→19:05)
[2020-12-28] MEDS: AMIODARONE HCL 200 MG TAB PO SCH ×2 (11:51→21:06)
[2020-12-28] MEDS ORDERED: POLYETHYLENE GLYCOL 17 GM PWDR PO ONE (12:00)
[2020-12-28 13:00] VITALS: BP 107/61
[2020-12-28] MEDS ORDERED: FLEET ENEMA(ADULT) 135 ML PR ONE (13:00)
[2020-12-28] MEDS ORDERED: MAGNESIUM CITRATE SOLUTION 300 ML BTL PO ONE (14:45)
[2020-12-28 17:00] VITALS: BP 130/75
[2020-12-28] MEDS: TAMSULOSIN HYDROCHLORIDE 0.4 MG CAP PO SCH (18:53)
[2020-12-28] MEDS: ATORVASTATIN 20 MG TAB PO SCH (21:06)
[2020-12-28 22:00] VITALS: BP 138/76
[2020-12-29] VITALS (9 sets, daily range): BP systolic 96–129; BP diastolic 60–72
[2020-12-29 06:32] LABS: Basophils # (auto) 0 10 ^3/uL (0-0.2); Basophils % (auto) 0.1 % (0.0-2.0); Eosinophils # (auto) 0 10 ^3/uL (0-0.8); Hemoglobin 8.4 g/dL (13.5-17.5)
[2020-12-29 06:35] LABS: Hematocrit 24.5 % (41.0-53.0); Lymphocytes # (auto) 1.9 10 ^3/uL (0.4-5.4); Lymphocytes % (auto) 14.8 % (10.0-50.0); Mean Corpuscular Hemoglobin 25.4 pg (28.0-32.0); Mean Corpuscular Hgb Conc. 34.4 g/dL (32.0-36.0); Mean Corpuscular Volume 73.9 fL (80.0-100.0); Monocytes # (auto) 1.1 10 ^3/uL (0-1.3); Monocytes % (auto) 8.9 % (0.0-12.0); Neutrophils # (auto) 9.8 10 ^3/uL (1.6-8.6); Neutrophils % (auto) 76.2 % (37.0-80.0); Red Blood Cells 3.31 10^6/uL (4.5-5.90); Red Cell Distribution Width 17.7 % (11.8-14.3); White Blood Cell 12.9 10^3/uL (4.4-10.8)
[2020-12-29 06:41] LABS: Potassium 4.2 mmol/L (3.5-5.1)
[2020-12-29 06:47] LABS: BUN/Creatinine Ratio 19.8; Magnesium 2.3 mg/dL (1.6-2.6)
[2020-12-29] MEDS: MORPHINE SULFATE INJECTION 2 MG/ML SYRG IV PRN (06:52)
[2020-12-29] MEDS: ONDANSETRON HCL 4 MG/2 ML VIAL IV PRN (06:52)
[2020-12-29] MEDS: POLYETHYLENE GLYCOL 17 GM PWDR PO SCH (10:00)
[2020-12-29] MEDS ORDERED: MAGNESIUM CITRATE SOLUTION 300 ML BTL PO ONE (10:30)
[2020-12-29] MEDS: FERROUS SULFATE 325mg EC TAB PO SCH ×2 (11:13→18:20)
[2020-12-29] MEDS: AMIODARONE HCL 200 MG TAB PO SCH ×2 (11:13→21:20)
[2020-12-29] MEDS: PANTOPRAZOLE 40 MG TAB PO SCH ×2 (11:13→21:20)
[2020-12-29] MEDS: FINASTERIDE 5 MG TAB PO SCH (11:13)
[2020-12-29] MEDS: HYDROmorphone HCL 2 MG/ML VL IV PRN ×3 (11:14→20:04)
[2020-12-29] MEDS: ENOXAPARIN SOD 40 MG/0.4 ML SYRINGE SC SCH (11:14)
[2020-12-29] MEDS: BISACODYL 10 MG RECT SUPP PR PRN (11:14)
[2020-12-29 17:18] LABS: Hematocrit 27.2 % (41.0-53.0)
[2020-12-29] MEDS: TAMSULOSIN HYDROCHLORIDE 0.4 MG CAP PO SCH (18:20)
[2020-12-29] MEDS: ATORVASTATIN 20 MG TAB PO SCH (21:20)
[2020-12-30] MEDS: HYDROmorphone HCL 2 MG/ML VL IV PRN ×3 (00:11→22:08)
[2020-12-30] MEDS: LACTULOSE 20Gm/30ML SOLN PO PRN (00:11)
[2020-12-30 00:20] VITALS: BP 116/73
[2020-12-30 05:00] VITALS: BP 119/68
[2020-12-30 06:35] LABS: Basophils # (auto) 0 10 ^3/uL (0-0.2); Basophils % (auto) 0.2 % (0.0-2.0); Eosinophils # (auto) 0.1 10 ^3/uL (0-0.8); Lymphocytes % (auto) 21.9 % (10.0-50.0); Monocytes # (auto) 1.2 10 ^3/uL (0-1.3); Monocytes % (auto) 10.1 % (0.0-12.0)
[2020-12-30 06:37] LABS: Eosinophils % (auto) 0.9 % (0.0-7.0); Hematocrit 28.4 % (41.0-53.0); Hemoglobin 9.6 g/dL (13.5-17.5); Lymphocytes # (auto) 2.6 10 ^3/uL (0.4-5.4); Mean Corpuscular Hemoglobin 25.7 pg (28.0-32.0); Mean Corpuscular Hgb Conc. 33.9 g/dL (32.0-36.0); Mean Corpuscular Volume 75.9 fL (80.0-100.0); Neutrophils # (auto) 7.8 10 ^3/uL (1.6-8.6); Neutrophils % (auto) 66.9 % (37.0-80.0); Red Blood Cells 3.75 10^6/uL (4.5-5.90); Red Cell Distribution Width 18.7 % (11.8-14.3); White Blood Cell 11.6 10^3/uL (4.4-10.8)
[2020-12-30 09:00] VITALS: BP 139/79
[2020-12-30] MEDS: POLYETHYLENE GLYCOL 17 GM PWDR PO SCH (09:10)
[2020-12-30] MEDS: DIGOXIN 0.25 MG TAB PO SCH (09:10)
[2020-12-30] MEDS: AMIODARONE HCL 200 MG TAB PO SCH ×2 (09:10→21:57)
[2020-12-30] MEDS: FERROUS SULFATE 325mg EC TAB PO SCH ×2 (09:10→18:46)
[2020-12-30] MEDS: PANTOPRAZOLE 40 MG TAB PO SCH ×2 (09:11→21:58)
[2020-12-30] MEDS: FINASTERIDE 5 MG TAB PO SCH (09:11)
[2020-12-30] MEDS: ENOXAPARIN SOD 40 MG/0.4 ML SYRINGE SC SCH (09:12)
[2020-12-30 12:36] VITALS: BP 94/56
[2020-12-30 17:00] VITALS: BP 145/91
[2020-12-30] MEDS: TAMSULOSIN HYDROCHLORIDE 0.4 MG CAP PO SCH (18:46)
[2020-12-30] MEDS: ONDANSETRON HCL 4 MG/2 ML VIAL IV PRN (18:46)
[2020-12-30] MEDS: ATORVASTATIN 20 MG TAB PO SCH (21:58)
[2020-12-30 22:00] VITALS: BP 116/90
[2020-12-31] MEDS: HYDROmorphone HCL 2 MG/ML VL IV PRN ×3 (05:13→22:39)
[2020-12-31 06:00] LABS: Basophils # (auto) 0 10 ^3/uL (0-0.2); Eosinophils # (auto) 0.2 10 ^3/uL (0-0.8); Hemoglobin 9.1 g/dL (13.5-17.5); Lymphocytes # (auto) 2.6 10 ^3/uL (0.4-5.4); Lymphocytes % (auto) 24.5 % (10.0-50.0); Neutrophils # (auto) 6.7 10 ^3/uL (1.6-8.6)
[2020-12-31 06:03] LABS: Basophils % (auto) 0.3 % (0.0-2.0); Eosinophils % (auto) 1.6 % (0.0-7.0); Hematocrit 26.7 % (41.0-53.0); Mean Corpuscular Hemoglobin 25.8 pg (28.0-32.0); Mean Corpuscular Hgb Conc. 34.1 g/dL (32.0-36.0); Mean Corpuscular Volume 75.5 fL (80.0-100.0); Monocytes # (auto) 1.1 10 ^3/uL (0-1.3); Monocytes % (auto) 10.1 % (0.0-12.0); Neutrophils % (auto) 63.5 % (37.0-80.0); Red Blood Cells 3.54 10^6/uL (4.5-5.90); Red Cell Distribution Width 18.9 % (11.8-14.3); White Blood Cell 10.6 10^3/uL (4.4-10.8)
[2020-12-31] MEDS: FERROUS SULFATE 325mg EC TAB PO SCH ×2 (08:00→18:00)
[2020-12-31] MEDS: SODIUM CHLORIDE 0.9% 1,000 ML IV SCH ×3 (08:25→22:50)
[2020-12-31 09:00] VITALS: BP 113/65
[2020-12-31] MEDS: DIGOXIN 0.25 MG TAB PO SCH (10:00)
[2020-12-31] MEDS: AMIODARONE HCL 200 MG TAB PO SCH ×2 (10:00→22:50)
[2020-12-31] MEDS: PANTOPRAZOLE 40 MG TAB PO SCH ×2 (10:00→22:49)
[2020-12-31] MEDS: FINASTERIDE 5 MG TAB PO SCH (10:00)
[2020-12-31] MEDS: POLYETHYLENE GLYCOL 17 GM PWDR PO SCH (10:00)
[2020-12-31] MEDS ORDERED: ENOXAPARIN SOD 30 MG/0.3 ML SYRINGE SC ONE (11:45)
[2020-12-31] MEDS ORDERED: ENOXAPARIN SOD 40 MG/0.4 ML SYRINGE SC SCH (11:45)
[2020-12-31] MEDS ORDERED: TRANEXAMIC ACID 20 ML ONE (12:18)
[2020-12-31] MEDS ORDERED: BUPIVACAINE W/ EPINEPH 0.25% INJ 50ML MDV ONE (12:18)
[2020-12-31] MEDS ORDERED: VANCOMYCIN HCL 1000 MG VL ONE (12:21)
[2020-12-31] MEDS ORDERED: PHENYLEPHRINE HCL 10 MG/ML VL IV ONE (12:30)
[2020-12-31] MEDS ORDERED: ceFAZolin 1GM VL IV ONE (12:30)
[2020-12-31] MEDS ORDERED: DexAMETHasone SOD PHOS 10MG/1ML VIAL INJ IV ONE (12:30)
[2020-12-31] MEDS ORDERED: TETRACAINE 1% INJ 2 ML VIAL IJ ONE (12:42)
[2020-12-31] MEDS ORDERED: SUCCINYLCHOLINE CHLORIDE 20 MG/ML 10ML VIAL IV ONE (12:43)
[2020-12-31 13:00] VITALS: BP 125/67
[2020-12-31] MEDS ORDERED: EPINEPHrine HCL 1 MG/1 ML AMP ONE ×2 (13:45→14:29)
[2020-12-31] MEDS ORDERED: ceFAZolin 1GM/50ML 100 ML IV ONE (14:24)
[2020-12-31] MEDS ORDERED: fentaNYL CITRATE 100 MCG/2 ML VL ONE (14:27)
[2020-12-31] MEDS ORDERED: MIDAZOLAM HCL 2MG/2ML 2ml VIAL (1mg/ml) ONE ×2 (14:28→15:09)
[2020-12-31] MEDS ORDERED: PROPOFOL 10 MG/ML 20 ML IV ONE (14:29)
[2020-12-31] MEDS ORDERED: BUPIVACAINE/DEXTROSE MPF 0.75% 2 ML AMP IT ONE (14:29)
[2020-12-31] MEDS ORDERED: SODIUM CHLORIDE LOCK 10 ML ONE (14:29)
[2020-12-31] MEDS ORDERED: MORPHINE SULFATE 4 MG/ML SYR/VIAL IV PRN (18:00)
[2020-12-31] MEDS ORDERED: ONDANSETRON HCL 4 MG/2 ML VIAL IV PRN (18:00)
[2020-12-31] MEDS ORDERED: LABETALOL HCL 5 MG/ML 4ML SYRINGE IV PRN (18:00)
[2020-12-31] MEDS ORDERED: MIDAZOLAM HCL 2MG/2ML 2ml VIAL (1mg/ml) IV PRN (18:00)
[2020-12-31] MEDS ORDERED: ePHEDrine SULFATE 50 MG/ML AMP IV PRN (18:00)
[2020-12-31] MEDS ORDERED: HYDROmorphone HCL 2 MG/ML VL IV PRN (18:00)
[2020-12-31] MEDS: TAMSULOSIN HYDROCHLORIDE 0.4 MG CAP PO SCH (18:00)
[2020-12-31] MEDS ORDERED: ACETAMINOPHEN 325 MG TAB PO PRN (19:11)
[2020-12-31 21:29] LABS: BUN/Creatinine Ratio 19.7; Calcium 8.7 mg/dL (8.5-10.1); Potassium 3.8 mmol/L (3.5-5.1)
[2020-12-31 22:00] VITALS: BP 147/77
[2020-12-31] MEDS: ATORVASTATIN 20 MG TAB PO SCH (22:49)
[2020-12-31] MEDS: ceFAZolin 2 GM in D5W 5% 100 ML IV SCH (22:55)
[2020-12-31] MEDS: ONDANSETRON HCL 4 MG/2 ML VIAL IV PRN (22:58)
[2020-12-31 23:00] VITALS: BP 154/91
[2021-01-01] VITALS (23 sets, daily range): BP systolic 88–151; BP diastolic 56–88
[2021-01-01] MEDS: HYDROmorphone HCL 2 MG/ML VL IV PRN ×4 (02:50→21:19)
[2021-01-01] MEDS: SODIUM CHLORIDE 0.9% 1,000 ML IV SCH ×6 (03:30→19:45)
[2021-01-01 05:34] LABS: Basophils # (auto) 0 10 ^3/uL (0-0.2); Basophils % (auto) 0.1 % (0.0-2.0); Eosinophils # (auto) 0 10 ^3/uL (0-0.8); Monocytes # (auto) 0.7 10 ^3/uL (0-1.3)
[2021-01-01 05:39] LABS: Hematocrit 28.3 % (41.0-53.0); Hemoglobin 9.7 g/dL (13.5-17.5); Lymphocytes # (auto) 1.1 10 ^3/uL (0.4-5.4); Lymphocytes % (auto) 10.5 % (10.0-50.0); Mean Corpuscular Hemoglobin 26.5 pg (28.0-32.0); Mean Corpuscular Hgb Conc. 34.3 g/dL (32.0-36.0); Mean Corpuscular Volume 77.4 fL (80.0-100.0); Monocytes % (auto) 6.8 % (0.0-12.0); Neutrophils # (auto) 8.9 10 ^3/uL (1.6-8.6); Neutrophils % (auto) 82.6 % (37.0-80.0); Red Blood Cells 3.65 10^6/uL (4.5-5.90); Red Cell Distribution Width 18.8 % (11.8-14.3); White Blood Cell 10.8 10^3/uL (4.4-10.8)
[2021-01-01] MEDS: ceFAZolin 2 GM in D5W 5% 100 ML IV SCH (06:23)
[2021-01-01] MEDS: PANTOPRAZOLE 40 MG TAB PO SCH ×2 (09:07→22:04)
[2021-01-01] MEDS: FERROUS SULFATE 325mg EC TAB PO SCH ×2 (09:07→18:00)
[2021-01-01] MEDS: AMIODARONE HCL 200 MG TAB PO SCH ×2 (09:07→22:04)
[2021-01-01] MEDS: DIGOXIN 0.25 MG TAB PO SCH (09:07)
[2021-01-01] MEDS: FINASTERIDE 5 MG TAB PO SCH (09:08)
[2021-01-01] MEDS: POLYETHYLENE GLYCOL 17 GM PWDR PO SCH (09:09)
[2021-01-01] MEDS: ENOXAPARIN SOD 40 MG/0.4 ML SYRINGE SC SCH (09:10)
[2021-01-01] MEDS: ONDANSETRON HCL 4 MG/2 ML VIAL IV PRN ×2 (09:59→15:59)
[2021-01-01] MEDS ORDERED: ENOXAPARIN SOD 30 MG/0.3 ML SYRINGE SC SCH (10:00)
[2021-01-01] MEDS: HYDROcodone-ACET 10/325MG TAB PO PRN (17:11)
[2021-01-01] MEDS: TAMSULOSIN HYDROCHLORIDE 0.4 MG CAP PO SCH (18:00)
[2021-01-01] MEDS: ATORVASTATIN 20 MG TAB PO SCH (22:04)
[2021-01-02] MEDS: SODIUM CHLORIDE 0.9% 1,000 ML IV SCH ×6 (03:11→11:04)
[2021-01-02] MEDS: ONDANSETRON HCL 4 MG/2 ML VIAL IV PRN ×4 (04:26→18:15)
[2021-01-02] MEDS: HYDROmorphone HCL 2 MG/ML VL IV PRN ×4 (04:27→22:34)
[2021-01-02 05:00] VITALS: BP 137/73
[2021-01-02 08:57] VITALS: BP 138/80
[2021-01-02] MEDS: FERROUS SULFATE 325mg EC TAB PO SCH ×2 (09:08→17:41)
[2021-01-02] MEDS: AMIODARONE HCL 200 MG TAB PO SCH ×2 (09:08→22:34)
[2021-01-02] MEDS: DIGOXIN 0.25 MG TAB PO SCH (09:09)
[2021-01-02] MEDS: POLYETHYLENE GLYCOL 17 GM PWDR PO SCH (09:10)
[2021-01-02] MEDS: FINASTERIDE 5 MG TAB PO SCH (09:10)
[2021-01-02] MEDS: ENOXAPARIN SOD 40 MG/0.4 ML SYRINGE SC SCH (09:10)
[2021-01-02] MEDS: PANTOPRAZOLE 40 MG TAB PO SCH ×2 (09:10→22:34)
[2021-01-02] MEDS: HYDROcodone-ACET 10/325MG TAB PO PRN ×2 (09:11→18:15)
[2021-01-02 13:53] VITALS: BP 111/61
[2021-01-02 16:53] VITALS: BP 117/72
[2021-01-02] MEDS: TAMSULOSIN HYDROCHLORIDE 0.4 MG CAP PO SCH (17:42)
[2021-01-02 20:00] VITALS: BP 103/55
[2021-01-02 22:00] VITALS: BP 103/55
[2021-01-02] MEDS: ATORVASTATIN 20 MG TAB PO SCH (22:34)
[2021-01-03 05:00] VITALS: BP 111/62
[2021-01-03] MEDS: HYDROmorphone HCL 2 MG/ML VL IV PRN ×4 (05:40→22:05)
[2021-01-03 06:51] LABS: Basophils # (auto) 0 10 ^3/uL (0-0.2); Eosinophils # (auto) 0.3 10 ^3/uL (0-0.8); Monocytes # (auto) 0.9 10 ^3/uL (0-1.3); White Blood Cell 9.6 10^3/uL (4.4-10.8)
[2021-01-03] MEDS: ONDANSETRON HCL 4 MG/2 ML VIAL IV PRN ×2 (06:56→11:25)
[2021-01-03 07:02] LABS: Basophils % (auto) 0.2 % (0.0-2.0); Eosinophils % (auto) 2.8 % (0.0-7.0); Hematocrit 28.4 % (41.0-53.0); Hemoglobin 9.6 g/dL (13.5-17.5); Lymphocytes # (auto) 2.3 10 ^3/uL (0.4-5.4); Lymphocytes % (auto) 24.4 % (10.0-50.0); Mean Corpuscular Hemoglobin 26.2 pg (28.0-32.0); Mean Corpuscular Hgb Conc. 33.8 g/dL (32.0-36.0); Mean Corpuscular Volume 77.5 fL (80.0-100.0); Monocytes % (auto) 9.6 % (0.0-12.0); Red Blood Cells 3.66 10^6/uL (4.5-5.90); Red Cell Distribution Width 19.6 % (11.8-14.3)
[2021-01-03] MEDS: FERROUS SULFATE 325mg EC TAB PO SCH ×2 (08:00→18:00)
[2021-01-03 09:00] VITALS: BP 114/56
[2021-01-03] MEDS: FINASTERIDE 5 MG TAB PO SCH (09:08)
[2021-01-03] MEDS: PANTOPRAZOLE 40 MG TAB PO SCH ×2 (09:08→22:04)
[2021-01-03] MEDS: DIGOXIN 0.25 MG TAB PO SCH (09:08)
[2021-01-03] MEDS: AMIODARONE HCL 200 MG TAB PO SCH ×2 (09:08→22:04)
[2021-01-03] MEDS: POLYETHYLENE GLYCOL 17 GM PWDR PO SCH (09:09)
[2021-01-03] MEDS: ENOXAPARIN SOD 40 MG/0.4 ML SYRINGE SC SCH (09:09)
[2021-01-03 13:00] VITALS: BP 114/68
[2021-01-03] MEDS: LACTULOSE 20Gm/30ML SOLN PO PRN (15:57)
[2021-01-03 17:00] VITALS: BP 137/75
[2021-01-03] MEDS: TAMSULOSIN HYDROCHLORIDE 0.4 MG CAP PO SCH (18:04)
[2021-01-03 18:53] LABS: Urine Bacteria NONE SEEN /hpf (None Seen); Urine Blood 2+ /uL (Negative); Urine WBC 2 /hpf (0 - 3)
[2021-01-03 20:00] VITALS: BP 109/62
[2021-01-03 22:00] VITALS: BP 109/62
[2021-01-03] MEDS: ATORVASTATIN 20 MG TAB PO SCH (22:04)
[2021-01-04] MEDS: HYDROmorphone HCL 2 MG/ML VL IV PRN ×3 (02:55→16:57)
[2021-01-04 05:09] VITALS: BP 113/62
[2021-01-04] MEDS: LACTULOSE 20Gm/30ML SOLN PO PRN (06:13)
[2021-01-04] MEDS: HYDROcodone-ACET 10/325MG TAB PO PRN ×2 (06:24→11:47)
[2021-01-04 08:00] VITALS: BP 109/59
[2021-01-04] MEDS: FERROUS SULFATE 325mg EC TAB PO SCH (08:00)
[2021-01-04] MEDS: DIGOXIN 0.25 MG TAB PO SCH (09:35)
[2021-01-04] MEDS: BISACODYL 10 MG RECT SUPP PR PRN (09:35)
[2021-01-04] MEDS: AMIODARONE HCL 200 MG TAB PO SCH ×2 (09:35→21:29)
[2021-01-04] MEDS: FINASTERIDE 5 MG TAB PO SCH (09:36)
[2021-01-04] MEDS: ENOXAPARIN SOD 40 MG/0.4 ML SYRINGE SC SCH (09:36)
[2021-01-04] MEDS: PANTOPRAZOLE 40 MG TAB PO SCH ×2 (09:36→21:30)
[2021-01-04] MEDS: POLYETHYLENE GLYCOL 17 GM PWDR PO SCH (10:00)
[2021-01-04] MEDS ORDERED: CEFTRIAXONE SODIUM 2 GM in D5W 5% 50 ML IV ONE (12:30)
[2021-01-04 13:00] VITALS: BP 119/63
[2021-01-04] MEDS: TAMSULOSIN HYDROCHLORIDE 0.4 MG CAP PO SCH (16:56)
[2021-01-04 17:00] VITALS: BP 124/64
[2021-01-04] MEDS: ONDANSETRON HCL 4 MG/2 ML VIAL IV PRN ×2 (17:07→21:30)
[2021-01-04] MEDS: ATORVASTATIN 20 MG TAB PO SCH (21:29)
[2021-01-04 22:00] VITALS: BP 114/59
[2021-01-05] MEDS: HYDROmorphone HCL 2 MG/ML VL IV PRN ×4 (00:12→22:40)
[2021-01-05 05:00] VITALS: BP 108/52
[2021-01-05 09:00] VITALS: BP 126/67
[2021-01-05] MEDS: cefTRIAXone 1GM/50ML D5W 50 ML IV SCH (09:30)
[2021-01-05] MEDS: AMIODARONE HCL 200 MG TAB PO SCH ×2 (10:05→22:38)
[2021-01-05] MEDS: DIGOXIN 0.25 MG TAB PO SCH (10:05)
[2021-01-05] MEDS: FINASTERIDE 5 MG TAB PO SCH (10:05)
[2021-01-05] MEDS: ENOXAPARIN SOD 40 MG/0.4 ML SYRINGE SC SCH (10:06)
[2021-01-05] MEDS: PANTOPRAZOLE 40 MG TAB PO SCH ×2 (10:06→22:38)
[2021-01-05] MEDS: POLYETHYLENE GLYCOL 17 GM PWDR PO SCH (10:13)
[2021-01-05 13:00] VITALS: BP 108/58
[2021-01-05 17:00] VITALS: BP 115/61
[2021-01-05] MEDS: TAMSULOSIN HYDROCHLORIDE 0.4 MG CAP PO SCH (18:00)
[2021-01-05 20:00] VITALS: BP 118/58
[2021-01-05 21:42] VITALS: BP 118/58
[2021-01-05] MEDS: ATORVASTATIN 20 MG TAB PO SCH (22:38)
[2021-01-06 04:39] VITALS: BP 118/60
[2021-01-06] MEDS: HYDROmorphone HCL 2 MG/ML VL IV PRN ×2 (05:34→18:59)
[2021-01-06 06:27] LABS: Basophils # (auto) 0.1 10 ^3/uL (0-0.2); Basophils % (auto) 0.6 % (0.0-2.0); Hematocrit 28.1 % (41.0-53.0); Lymphocytes # (auto) 2.4 10 ^3/uL (0.4-5.4); Monocytes # (auto) 0.9 10 ^3/uL (0-1.3); Red Blood Cells 3.65 10^6/uL (4.5-5.90)
[2021-01-06 06:31] LABS: Eosinophils # (auto) 0.4 10 ^3/uL (0-0.8); Eosinophils % (auto) 4.2 % (0.0-7.0); Hemoglobin 9.6 g/dL (13.5-17.5); Lymphocytes % (auto) 25.1 % (10.0-50.0); Mean Corpuscular Hemoglobin 26.4 pg (28.0-32.0); Mean Corpuscular Hgb Conc. 34.3 g/dL (32.0-36.0); Mean Corpuscular Volume 76.9 fL (80.0-100.0); Monocytes % (auto) 9.3 % (0.0-12.0); Neutrophils # (auto) 5.8 10 ^3/uL (1.6-8.6); Neutrophils % (auto) 60.8 % (37.0-80.0); Red Cell Distribution Width 19.6 % (11.8-14.3); White Blood Cell 9.6 10^3/uL (4.4-10.8)
[2021-01-06 06:37] LABS: Potassium 4.1 mmol/L (3.5-5.1)
[2021-01-06 06:49] LABS: BUN/Creatinine Ratio 18.1; Calcium 8.8 mg/dL (8.5-10.1)
[2021-01-06 08:00] VITALS: BP 104/61
[2021-01-06] MEDS: cefTRIAXone 1GM/50ML D5W 50 ML IV SCH (09:15)
[2021-01-06] MEDS: ENOXAPARIN SOD 40 MG/0.4 ML SYRINGE SC SCH (09:15)
[2021-01-06] MEDS: POLYETHYLENE GLYCOL 17 GM PWDR PO SCH (09:15)
[2021-01-06] MEDS: HYDROcodone-ACET 10/325MG TAB PO PRN ×2 (09:15→15:55)
[2021-01-06] MEDS: AMIODARONE HCL 200 MG TAB PO SCH ×2 (09:16→21:42)
[2021-01-06] MEDS: FINASTERIDE 5 MG TAB PO SCH (09:16)
[2021-01-06] MEDS: PANTOPRAZOLE 40 MG TAB PO SCH ×2 (09:16→21:42)
[2021-01-06] MEDS: DIGOXIN 0.25 MG TAB PO SCH (09:16)
[2021-01-06 12:00] VITALS: BP 119/59
[2021-01-06 17:00] VITALS: BP 138/72
[2021-01-06] MEDS: TAMSULOSIN HYDROCHLORIDE 0.4 MG CAP PO SCH (18:37)
[2021-01-06] MEDS: ONDANSETRON HCL 4 MG/2 ML VIAL IV PRN (18:59)
[2021-01-06] MEDS: ATORVASTATIN 20 MG TAB PO SCH (21:42)
[2021-01-06 22:00] VITALS: BP 117/62
[2021-01-07 05:00] VITALS: BP 118/69
[2021-01-07] MEDS: HYDROmorphone HCL 2 MG/ML VL IV PRN ×2 (05:22→18:37)
[2021-01-07] MEDS: ONDANSETRON HCL 4 MG/2 ML VIAL IV PRN (07:45)
[2021-01-07 09:00] VITALS: BP 142/64
[2021-01-07] MEDS: cefTRIAXone 1GM/50ML D5W 50 ML IV SCH (09:35)
[2021-01-07] MEDS: POLYETHYLENE GLYCOL 17 GM PWDR PO SCH (09:36)
[2021-01-07] MEDS: AMIODARONE HCL 200 MG TAB PO SCH ×2 (09:36→22:16)
[2021-01-07] MEDS: DIGOXIN 0.25 MG TAB PO SCH (09:36)
[2021-01-07] MEDS: FINASTERIDE 5 MG TAB PO SCH (09:36)
[2021-01-07] MEDS: PANTOPRAZOLE 40 MG TAB PO SCH ×2 (09:36→22:16)
[2021-01-07] MEDS: ENOXAPARIN SOD 40 MG/0.4 ML SYRINGE SC SCH (09:36)
[2021-01-07] MEDS ORDERED: METOCLOPRAMIDE HCL 5MG/ml INJ 2ml VIAL IV PRN (11:30)
[2021-01-07 13:00] VITALS: BP 136/66
[2021-01-07] MEDS: HYDROcodone-ACET 10/325MG TAB PO PRN (13:39)
[2021-01-07] MEDS ORDERED: PROMETHAZINE HCL 25 MG/ML 1ML IM ONE (16:15)
[2021-01-07 17:00] VITALS: BP 121/54
[2021-01-07] MEDS: TAMSULOSIN HYDROCHLORIDE 0.4 MG CAP PO SCH (18:19)
[2021-01-07 22:00] VITALS: BP 120/69
[2021-01-07] MEDS: ATORVASTATIN 20 MG TAB PO SCH (22:16)
[2021-01-08] MEDS: HYDROmorphone HCL 2 MG/ML VL IV PRN ×2 (01:12→16:23)
[2021-01-08] MEDS: ONDANSETRON HCL 4 MG/2 ML VIAL IV PRN ×2 (01:23→08:33)
[2021-01-08 05:00] VITALS: BP 117/63
[2021-01-08] MEDS: cefTRIAXone 1GM/50ML D5W 50 ML IV SCH (08:30)
[2021-01-08] MEDS: FINASTERIDE 5 MG TAB PO SCH (08:31)
[2021-01-08] MEDS: DIGOXIN 0.25 MG TAB PO SCH (08:31)
[2021-01-08] MEDS: PANTOPRAZOLE 40 MG TAB PO SCH ×2 (08:31→21:40)
[2021-01-08] MEDS: POLYETHYLENE GLYCOL 17 GM PWDR PO SCH (08:31)
[2021-01-08] MEDS: AMIODARONE HCL 200 MG TAB PO SCH ×2 (08:31→21:40)
[2021-01-08] MEDS: ENOXAPARIN SOD 40 MG/0.4 ML SYRINGE SC SCH (08:32)
[2021-01-08 09:00] VITALS: BP 122/60
[2021-01-08] MEDS: HYDROcodone-ACET 10/325MG TAB PO PRN ×2 (10:40→23:11)
[2021-01-08] MEDS ORDERED: LACTULOSE 20Gm/30ML SOLN PO PRN (12:15)
[2021-01-08] MEDS: SUCRALFATE 1 GM/10 ML ORAL SUSP PO SCH ×3 (12:30→21:39)
[2021-01-08 13:00] VITALS: BP 121/58
[2021-01-08] MEDS ORDERED: PROMETHAZINE HCL 25 MG/ML 1ML IM ONE (16:15)
[2021-01-08 17:00] VITALS: BP 126/69
[2021-01-08] MEDS: TAMSULOSIN HYDROCHLORIDE 0.4 MG CAP PO SCH (17:12)
[2021-01-08 18:53] LABS: Urine Bacteria NONE SEEN /hpf (None Seen); Urine Blood Negative /uL (Negative); Urine Specific Gravity 1.011 (1.001-1.035); Urine WBC <1 /hpf (0 - 3)
[2021-01-08] MEDS: ATORVASTATIN 20 MG TAB PO SCH (21:39)
[2021-01-08 22:00] VITALS: BP 113/59
[2021-01-09 05:00] VITALS: BP 119/56
[2021-01-09 05:43] LABS: Basophils # (auto) 0.1 10 ^3/uL (0-0.2); Eosinophils # (auto) 0.4 10 ^3/uL (0-0.8); Mean Corpuscular Volume 76.7 fL (80.0-100.0); Monocytes # (auto) 0.8 10 ^3/uL (0-1.3); White Blood Cell 9.2 10^3/uL (4.4-10.8)
[2021-01-09 05:51] LABS: Basophils % (auto) 1.3 % (0.0-2.0); Eosinophils % (auto) 4.1 % (0.0-7.0); Hematocrit 28.2 % (41.0-53.0); Hemoglobin 9.8 g/dL (13.5-17.5); Lymphocytes # (auto) 2.4 10 ^3/uL (0.4-5.4); Lymphocytes % (auto) 26.3 % (10.0-50.0); Mean Corpuscular Hemoglobin 26.7 pg (28.0-32.0); Mean Corpuscular Hgb Conc. 34.9 g/dL (32.0-36.0); Monocytes % (auto) 8.5 % (0.0-12.0); Neutrophils # (auto) 5.5 10 ^3/uL (1.6-8.6); Neutrophils % (auto) 59.8 % (37.0-80.0); Red Blood Cells 3.68 10^6/uL (4.5-5.90)
[2021-01-09 06:04] LABS: Calcium 9.1 mg/dL (8.5-10.1); Potassium 4.1 mmol/L (3.5-5.1)
[2021-01-09 06:07] LABS: BUN/Creatinine Ratio 16.9
[2021-01-09] MEDS: SUCRALFATE 1 GM/10 ML ORAL SUSP PO SCH ×4 (06:35→22:22)
[2021-01-09] MEDS: cefTRIAXone 1GM/50ML D5W 50 ML IV SCH (08:56)
[2021-01-09 09:00] VITALS: BP 90/39
[2021-01-09] MEDS: ENOXAPARIN SOD 40 MG/0.4 ML SYRINGE SC SCH (09:38)
[2021-01-09] MEDS: DIGOXIN 0.25 MG TAB PO SCH (09:38)
[2021-01-09] MEDS: POLYETHYLENE GLYCOL 17 GM PWDR PO SCH (09:39)
[2021-01-09] MEDS: AMIODARONE HCL 200 MG TAB PO SCH ×2 (09:39→23:32)
[2021-01-09] MEDS: FINASTERIDE 5 MG TAB PO SCH (09:39)
[2021-01-09] MEDS: PANTOPRAZOLE 40 MG TAB PO SCH ×2 (09:39→22:23)
[2021-01-09] MEDS: ONDANSETRON HCL 4 MG/2 ML VIAL IV PRN (10:20)
[2021-01-09 12:00] VITALS: BP 114/61
[2021-01-09] MEDS: SODIUM CHLORIDE 0.9% 1,000 ML IV SCH ×2 (12:27→23:24)
[2021-01-09] MEDS: HYDROmorphone HCL 2 MG/ML VL IV PRN ×2 (14:43→20:22)
[2021-01-09 16:42] VITALS: BP 106/62
[2021-01-09] MEDS: TAMSULOSIN HYDROCHLORIDE 0.4 MG CAP PO SCH (17:53)
[2021-01-09] MEDS: PROMETHAZINE HCL 25 MG/ML 1ML IV PRN (17:59)
[2021-01-09] MEDS: HYDROcodone-ACET 10/325MG TAB PO PRN (18:52)
[2021-01-09 22:00] VITALS: BP 101/57
[2021-01-09] MEDS: ATORVASTATIN 20 MG TAB PO SCH (22:23)
[2021-01-09 22:36] VITALS: BP 124/64
[2021-01-10 05:00] VITALS: BP 113/56
[2021-01-10] MEDS: SUCRALFATE 1 GM/10 ML ORAL SUSP PO SCH ×5 (06:34→21:56)
[2021-01-10 09:00] VITALS: BP 127/65
[2021-01-10] MEDS: DIGOXIN 0.25 MG TAB PO SCH (09:56)
[2021-01-10] MEDS: POLYETHYLENE GLYCOL 17 GM PWDR PO SCH (09:56)
[2021-01-10] MEDS: PANTOPRAZOLE 40 MG TAB PO SCH ×2 (09:56→21:55)
[2021-01-10] MEDS: AMIODARONE HCL 200 MG TAB PO SCH ×2 (09:56→21:55)
[2021-01-10] MEDS: FINASTERIDE 5 MG TAB PO SCH (09:56)
[2021-01-10] MEDS: ENOXAPARIN SOD 40 MG/0.4 ML SYRINGE SC SCH (09:57)
[2021-01-10] MEDS: HYDROmorphone HCL 2 MG/ML VL IV PRN ×2 (09:57→17:33)
[2021-01-10 13:00] VITALS: BP 126/53
[2021-01-10 16:37] VITALS: BP 138/64
[2021-01-10] MEDS: HYDROcodone-ACET 10/325MG TAB PO PRN ×2 (16:45→21:56)
[2021-01-10] MEDS: PROMETHAZINE HCL 25 MG/ML 1ML IV PRN (17:13)
[2021-01-10] MEDS: TAMSULOSIN HYDROCHLORIDE 0.4 MG CAP PO SCH (18:20)
[2021-01-10] MEDS: LORazepam 0.5 MG TAB PO PRN (18:21)
[2021-01-10] MEDS: ATORVASTATIN 20 MG TAB PO SCH (21:55)
[2021-01-10 22:00] VITALS: BP 141/77
[2021-01-11] MEDS: HYDROmorphone HCL 2 MG/ML VL IV PRN ×3 (01:16→22:41)
[2021-01-11 05:00] VITALS: BP 95/52
[2021-01-11] MEDS: SUCRALFATE 1 GM/10 ML ORAL SUSP PO SCH ×4 (06:15→22:31)
[2021-01-11 09:00] VITALS: BP 92/47
[2021-01-11] MEDS: AMIODARONE HCL 200 MG TAB PO SCH ×2 (09:06→22:32)
[2021-01-11] MEDS: FINASTERIDE 5 MG TAB PO SCH (09:07)
[2021-01-11] MEDS: POLYETHYLENE GLYCOL 17 GM PWDR PO SCH ×2 (09:07→09:19)
[2021-01-11] MEDS: DIGOXIN 0.25 MG TAB PO SCH (09:07)
[2021-01-11] MEDS: PANTOPRAZOLE 40 MG TAB PO SCH ×2 (09:08→22:31)
[2021-01-11] MEDS: ENOXAPARIN SOD 40 MG/0.4 ML SYRINGE SC SCH (09:08)
[2021-01-11] MEDS: PROMETHAZINE HCL 25 MG/ML 1ML IV PRN (09:09)
[2021-01-11 14:17] LABS: Basophils # (auto) 0.1 10 ^3/uL (0-0.2); Eosinophils # (auto) 0.4 10 ^3/uL (0-0.8); Monocytes # (auto) 0.7 10 ^3/uL (0-1.3)
[2021-01-11 14:19] LABS: Basophils % (auto) 1.1 % (0.0-2.0); Eosinophils % (auto) 4.5 % (0.0-7.0); Hemoglobin 10.6 g/dL (13.5-17.5); Lymphocytes # (auto) 2.3 10 ^3/uL (0.4-5.4); Lymphocytes % (auto) 28.4 % (10.0-50.0); Mean Corpuscular Hemoglobin 26.6 pg (28.0-32.0); Mean Corpuscular Hgb Conc. 34.2 g/dL (32.0-36.0); Mean Corpuscular Volume 77.7 fL (80.0-100.0); Monocytes % (auto) 8.3 % (0.0-12.0); Neutrophils # (auto) 4.8 10 ^3/uL (1.6-8.6); Neutrophils % (auto) 57.7 % (37.0-80.0); Red Blood Cells 3.98 10^6/uL (4.5-5.90); Red Cell Distribution Width 19.2 % (11.8-14.3); White Blood Cell 8.3 10^3/uL (4.4-10.8)
[2021-01-11 14:38] LABS: Potassium 4.1 mmol/L (3.5-5.1)
[2021-01-11 14:44] LABS: Albumin 2.7 g/dL (3.4-5.0); BUN/Creatinine Ratio 14.5; Bilirubin, Total 0.4 mg/dL (0.2-1.0); Calcium 9.1 mg/dL (8.5-10.1); Total Protein 5.8 g/dL (6.4-8.2)
[2021-01-11] MEDS: TAMSULOSIN HYDROCHLORIDE 0.4 MG CAP PO SCH (16:52)
[2021-01-11 17:00] VITALS: BP 108/56
[2021-01-11] MEDS: LORazepam 0.5 MG TAB PO PRN (18:54)
[2021-01-11 22:00] VITALS: BP 118/58
[2021-01-11] MEDS: ATORVASTATIN 20 MG TAB PO SCH (22:31)
[2021-01-12] VITALS (7 sets, daily range): BP systolic 100–130; BP diastolic 60–68
[2021-01-12] MEDS: LORazepam 0.5 MG TAB PO PRN (03:31)
[2021-01-12] MEDS: SUCRALFATE 1 GM/10 ML ORAL SUSP PO SCH ×4 (06:29→22:33)
[2021-01-12] MEDS: POLYETHYLENE GLYCOL 17 GM PWDR PO SCH (09:48)
[2021-01-12] MEDS: ENOXAPARIN SOD 40 MG/0.4 ML SYRINGE SC SCH (09:49)
[2021-01-12] MEDS: FINASTERIDE 5 MG TAB PO SCH (09:49)
[2021-01-12] MEDS: HYDROmorphone HCL 2 MG/ML VL IV PRN ×3 (09:50→21:43)
[2021-01-12] MEDS: AMIODARONE HCL 200 MG TAB PO SCH ×2 (09:52→22:32)
[2021-01-12] MEDS: PANTOPRAZOLE 40 MG TAB PO SCH ×2 (09:52→22:31)
[2021-01-12] MEDS: MECLIZINE HCL 25 MG TAB PO PRN (10:04)
[2021-01-12] MEDS: PROMETHAZINE HCL 25 MG/ML 1ML IV PRN (14:25)
[2021-01-12] MEDS: D5W/SOD CHL 0.45% 1,000 ML IV SCH (15:21)
[2021-01-12] MEDS: TAMSULOSIN HYDROCHLORIDE 0.4 MG CAP PO SCH (17:35)
[2021-01-12] MEDS: ATORVASTATIN 20 MG TAB PO SCH (22:31)
[2021-01-13] MEDS: PROMETHAZINE HCL 25 MG/ML 1ML IV PRN ×2 (03:55→09:53)
[2021-01-13] MEDS: HYDROmorphone HCL 2 MG/ML VL IV PRN ×3 (04:50→16:47)
[2021-01-13 05:00] VITALS: BP 122/72
[2021-01-13] MEDS: SUCRALFATE 1 GM/10 ML ORAL SUSP PO SCH ×4 (06:50→21:48)
[2021-01-13 06:55] LABS: Basophils # (auto) 0.1 10 ^3/uL (0-0.2); Basophils % (auto) 0.9 % (0.0-2.0); Eosinophils # (auto) 0.4 10 ^3/uL (0-0.8); Eosinophils % (auto) 4.1 % (0.0-7.0); Hematocrit 28.6 % (41.0-53.0); Hemoglobin 9.8 g/dL (13.5-17.5); Lymphocytes # (auto) 1.7 10 ^3/uL (0.4-5.4); Lymphocytes % (auto) 19.2 % (10.0-50.0); Mean Corpuscular Hemoglobin 26.4 pg (28.0-32.0); Mean Corpuscular Hgb Conc. 34.3 g/dL (32.0-36.0); Mean Corpuscular Volume 77.1 fL (80.0-100.0); Monocytes # (auto) 0.8 10 ^3/uL (0-1.3); Monocytes % (auto) 9.3 % (0.0-12.0); Neutrophils # (auto) 5.9 10 ^3/uL (1.6-8.6); Neutrophils % (auto) 66.5 % (37.0-80.0); Nucleated Red Blood Cells % 0.1 %; Red Blood Cells 3.71 10^6/uL (4.5-5.90); White Blood Cell 8.9 10^3/uL (4.4-10.8)
[2021-01-13 07:05] LABS: Potassium 3.7 mmol/L (3.5-5.1)
[2021-01-13 07:10] LABS: INR 1.1 (0.9-1.15); Partial Thromboplastin Time 28.8 sec (23.6-33.0)
[2021-01-13 07:25] LABS: Albumin 2.4 g/dL (3.4-5.0); BUN/Creatinine Ratio 11.6; Bilirubin, Total 0.4 mg/dL (0.2-1.0); Calcium 8.8 mg/dL (8.5-10.1); Magnesium 2.2 mg/dL (1.6-2.6); Phosphorus 2.2 mg/dL (2.5-4.90); Total Protein 5.5 g/dL (6.4-8.2)
[2021-01-13 08:00] VITALS: BP 133/65
[2021-01-13] MEDS: PANTOPRAZOLE 40 MG TAB PO SCH ×2 (09:22→21:49)
[2021-01-13] MEDS: MECLIZINE HCL 25 MG TAB PO PRN (09:22)
[2021-01-13] MEDS: FINASTERIDE 5 MG TAB PO SCH (09:22)
[2021-01-13] MEDS: ENOXAPARIN SOD 40 MG/0.4 ML SYRINGE SC SCH (09:23)
[2021-01-13] MEDS: POLYETHYLENE GLYCOL 17 GM PWDR PO SCH (09:23)
[2021-01-13] MEDS: AMIODARONE HCL 200 MG TAB PO SCH ×2 (09:25→21:49)
[2021-01-13 12:00] VITALS: BP 123/70
[2021-01-13] MEDS: D5W/SOD CHL 0.45% 1,000 ML IV SCH (12:14)
[2021-01-13 16:00] VITALS: BP 109/61
[2021-01-13] MEDS: METOCLOPRAMIDE HCL 5MG/ml INJ 2ml VIAL IV PRN (16:56)
[2021-01-13] MEDS: TAMSULOSIN HYDROCHLORIDE 0.4 MG CAP PO SCH (18:03)
[2021-01-13] MEDS: ATORVASTATIN 20 MG TAB PO SCH (21:49)
[2021-01-13 22:00] VITALS: BP 116/58
[2021-01-14] MEDS: METOCLOPRAMIDE HCL 5MG/ml INJ 2ml VIAL IV PRN ×3 (01:12→18:14)
[2021-01-14] MEDS: HYDROcodone-ACET 10/325MG TAB PO PRN (03:52)
[2021-01-14 05:00] VITALS: BP 125/59
[2021-01-14] MEDS ORDERED: MONT5CHW23 PO (05:56)
[2021-01-14] MEDS ORDERED: QUET50TA PO (05:56)
[2021-01-14] MEDS ORDERED: CHOL20007 OR (05:56)
[2021-01-14] MEDS ORDERED: SERT100T PO (05:56)
[2021-01-14] MEDS: D5W/SOD CHL 0.45% 1,000 ML IV SCH (06:48)
[2021-01-14] MEDS: SUCRALFATE 1 GM/10 ML ORAL SUSP PO SCH ×4 (06:53→21:29)
[2021-01-14 09:00] VITALS: BP 132/66
[2021-01-14] MEDS: AMIODARONE HCL 200 MG TAB PO SCH (09:41)
[2021-01-14] MEDS: PANTOPRAZOLE 40 MG TAB PO SCH (09:42)
[2021-01-14] MEDS: ENOXAPARIN SOD 40 MG/0.4 ML SYRINGE SC SCH (09:42)
[2021-01-14] MEDS: FINASTERIDE 5 MG TAB PO SCH (09:42)
[2021-01-14] MEDS: POLYETHYLENE GLYCOL 17 GM PWDR PO SCH (09:42)
[2021-01-14] MEDS: HYDROmorphone HCL 2 MG/ML VL IV PRN (09:44)
[2021-01-14 13:00] VITALS: BP 132/68
[2021-01-14 17:00] VITALS: BP 151/76
[2021-01-14] MEDS: TAMSULOSIN HYDROCHLORIDE 0.4 MG CAP PO SCH (18:00)
[2021-01-14] MEDS: ATORVASTATIN 20 MG TAB PO SCH (21:30)
[2021-01-14] MEDS: MORPHINE SULFATE INJECTION 2 MG/ML SYRG IV PRN (21:31)
[2021-01-14 22:00] VITALS: BP 132/69
[2021-01-15] MEDS: D5W/SOD CHL 0.45%/KCL 20MEQ 1,000 ML IV SCH ×2 (04:35→14:39)
[2021-01-15 05:00] VITALS: BP 130/75
[2021-01-15] MEDS: SUCRALFATE 1 GM/10 ML ORAL SUSP PO SCH ×5 (06:36→21:29)
[2021-01-15] MEDS: MORPHINE SULFATE INJECTION 2 MG/ML SYRG IV PRN ×2 (06:43→17:16)
[2021-01-15 09:00] VITALS: BP 138/67
[2021-01-15] MEDS: POLYETHYLENE GLYCOL 17 GM PWDR PO SCH (09:20)
[2021-01-15] MEDS: FINASTERIDE 5 MG TAB PO SCH (09:20)
[2021-01-15] MEDS: AMIODARONE HCL 200 MG TAB PO SCH (09:20)
[2021-01-15] MEDS: ENOXAPARIN SOD 40 MG/0.4 ML SYRINGE SC SCH (09:21)
[2021-01-15] MEDS ORDERED: PANTOPRAZOLE 40 MG TAB PO SCH (10:00)
[2021-01-15 12:59] VITALS: BP 131/69
[2021-01-15] MEDS: METOCLOPRAMIDE HCL 5MG/ml INJ 2ml VIAL IV PRN (13:09)
[2021-01-15] MEDS ORDERED: CLINIMIX PER PHARMACY 0 ML IV SCH (13:30)
[2021-01-15] MEDS ORDERED: PANTOPRAZOLE 40 MG/10 ML VIAL INJ IV ONE (13:30)
[2021-01-15] MEDS: LORazepam 2MG/ML-1ML VIAL IV PRN (14:39)
[2021-01-15 15:13] LABS: Albumin 2.5 g/dL (3.4-5.0); Calcium 9.1 mg/dL (8.5-10.1); Magnesium 2.1 mg/dL (1.6-2.6); Potassium 3.4 mmol/L (3.5-5.1)
[2021-01-15 15:17] LABS: BUN/Creatinine Ratio 10.6; Bilirubin, Total 0.5 mg/dL (0.2-1.0); Total Protein 5.5 g/dL (6.4-8.2)
[2021-01-15] MEDS ORDERED: POTASSIUM PHOSP 22MEQ(15MMOLE) in NS 100 ML IV ONE (16:00)
[2021-01-15 17:00] VITALS: BP 140/69
[2021-01-15] MEDS: TAMSULOSIN HYDROCHLORIDE 0.4 MG CAP PO SCH (17:16)
[2021-01-15] MEDS ORDERED: AMINO ACID INFUSION IN D10W 1,000 ML IV NR (20:00)
[2021-01-15] MEDS: ATORVASTATIN 20 MG TAB PO SCH (21:29)
[2021-01-15 22:00] VITALS: BP 137/58
[2021-01-16] MEDS ORDERED: DEXTROSE (50%) 50ML SYRG IV SCH
[2021-01-16] MEDS: InsuLIN REG 1unit/0.01ml Soln (100units/ml) SC SCH ×4 (00:34→17:37)
[2021-01-16 05:00] VITALS: BP 126/65
[2021-01-16] MEDS: SUCRALFATE 1 GM/10 ML ORAL SUSP PO SCH ×4 (06:15→22:00)
[2021-01-16] MEDS: ACCU-CHEK COMFORT CURVE STRIP VI SCH ×4 (06:26→17:38)
[2021-01-16 06:49] LABS: Basophils # (auto) 0.1 10 ^3/uL (0-0.2); Eosinophils # (auto) 0.3 10 ^3/uL (0-0.8); Monocytes # (auto) 0.8 10 ^3/uL (0-1.3); Monocytes % (auto) 7.8 % (0.0-12.0)
[2021-01-16 06:52] LABS: Basophils % (auto) 0.6 % (0.0-2.0); Eosinophils % (auto) 2.7 % (0.0-7.0); Hematocrit 30.7 % (41.0-53.0); Hemoglobin 10.4 g/dL (13.5-17.5); Lymphocytes % (auto) 29.7 % (10.0-50.0); Mean Corpuscular Hemoglobin 26.1 pg (28.0-32.0); Mean Corpuscular Hgb Conc. 33.8 g/dL (32.0-36.0); Mean Corpuscular Volume 77.1 fL (80.0-100.0); Neutrophils % (auto) 59.2 % (37.0-80.0); Red Blood Cells 3.99 10^6/uL (4.5-5.90); Red Cell Distribution Width 18.6 % (11.8-14.3); White Blood Cell 10.1 10^3/uL (4.4-10.8)
[2021-01-16 06:58] LABS: Potassium 3.3 mmol/L (3.5-5.1)
[2021-01-16 07:07] LABS: Albumin 2.6 g/dL (3.4-5.0); BUN/Creatinine Ratio 10.5; Bilirubin, Total 0.6 mg/dL (0.2-1.0); Calcium 8.9 mg/dL (8.5-10.1); Magnesium 1.9 mg/dL (1.6-2.6); Phosphorus 1.9 mg/dL (2.5-4.90); Pre Albumin 12.6 mg/dL (20.0-40.0); Total Protein 5.6 g/dL (6.4-8.2)
[2021-01-16] MEDS: AMIODARONE HCL 200 MG TAB PO SCH (08:11)
[2021-01-16] MEDS: FINASTERIDE 5 MG TAB PO SCH (08:11)
[2021-01-16] MEDS: POLYETHYLENE GLYCOL 17 GM PWDR PO SCH (08:11)
[2021-01-16] MEDS: ENOXAPARIN SOD 40 MG/0.4 ML SYRINGE SC SCH (08:12)
[2021-01-16] MEDS: MORPHINE SULFATE INJECTION 2 MG/ML SYRG IV PRN ×2 (08:13→23:16)
[2021-01-16] MEDS: ONDANSETRON HCL 4 MG/2 ML VIAL IV PRN ×2 (08:13→20:20)
[2021-01-16] MEDS ORDERED: LIDOCAINE VISCOUS 2% 15ML UD ONE (08:31)
[2021-01-16] MEDS ORDERED: diphenhdrAMINE HCL 50 MG/1 ML VL ONE (08:32)
[2021-01-16] MEDS ORDERED: POTASSIUM PHOSPHATE 44 MEQ in D5W 5% 250 ML IV ONE (08:45)
[2021-01-16 09:00] VITALS: BP 136/79
[2021-01-16] MEDS: D5W/SOD CHL 0.45%/KCL 20MEQ 1,000 ML IV SCH ×2 (09:30→14:42)
[2021-01-16] MEDS: PANTOPRAZOLE 40 MG/10 ML VIAL INJ IV SCH (11:22)
[2021-01-16] MEDS: fentaNYL CITRATE 100 MCG/2 ML VL ONE ×2 (13:28→13:31)
[2021-01-16] MEDS: MIDAZOLAM HCL 5 MG/ML-1ML VIAL ONE ×2 (13:28→13:31)
[2021-01-16 14:48] VITALS: BP 117/59
[2021-01-16 16:00] VITALS: BP 141/67
[2021-01-16] MEDS: TAMSULOSIN HYDROCHLORIDE 0.4 MG CAP PO SCH (17:50)
[2021-01-16] MEDS ORDERED: AMINO ACID INFUSION IN D10W 1,000 ML IV NR (20:00)
[2021-01-16 22:00] VITALS: BP 146/71
[2021-01-16] MEDS: ATORVASTATIN 20 MG TAB PO SCH (22:00)
[2021-01-17 05:00] VITALS: BP 147/72
[2021-01-17] MEDS: InsuLIN REG 1unit/0.01ml Soln (100units/ml) SC SCH ×4 (06:00→17:11)
[2021-01-17] MEDS: ACCU-CHEK COMFORT CURVE STRIP VI SCH ×4 (06:00→17:11)
[2021-01-17 06:48] LABS: Potassium 3.6 mmol/L (3.5-5.1)
[2021-01-17] MEDS: SUCRALFATE 1 GM/10 ML ORAL SUSP PO SCH (06:51)
[2021-01-17] MEDS: MORPHINE SULFATE INJECTION 2 MG/ML SYRG IV PRN ×3 (06:51→19:55)
[2021-01-17] MEDS: ONDANSETRON HCL 4 MG/2 ML VIAL IV PRN ×3 (06:51→21:55)
[2021-01-17 06:56] LABS: Albumin 2.5 g/dL (3.4-5.0); Bilirubin, Total 0.5 mg/dL (0.2-1.0); Calcium 8.6 mg/dL (8.5-10.1); Magnesium 1.8 mg/dL (1.6-2.6); Phosphorus 2.9 mg/dL (2.5-4.90); Total Protein 5.5 g/dL (6.4-8.2)
[2021-01-17] MEDS: D5W/SOD CHL 0.45%/KCL 20MEQ 1,000 ML IV SCH (08:30)
[2021-01-17 09:00] VITALS: BP 143/80
[2021-01-17] MEDS: PANTOPRAZOLE 40 MG/10 ML VIAL INJ IV SCH (11:15)
[2021-01-17] MEDS: POLYETHYLENE GLYCOL 17 GM PWDR PO SCH (11:15)
[2021-01-17] MEDS: FINASTERIDE 5 MG TAB PO SCH (11:15)
[2021-01-17] MEDS: ENOXAPARIN SOD 40 MG/0.4 ML SYRINGE SC SCH (11:15)
[2021-01-17] MEDS: AMIODARONE HCL 200 MG TAB PO SCH (11:18)
[2021-01-17] MEDS ORDERED: traMADol HCL 50 MG TAB PO PRN (11:30)
[2021-01-17 13:00] VITALS: BP 146/69
[2021-01-17 17:00] VITALS: BP 158/92
[2021-01-17] MEDS: TAMSULOSIN HYDROCHLORIDE 0.4 MG CAP PO SCH (17:10)
[2021-01-17] MEDS ORDERED: AMINO ACID INFUSION IN D10W 1,000 ML IV NR (20:00)
[2021-01-17 22:00] VITALS: BP 137/69
[2021-01-17] MEDS: ATORVASTATIN 20 MG TAB PO SCH (22:08)
[2021-01-18] MEDS: ONDANSETRON HCL 4 MG/2 ML VIAL IV PRN ×2 (01:58→06:10)
[2021-01-18] MEDS: MORPHINE SULFATE INJECTION 2 MG/ML SYRG IV PRN ×2 (01:58→06:10)
[2021-01-18] MEDS: D5W/SOD CHL 0.45%/KCL 20MEQ 1,000 ML IV SCH (04:30)
[2021-01-18] MEDS: LORazepam 2MG/ML-1ML VIAL IV PRN ×2 (04:57→17:42)
[2021-01-18 05:00] VITALS: BP 132/88
[2021-01-18 05:46] LABS: Albumin 2.3 g/dL (3.4-5.0); Calcium 8.5 mg/dL (8.5-10.1); Magnesium 1.7 mg/dL (1.6-2.6); Potassium 3.5 mmol/L (3.5-5.1)
[2021-01-18 05:51] LABS: Bilirubin, Total 0.4 mg/dL (0.2-1.0); Phosphorus 2.2 mg/dL (2.5-4.90); Total Protein 5.3 g/dL (6.4-8.2)
[2021-01-18] MEDS: InsuLIN REG 1unit/0.01ml Soln (100units/ml) SC SCH ×5 (06:00→23:31)
[2021-01-18] MEDS: ACCU-CHEK COMFORT CURVE STRIP VI SCH ×5 (06:00→23:30)
[2021-01-18 09:00] VITALS: BP 132/66
[2021-01-18] MEDS: POLYETHYLENE GLYCOL 17 GM PWDR PO SCH ×2 (10:00→10:39)
[2021-01-18] MEDS: FINASTERIDE 5 MG TAB PO SCH (10:39)
[2021-01-18] MEDS: AMIODARONE HCL 200 MG TAB PO SCH (10:39)
[2021-01-18] MEDS: PANTOPRAZOLE 40 MG/10 ML VIAL INJ IV SCH (10:40)
[2021-01-18] MEDS: ENOXAPARIN SOD 40 MG/0.4 ML SYRINGE SC SCH (10:40)
[2021-01-18] MEDS ORDERED: POTASSIUM PHOSP 22MEQ(15MMOLE) in NS 100 ML IV ONE (11:30)
[2021-01-18 13:00] VITALS: BP 135/72
[2021-01-18] MEDS: HYDROcodone-ACET 10/325MG TAB PO PRN (15:44)
[2021-01-18] MEDS: KETOROLAC TROMETH 30 MG/ML 1ML VIAL IV PRN (15:54)
[2021-01-18 17:00] VITALS: BP 137/72
[2021-01-18] MEDS ORDERED: NEUTRA-PHOS TABLET PO ONE (17:30)
[2021-01-18] MEDS: TAMSULOSIN HYDROCHLORIDE 0.4 MG CAP PO SCH (17:42)
[2021-01-18] MEDS: NEUTRA-PHOS TABLET PO SCH (18:10)
[2021-01-18] MEDS ORDERED: AMINO ACID INFUSION IN D10W 1,000 ML IV NR (20:00)
[2021-01-18 21:31] VITALS: BP 126/77
[2021-01-18 21:37] VITALS: BP 127/71
[2021-01-18] MEDS: ATORVASTATIN 20 MG TAB PO SCH (21:54)
[2021-01-18] MEDS ORDERED: TEMAZEPAM 15 MG CAP PO ONE (23:15)
[2021-01-19] MEDS: D5W/SOD CHL 0.45%/KCL 20MEQ 1,000 ML IV SCH ×2 (00:47→22:55)
[2021-01-19] MEDS: KETOROLAC TROMETH 30 MG/ML 1ML VIAL IV PRN (00:55)
[2021-01-19] MEDS: ONDANSETRON HCL 4 MG/2 ML VIAL IV PRN ×2 (00:58→09:07)
[2021-01-19] MEDS: MORPHINE SULFATE INJECTION 2 MG/ML SYRG IV PRN ×3 (03:44→22:55)
[2021-01-19 04:42] VITALS: BP 129/74
[2021-01-19 05:18] LABS: Eosinophils # (auto) 0.4 10 ^3/uL (0-0.8); Hematocrit 27.2 % (41.0-53.0); Monocytes # (auto) 0.7 10 ^3/uL (0-1.3); White Blood Cell 7.5 10^3/uL (4.4-10.8)
[2021-01-19 05:20] LABS: Basophils # (auto) 0 10 ^3/uL (0-0.2); Basophils % (auto) 0.7 % (0.0-2.0); Eosinophils % (auto) 5.4 % (0.0-7.0); Hemoglobin 9.3 g/dL (13.5-17.5); Lymphocytes % (auto) 27.1 % (10.0-50.0); Mean Corpuscular Hemoglobin 26.3 pg (28.0-32.0); Mean Corpuscular Hgb Conc. 34.1 g/dL (32.0-36.0); Mean Corpuscular Volume 77.2 fL (80.0-100.0); Monocytes % (auto) 9.2 % (0.0-12.0); Neutrophils # (auto) 4.3 10 ^3/uL (1.6-8.6); Neutrophils % (auto) 57.6 % (37.0-80.0); Nucleated Red Blood Cells % 0.1 %; Red Blood Cells 3.53 10^6/uL (4.5-5.90); Red Cell Distribution Width 18.1 % (11.8-14.3)
[2021-01-19 05:40] LABS: INR 1.17 (0.9-1.15); Partial Thromboplastin Time 29.5 sec (23.6-33.0)
[2021-01-19 05:59] LABS: Potassium 3.6 mmol/L (3.5-5.1)
[2021-01-19] MEDS: InsuLIN REG 1unit/0.01ml Soln (100units/ml) SC SCH ×4 (06:00→23:53)
[2021-01-19] MEDS: ACCU-CHEK COMFORT CURVE STRIP VI SCH ×4 (06:07→23:53)
[2021-01-19] MEDS: HYDROcodone-ACET 10/325MG TAB PO PRN (06:08)
[2021-01-19 06:17] LABS: Albumin 2.1 g/dL (3.4-5.0); Calcium 7.9 mg/dL (8.5-10.1); Magnesium 1.6 mg/dL (1.6-2.6)
[2021-01-19 06:22] LABS: Bilirubin, Total 0.5 mg/dL (0.2-1.0); Phosphorus 2.5 mg/dL (2.5-4.90)
[2021-01-19] MEDS: NEUTRA-PHOS TABLET PO SCH ×3 (07:59→18:06)
[2021-01-19 09:00] VITALS: BP 116/65
[2021-01-19] MEDS: POLYETHYLENE GLYCOL 17 GM PWDR PO SCH (10:17)
[2021-01-19] MEDS: FINASTERIDE 5 MG TAB PO SCH (10:17)
[2021-01-19] MEDS: PANTOPRAZOLE 40 MG/10 ML VIAL INJ IV SCH (10:17)
[2021-01-19] MEDS: ENOXAPARIN SOD 40 MG/0.4 ML SYRINGE SC SCH (10:17)
[2021-01-19] MEDS: AMIODARONE HCL 200 MG TAB PO SCH (10:18)
[2021-01-19] MEDS ORDERED: MAGNESIUM SULFATE 1GM/100ML 100 ML IV ONE (12:15)
[2021-01-19] MEDS ORDERED: LORazepam 2MG/ML-1ML VIAL IV ONE (12:30)
[2021-01-19] MEDS ORDERED: MECLIZINE HCL 25 MG TAB PO PRN (12:30)
[2021-01-19 13:00] VITALS: BP 95/53
[2021-01-19 17:00] VITALS: BP 130/67
[2021-01-19] MEDS: TAMSULOSIN HYDROCHLORIDE 0.4 MG CAP PO SCH (18:05)
[2021-01-19] MEDS ORDERED: AMINO ACID INFUSION IN D10W 1,000 ML IV NR (20:00)
[2021-01-19] MEDS: ATORVASTATIN 20 MG TAB PO SCH (21:58)
[2021-01-19 22:00] VITALS: BP 149/69
[2021-01-20] MEDS: MORPHINE SULFATE INJECTION 2 MG/ML SYRG IV PRN ×3 (03:11→22:24)
[2021-01-20 05:00] VITALS: BP 135/76
[2021-01-20 05:58] LABS: Basophils # (auto) 0.1 10 ^3/uL (0-0.2); Basophils % (auto) 1.1 % (0.0-2.0); Eosinophils # (auto) 0.4 10 ^3/uL (0-0.8); Hemoglobin 9.8 g/dL (13.5-17.5); Lymphocytes # (auto) 1.7 10 ^3/uL (0.4-5.4); Monocytes # (auto) 0.7 10 ^3/uL (0-1.3); Neutrophils # (auto) 4.3 10 ^3/uL (1.6-8.6); White Blood Cell 7.1 10^3/uL (4.4-10.8)
[2021-01-20] MEDS: InsuLIN REG 1unit/0.01ml Soln (100units/ml) SC SCH ×2 (06:00→12:00)
[2021-01-20 06:01] LABS: Eosinophils % (auto) 5.6 % (0.0-7.0); Hematocrit 29.3 % (41.0-53.0); Lymphocytes % (auto) 24.1 % (10.0-50.0); Mean Corpuscular Hemoglobin 25.9 pg (28.0-32.0); Mean Corpuscular Hgb Conc. 33.4 g/dL (32.0-36.0); Mean Corpuscular Volume 77.6 fL (80.0-100.0); Monocytes % (auto) 9.4 % (0.0-12.0); Neutrophils % (auto) 59.8 % (37.0-80.0); Red Blood Cells 3.77 10^6/uL (4.5-5.90); Red Cell Distribution Width 18.1 % (11.8-14.3)
[2021-01-20 06:14] LABS: INR 1.12 (0.9-1.15); Partial Thromboplastin Time 31.8 sec (23.6-33.0)
[2021-01-20] MEDS: ACCU-CHEK COMFORT CURVE STRIP VI SCH ×2 (06:17→12:15)
[2021-01-20 06:18] LABS: Albumin 2.3 g/dL (3.4-5.0); Calcium 8.3 mg/dL (8.5-10.1); Magnesium 1.8 mg/dL (1.6-2.6); Potassium 3.7 mmol/L (3.5-5.1)
[2021-01-20 06:20] LABS: BUN/Creatinine Ratio 15.6
[2021-01-20 06:23] LABS: Bilirubin, Total 0.5 mg/dL (0.2-1.0); Total Protein 5.3 g/dL (6.4-8.2)
[2021-01-20] MEDS: PANTOPRAZOLE 40 MG/10 ML VIAL INJ IV SCH (08:26)
[2021-01-20] MEDS: POLYETHYLENE GLYCOL 17 GM PWDR PO SCH (08:26)
[2021-01-20] MEDS: NEUTRA-PHOS TABLET PO SCH ×3 (08:26→18:02)
[2021-01-20] MEDS: ENOXAPARIN SOD 40 MG/0.4 ML SYRINGE SC SCH (08:27)
[2021-01-20] MEDS: FINASTERIDE 5 MG TAB PO SCH (08:27)
[2021-01-20] MEDS: AMIODARONE HCL 200 MG TAB PO SCH (08:27)
[2021-01-20 10:01] VITALS: BP 143/76
[2021-01-20 13:00] VITALS: BP 122/65
[2021-01-20] MEDS: MECLIZINE HCL 25 MG TAB PO SCH ×2 (14:11→22:23)
[2021-01-20 17:00] VITALS: BP 105/62
[2021-01-20] MEDS: TAMSULOSIN HYDROCHLORIDE 0.4 MG CAP PO SCH (18:02)
[2021-01-20 22:00] VITALS: BP 114/66
[2021-01-20] MEDS: ATORVASTATIN 20 MG TAB PO SCH (22:23)
[2021-01-21] MEDS: MORPHINE SULFATE INJECTION 2 MG/ML SYRG IV PRN ×2 (03:50→08:15)
[2021-01-21 05:00] VITALS: BP 148/77
[2021-01-21] MEDS: MECLIZINE HCL 25 MG TAB PO SCH ×3 (06:10→21:03)
[2021-01-21] MEDS: PANTOPRAZOLE 40 MG TAB PO SCH (08:14)
[2021-01-21] MEDS: POLYETHYLENE GLYCOL 17 GM PWDR PO SCH (08:14)
[2021-01-21] MEDS: AMIODARONE HCL 200 MG TAB PO SCH (08:14)
[2021-01-21] MEDS: FINASTERIDE 5 MG TAB PO SCH (08:14)
[2021-01-21] MEDS: NEUTRA-PHOS TABLET PO SCH ×3 (08:15→17:30)
[2021-01-21] MEDS: ENOXAPARIN SOD 40 MG/0.4 ML SYRINGE SC SCH (08:16)
[2021-01-21 09:00] VITALS: BP 141/76
[2021-01-21] MEDS: ONDANSETRON HCL 4 MG/2 ML VIAL IV PRN (12:04)
[2021-01-21 13:00] VITALS: BP_SYST 134; BP_DIAS 70; BP_DIAS 90
[2021-01-21 17:00] VITALS: BP 121/63
[2021-01-21] MEDS: TAMSULOSIN HYDROCHLORIDE 0.4 MG CAP PO SCH (17:30)
[2021-01-21] MEDS: ATORVASTATIN 20 MG TAB PO SCH (21:03)
[2021-01-21 22:00] VITALS: BP 136/74
[2021-01-22] MEDS: KETOROLAC TROMETH 30 MG/ML 1ML VIAL IV PRN (00:26)
[2021-01-22] MEDS: ONDANSETRON HCL 4 MG/2 ML VIAL IV PRN (00:26)
[2021-01-22 05:00] VITALS: BP 143/79
[2021-01-22] MEDS: LORazepam 2MG/ML-1ML VIAL IV PRN (05:07)
[2021-01-22] MEDS: MECLIZINE HCL 25 MG TAB PO SCH ×2 (05:07→14:00)
[2021-01-22] MEDS: NEUTRA-PHOS TABLET PO SCH ×2 (08:00→12:00)
[2021-01-22 09:00] VITALS: BP 135/77
[2021-01-22] MEDS: PANTOPRAZOLE 40 MG TAB PO SCH (09:57)
[2021-01-22] MEDS: AMIODARONE HCL 200 MG TAB PO SCH (09:57)
[2021-01-22] MEDS: FINASTERIDE 5 MG TAB PO SCH (09:57)
[2021-01-22] MEDS: POLYETHYLENE GLYCOL 17 GM PWDR PO SCH (09:58)
[2021-01-22] MEDS: ENOXAPARIN SOD 40 MG/0.4 ML SYRINGE SC SCH (09:58)
[2021-01-22 13:00] VITALS: BP 133/72
== END 2021-01-22 16:30 | disposition home health service (06) | DRG 467 ==
LOC: ER 14:16 → TELE 18:44 → TELE-WESTW 12-25 18:13 → WEST WING 01-07 11:25
PROVIDERS: ADMIT Nurse Practitioner Acute Care; ATTEND Internal Medicine
PROC: 0SPB0JZ Removal of Synthetic Substitute from Left Hip Joint, Open Approach (ICD-10-PCS; 2020-12-27)
PROC: 0SRB06Z Replacement of Left Hip Joint with Oxidized Zirconium on Polyethylene Synthetic Substitute, Open Approach (ICD-10-PCS; principal; 2020-12-27 12:09)
PROC: 30233N1 Transfusion of Nonautologous Red Blood Cells into Peripheral Vein, Percutaneous Approach (ICD-10-PCS; 2020-12-29)
PROC: 0SRB06Z Replacement of Left Hip Joint with Oxidized Zirconium on Polyethylene Synthetic Substitute, Open Approach (ICD-10-PCS; 2020-12-31)
PROC: 0SPB0JZ Removal of Synthetic Substitute from Left Hip Joint, Open Approach (ICD-10-PCS; 2020-12-31)
PROC: 0DJ08ZZ Inspection of Upper Intestinal Tract, Via Natural or Artificial Opening Endoscopic (ICD-10-PCS; 2021-01-16)
DX: T84.021A Dislocation of internal left hip prosthesis, initial encounter (principal); E44.0 Moderate protein-calorie malnutrition; N30.00 Acute cystitis without hematuria; D64.9 Anemia, unspecified; I25.10 Atherosclerotic heart disease of native coronary artery without angina pectoris; G89.4 Chronic pain syndrome; T46.0X5A Adverse effect of cardiac-stimulant glycosides and drugs of similar action, initial encounter; N18.31 Chronic kidney disease, stage 3a; K59.00 Constipation, unspecified; E78.5 Hyperlipidemia, unspecified; I48.91 Unspecified atrial fibrillation; I12.9 Hypertensive chronic kidney disease with stage 1 through stage 4 chronic kidney disease, or unspecified chronic kidney disease; I44.1 Atrioventricular block, second degree; M17.12 Unilateral primary osteoarthritis, left knee; Z20.822 Contact with and (suspected) exposure to COVID-19; Y83.8 Other surgical procedures as the cause of abnormal reaction of the patient, or of later complication, without mention of misadventure at the time of the procedure; Y92.89 Other specified places as the place of occurrence of the external cause; Z68.21 Body mass index [BMI] 21.0-21.9, adult; Z74.01 Bed confinement status; Z79.82 Long term (current) use of aspirin; Z79.899 Other long term (current) drug therapy; Z80.0 Family history of malignant neoplasm of digestive organs; Z95.5 Presence of coronary angioplasty implant and graft; Z80.42 Family history of malignant neoplasm of prostate
CPT/HCPCS: 36415; 71045; 72170; 72192; 73502; 73706; 74176; 76705; 78264; 80048; 80053; 80162; 81001; 82040; 82962; 83690; 83735; 83835; 83880; 84100; 84443; 84478; 84484; 85014; 85018; 85025; 85610; 85730; 86850; 86900; 86901; 86920; 87081; 87426; 93005; 96374; 97110; 97163; 97530; A4565; C9113; G0378; J0171; J0330; J0690; J0696; J1100; J1815; J1885; J2001; J2250; J2405; J2704; J7060

== ENCOUNTER 2021-04-08 01:51 | Inpatient (IN) | payer OTHER ==
[2021-04-08] VITALS (9 sets, daily range): BP systolic 111–145; BP diastolic 64–90
[~2021-04-08] VITALS: Ht 185.4 cm; Wt 73.5 kg
[~2021-04-08 01:51] MED LIST changes: -B-CO-15 PO; +CHOL20007 OR; -FER325T PO; -LACTCAP35 PO; +LORA0.5T20 PO; +MONT5CHW23 PO; -POLY33504 PO; +QUET50TA PO; +SENN1TAB14 PO; +SERT100T PO
[2021-04-08] MEDS ORDERED: SODIUM CHLORIDE 0.9% 1,000 ML IV SCH (05:45)
[2021-04-08 06:06] LABS: Basophils # (auto) 0 10 ^3/uL (0-0.2); Basophils % (auto) 0.1 % (0.0-2.0); Eosinophils # (auto) 0 10 ^3/uL (0-0.8); Hemoglobin 13.4 g/dL (13.5-17.5); Lymphocytes # (auto) 1.5 10 ^3/uL (0.4-5.4); Lymphocytes % (auto) 11.3 % (10.0-50.0); Mean Corpuscular Hemoglobin 26.3 pg (28.0-32.0); Mean Corpuscular Hgb Conc. 34.4 g/dL (32.0-36.0); Mean Corpuscular Volume 76.3 fL (80.0-100.0); Monocytes # (auto) 1.4 10 ^3/uL (0-1.3); Monocytes % (auto) 10.5 % (0.0-12.0); Neutrophils # (auto) 10.6 10 ^3/uL (1.6-8.6); Neutrophils % (auto) 78.1 % (37.0-80.0); Red Blood Cells 5.12 10^6/uL (4.5-5.90); White Blood Cell 13.6 10^3/uL (4.4-10.8)
[2021-04-08 06:24] LABS: INR 1.09 (0.9-1.15); Partial Thromboplastin Time 28.6 sec (23.6-33.0)
[2021-04-08 06:37] LABS: Albumin 3.2 g/dL (3.4-5.0); Calcium 9.7 mg/dL (8.5-10.1); Potassium 4.7 mmol/L (3.5-5.1)
[2021-04-08 06:39] LABS: BUN/Creatinine Ratio 23.7
[2021-04-08 06:42] LABS: Bilirubin, Total 0.6 mg/dL (0.2-1.0); Total Protein 6.4 g/dL (6.4-8.2)
[2021-04-08 06:44] LABS: Urine Bacteria NONE SEEN /hpf (None Seen); Urine Blood Negative /uL (Negative); Urine Specific Gravity 1.016 (1.001-1.035); Urine WBC <1 /hpf (0 - 3)
[2021-04-08] MEDS ORDERED: GASTROGRAFIN 120 ML SOL ONE (07:40)
[2021-04-08] MEDS: PANTOPRAZOLE 40 MG/10 ML VIAL INJ IV SCH (08:46)
[2021-04-08] MEDS: ONDANSETRON HCL 4 MG/2 ML VIAL IV PRN ×2 (08:46→15:29)
[2021-04-08] MEDS ORDERED: levoFLOXacin 500MG 100 ML IV ONE (10:30)
[2021-04-08] MEDS: SODIUM CHLORIDE 0.9% 1,000 ML IV SCH ×2 (10:46→20:15)
[2021-04-08] MEDS: metroNIDAZOLE 500MG/100ML 100 ML IV SCH ×2 (15:10→23:25)
[2021-04-09] MEDS: MORPHINE SULFATE INJECTION 2 MG/ML SYRG IV PRN (00:02)
[2021-04-09] MEDS: ONDANSETRON HCL 4 MG/2 ML VIAL IV PRN (00:03)
[2021-04-09 05:00] VITALS: BP 106/70
[2021-04-09] MEDS: SODIUM CHLORIDE 0.9% 1,000 ML IV SCH ×2 (06:15→09:55)
[2021-04-09] MEDS: metroNIDAZOLE 500MG/100ML 100 ML IV SCH ×3 (06:32→22:34)
[2021-04-09 07:42] LABS: Eosinophils # (auto) 0 10 ^3/uL (0-0.8)
[2021-04-09 07:44] LABS: Basophils # (auto) 0 10 ^3/uL (0-0.2); Basophils % (auto) 0.1 % (0.0-2.0); Hematocrit 36.8 % (41.0-53.0); Hemoglobin 12.3 g/dL (13.5-17.5); Lymphocytes # (auto) 1.6 10 ^3/uL (0.4-5.4); Lymphocytes % (auto) 11.6 % (10.0-50.0); Mean Corpuscular Hemoglobin 25.5 pg (28.0-32.0); Mean Corpuscular Hgb Conc. 33.4 g/dL (32.0-36.0); Mean Corpuscular Volume 76.3 fL (80.0-100.0); Monocytes # (auto) 1.1 10 ^3/uL (0-1.3); Monocytes % (auto) 7.9 % (0.0-12.0); Neutrophils # (auto) 11.3 10 ^3/uL (1.6-8.6); Neutrophils % (auto) 80.4 % (37.0-80.0); Red Blood Cells 4.82 10^6/uL (4.5-5.90); Red Cell Distribution Width 15.8 % (11.8-14.3)
[2021-04-09 07:58] LABS: Calcium 9.4 mg/dL (8.5-10.1); Potassium 3.9 mmol/L (3.5-5.1)
[2021-04-09 08:03] LABS: BUN/Creatinine Ratio 27.4; Bilirubin, Total 0.6 mg/dL (0.2-1.0); Total Protein 6.1 g/dL (6.4-8.2)
[2021-04-09 08:05] VITALS: BP 136/71
[2021-04-09 08:40] VITALS: BP 136/71
[2021-04-09] MEDS: levoFLOXacin 250MG 50 ML IV SCH (09:54)
[2021-04-09] MEDS: PANTOPRAZOLE 40 MG/10 ML VIAL INJ IV SCH (09:54)
[2021-04-09] MEDS: SOD CHL 0.45% 1,000 ML IV SCH ×2 (10:30→23:52)
[2021-04-09] MEDS ORDERED: PPN PER PHARMACY 0 ML IV SCH (10:30)
[2021-04-09 13:13] VITALS: BP 118/75
[2021-04-09 13:53] LABS: Phosphorus 4.4 mg/dL (2.5-4.90)
[2021-04-09 13:54] LABS: Magnesium 2.3 mg/dL (1.6-2.6)
[2021-04-09 13:55] LABS: Pre Albumin 9.9 mg/dL (20.0-40.0)
[2021-04-09 17:19] VITALS: BP 106/64
[2021-04-09] MEDS: PPN PER PHARMACY IV NR ×5 (20:42)
[2021-04-09 22:00] VITALS: BP 127/71
[2021-04-09] MEDS ORDERED: TEMAZEPAM 15 MG CAP PO ONE (23:00)
[2021-04-09] MEDS: ACCU-CHEK COMFORT CURVE STRIP VI SCH (23:45)
[2021-04-09] MEDS: InsuLIN REG 1unit/0.01ml Soln (100units/ml) SC SCH (23:46)
[2021-04-10] MEDS ORDERED: DEXTROSE (50%) 50ML SYRG IV SCH
[2021-04-10] MEDS: MORPHINE SULFATE INJECTION 2 MG/ML SYRG IV PRN ×4 (01:10→19:18)
[2021-04-10 05:00] VITALS: BP 125/77
[2021-04-10] MEDS: metroNIDAZOLE 500MG/100ML 100 ML IV SCH ×2 (05:25→15:10)
[2021-04-10] MEDS: ACCU-CHEK COMFORT CURVE STRIP VI SCH ×3 (05:25→18:04)
[2021-04-10] MEDS: InsuLIN REG 1unit/0.01ml Soln (100units/ml) SC SCH ×3 (05:26→18:07)
[2021-04-10 06:52] LABS: Basophils # (auto) 0.1 10 ^3/uL (0-0.2); Basophils % (auto) 0.6 % (0.0-2.0); Eosinophils # (auto) 0 10 ^3/uL (0-0.8); Eosinophils % (auto) 0.1 % (0.0-7.0); Hematocrit 38.3 % (41.0-53.0); Hemoglobin 12.5 g/dL (13.5-17.5); Lymphocytes # (auto) 2.2 10 ^3/uL (0.4-5.4); Lymphocytes % (auto) 14.2 % (10.0-50.0); Mean Corpuscular Hemoglobin 25.3 pg (28.0-32.0); Mean Corpuscular Hgb Conc. 32.7 g/dL (32.0-36.0); Mean Corpuscular Volume 77.5 fL (80.0-100.0); Monocytes % (auto) 6.8 % (0.0-12.0); Neutrophils # (auto) 11.9 10 ^3/uL (1.6-8.6); Neutrophils % (auto) 78.3 % (37.0-80.0); Nucleated Red Blood Cells % 0.1 %; Red Blood Cells 4.94 10^6/uL (4.5-5.90); Red Cell Distribution Width 15.7 % (11.8-14.3); White Blood Cell 15.2 10^3/uL (4.4-10.8)
[2021-04-10 07:06] LABS: Albumin 2.7 g/dL (3.4-5.0); Calcium 8.9 mg/dL (8.5-10.1); Magnesium 3.2 mg/dL (1.6-2.6); Potassium 3.7 mmol/L (3.5-5.1)
[2021-04-10 07:11] LABS: BUN/Creatinine Ratio 28.8; Bilirubin, Total 0.6 mg/dL (0.2-1.0); Phosphorus 2.6 mg/dL (2.5-4.90); Total Protein 6.2 g/dL (6.4-8.2)
[2021-04-10] MEDS: ONDANSETRON HCL 4 MG/2 ML VIAL IV PRN ×3 (07:56→19:18)
[2021-04-10] MEDS: PANTOPRAZOLE 40 MG/10 ML VIAL INJ IV SCH (07:56)
[2021-04-10] MEDS: levoFLOXacin 250MG 50 ML IV SCH (08:00)
[2021-04-10 09:08] VITALS: BP 107/50
[2021-04-10] MEDS ORDERED: TPN PER PHARMACY 0 ML IV SCH (10:45)
[2021-04-10] MEDS ORDERED: POTASSIUM CHL 20MEQ/50ML 50 ML IV ONE (11:00)
[2021-04-10] MEDS ORDERED: ENOXAPARIN SOD 30 MG/0.3 ML SYRINGE SC ONE (11:00)
[2021-04-10 13:13] VITALS: BP 113/69
[2021-04-10] MEDS: SOD CHL 0.45% 1,000 ML IV SCH (13:14)
[2021-04-10 17:00] VITALS: BP 127/73
[2021-04-10 17:04] LABS: Albumin 2.7 g/dL (3.4-5.0); Calcium 9.3 mg/dL (8.5-10.1); Potassium 3.5 mmol/L (3.5-5.1)
[2021-04-10 17:11] LABS: BUN/Creatinine Ratio 31.1; Bilirubin, Total 0.5 mg/dL (0.2-1.0); Total Protein 5.6 g/dL (6.4-8.2)
[2021-04-10] MEDS ORDERED: LIDOCAINE 1% (LOCAL ANESTH.) PF 5ml SDV ID ONE (17:45)
[2021-04-10] MEDS ORDERED: PPN PER PHARMACY IV NR ×4 (20:00)
[2021-04-10 22:00] VITALS: BP 142/75
[2021-04-11] MEDS: ONDANSETRON HCL 4 MG/2 ML VIAL IV PRN ×3 (00:43→14:38)
[2021-04-11] MEDS: MORPHINE SULFATE INJECTION 2 MG/ML SYRG IV PRN ×4 (00:43→23:00)
[2021-04-11] MEDS: metroNIDAZOLE 500MG/100ML 100 ML IV SCH ×4 (00:45→23:00)
[2021-04-11] MEDS: SODIUM CHLOR 0.9% PF (SALINE LOCK) 10ML VIAL/SYR IV SCH ×3 (00:46→23:00)
[2021-04-11] MEDS: ACCU-CHEK COMFORT CURVE STRIP VI SCH ×5 (00:46→23:00)
[2021-04-11 04:45] VITALS: BP 140/76
[2021-04-11] MEDS: SOD CHL 0.45% 1,000 ML IV SCH ×2 (06:56→16:54)
[2021-04-11] MEDS: InsuLIN REG 1unit/0.01ml Soln (100units/ml) SC SCH ×5 (06:59→23:00)
[2021-04-11 07:04] LABS: Calcium 8.7 mg/dL (8.5-10.1); Potassium 3.1 mmol/L (3.5-5.1)
[2021-04-11 07:11] LABS: Albumin 2.8 g/dL (3.4-5.0); Bilirubin, Total 0.4 mg/dL (0.2-1.0); Phosphorus 1.8 mg/dL (2.5-4.90); Total Protein 5.6 g/dL (6.4-8.2)
[2021-04-11] MEDS: PPN PER PHARMACY IV NR ×5 (08:00)
[2021-04-11] MEDS: PANTOPRAZOLE 40 MG/10 ML VIAL INJ IV SCH (08:12)
[2021-04-11] MEDS: levoFLOXacin 250MG 50 ML IV SCH (08:12)
[2021-04-11] MEDS: ENOXAPARIN SOD 30 MG/0.3 ML SYRINGE SC SCH (08:14)
[2021-04-11 09:00] VITALS: BP 129/77
[2021-04-11 13:00] VITALS: BP 106/65
[2021-04-11] MEDS ORDERED: POTASSIUM PHOSPHATE 22 MEQ in SODIUM CHL 0.9% 100 ML IV ONE (13:30)
[2021-04-11 16:54] VITALS: BP 125/72
[2021-04-11] MEDS ORDERED: TPN PER PHARMACY IV NR ×5 (20:00)
[2021-04-12] MEDS: metroNIDAZOLE 500MG/100ML 100 ML IV SCH ×4 (02:20→21:43)
[2021-04-12] MEDS: MORPHINE SULFATE INJECTION 2 MG/ML SYRG IV PRN ×4 (04:33→21:53)
[2021-04-12] MEDS: SOD CHL 0.45% 1,000 ML IV SCH (05:10)
[2021-04-12 05:14] LABS: Basophils # (auto) 0 10 ^3/uL (0-0.2); Eosinophils # (auto) 0 10 ^3/uL (0-0.8); Hemoglobin 12.8 g/dL (13.5-17.5); White Blood Cell 11.3 10^3/uL (4.4-10.8)
[2021-04-12 05:17] LABS: Basophils % (auto) 0.3 % (0.0-2.0); Eosinophils % (auto) 0.3 % (0.0-7.0); Hematocrit 38.5 % (41.0-53.0); Lymphocytes # (auto) 1.5 10 ^3/uL (0.4-5.4); Lymphocytes % (auto) 12.9 % (10.0-50.0); Mean Corpuscular Hemoglobin 25.6 pg (28.0-32.0); Mean Corpuscular Hgb Conc. 33.3 g/dL (32.0-36.0); Monocytes % (auto) 8.9 % (0.0-12.0); Neutrophils # (auto) 8.8 10 ^3/uL (1.6-8.6); Neutrophils % (auto) 77.6 % (37.0-80.0); Red Blood Cells 5.01 10^6/uL (4.5-5.90)
[2021-04-12 05:49] LABS: Albumin 2.6 g/dL (3.4-5.0); BUN/Creatinine Ratio 29.2; Calcium 8.6 mg/dL (8.5-10.1); Magnesium 2.2 mg/dL (1.6-2.6)
[2021-04-12 05:52] LABS: Bilirubin, Total 0.4 mg/dL (0.2-1.0); Phosphorus 2.2 mg/dL (2.5-4.90); Total Protein 5.3 g/dL (6.4-8.2)
[2021-04-12] MEDS: ACCU-CHEK COMFORT CURVE STRIP VI SCH ×4 (06:13→21:52)
[2021-04-12] MEDS: InsuLIN REG 1unit/0.01ml Soln (100units/ml) SC SCH ×4 (06:13→22:43)
[2021-04-12 09:00] VITALS: BP 122/53
[2021-04-12] MEDS: levoFLOXacin 250MG 50 ML IV SCH (09:01)
[2021-04-12] MEDS: PANTOPRAZOLE 40 MG/10 ML VIAL INJ IV SCH (09:01)
[2021-04-12] MEDS: SODIUM CHLOR 0.9% PF (SALINE LOCK) 10ML VIAL/SYR IV SCH ×2 (09:02→21:49)
[2021-04-12] MEDS: ENOXAPARIN SOD 30 MG/0.3 ML SYRINGE SC SCH (09:02)
[2021-04-12] MEDS: SOD CHL 0.45% WITH 20MEQ KCL 1,000 ML IV SCH (09:30)
[2021-04-12] MEDS ORDERED: POTASSIUM PHOSPHATE 22 MEQ in SODIUM CHL 0.9% 100 ML IV ONE (10:30)
[2021-04-12 12:50] VITALS: BP 106/63
[2021-04-12 16:45] LABS: INR 1.19 (0.9-1.15); Partial Thromboplastin Time 27.9 sec (23.6-33.0)
[2021-04-12 17:00] VITALS: BP 124/74
[2021-04-12] MEDS ORDERED: TPN PER PHARMACY IV NR ×7 (20:00)
[2021-04-13] VITALS (27 sets, daily range): BP systolic 87–130; BP diastolic 58–87
[2021-04-13] MEDS: MORPHINE SULFATE INJECTION 2 MG/ML SYRG IV PRN ×3 (04:31→22:30)
[2021-04-13 05:32] LABS: Albumin 2.8 g/dL (3.4-5.0); Calcium 8.8 mg/dL (8.5-10.1); Magnesium 2.1 mg/dL (1.6-2.6)
[2021-04-13 05:36] LABS: Potassium 2.7 mmol/L (3.5-5.1)
[2021-04-13 05:38] LABS: BUN/Creatinine Ratio 27.3; Bilirubin, Total 0.4 mg/dL (0.2-1.0); Phosphorus 2.1 mg/dL (2.5-4.90); Total Protein 6.1 g/dL (6.4-8.2)
[2021-04-13] MEDS: metroNIDAZOLE 500MG/100ML 100 ML IV SCH ×3 (06:17→21:22)
[2021-04-13] MEDS: SOD CHL 0.45% WITH 20MEQ KCL 1,000 ML IV SCH ×2 (06:17→12:10)
[2021-04-13] MEDS: ACCU-CHEK COMFORT CURVE STRIP VI SCH ×3 (06:18→17:56)
[2021-04-13] MEDS: InsuLIN REG 1unit/0.01ml Soln (100units/ml) SC SCH ×3 (06:20→17:55)
[2021-04-13] MEDS: ENOXAPARIN SOD 30 MG/0.3 ML SYRINGE SC SCH (08:02)
[2021-04-13] MEDS: levoFLOXacin 250MG 50 ML IV SCH (08:02)
[2021-04-13] MEDS: SODIUM CHLOR 0.9% PF (SALINE LOCK) 10ML VIAL/SYR IV SCH ×2 (08:02→21:23)
[2021-04-13] MEDS: PANTOPRAZOLE 40 MG/10 ML VIAL INJ IV SCH (08:02)
[2021-04-13] MEDS ORDERED: POTASSIUM CHL 20MEQ/50ML 50 ML IV ONE ×2 (09:15→09:18)
[2021-04-13] MEDS ORDERED: HYDROmorphone HCL 2 MG/ML VL ONE (09:46)
[2021-04-13] MEDS ORDERED: ETOMIDATE (2MG/ML) 20ML VIAL IV ONE ×2 (09:47→11:31)
[2021-04-13] MEDS ORDERED: cefTRIAXone 1GM/50ML D5W 50 ML IV ONE (10:41)
[2021-04-13] MEDS ORDERED: ePHEDrine SULFATE 50 MG/ML AMP ONE ×2 (11:30→11:46)
[2021-04-13] MEDS ORDERED: SODIUM CHLORIDE LOCK 10 ML ONE (11:30)
[2021-04-13] MEDS ORDERED: GLYCOPYRROLATE 0.2 MG/ML 1ML VIAL ONE (11:30)
[2021-04-13] MEDS ORDERED: PHENYLEPHRINE HCL 10 MG/ML VL ONE (11:30)
[2021-04-13] MEDS ORDERED: POTASSIUM PHOSPHATE 26.4 MEQ in SODIUM CHL 0.9% 100 ML IV ONE (11:30)
[2021-04-13] MEDS ORDERED: ONDANSETRON HCL 4 MG/2 ML VIAL ONE (11:30)
[2021-04-13] MEDS ORDERED: DexAMETHasone SOD PHOS 10MG/1ML VIAL INJ ONE (11:30)
[2021-04-13] MEDS ORDERED: NEOSTIGMINE 1 MG/ML INJ (10mg/10ML VIAL) ONE ×2 (11:31→12:41)
[2021-04-13] MEDS ORDERED: NOREPINEPHRINE 8 MG/250ML KIT 250 ML IV ONE (12:18)
[2021-04-13] MEDS ORDERED: NOREPINEPHRINE 8 MG/250ML KIT 250 ML IV SCH (12:30)
[2021-04-13] MEDS ORDERED: fentaNYL CITRATE 100 MCG/2 ML VL IV PRN (13:15)
[2021-04-13] MEDS ORDERED: HYDROmorphone HCL 2 MG/ML VL IV PRN ×2 (13:15)
[2021-04-13] MEDS ORDERED: ONDANSETRON HCL 4 MG/2 ML VIAL IV PRN (13:15)
[2021-04-13] MEDS ORDERED: fentaNYL CITRATE 100 MCG/2 ML VL ONE (13:30)
[2021-04-13] MEDS: NOREPINEPHRINE 8 MG/250ML KIT 250 ML IV SCH (13:30)
[2021-04-13] MEDS ORDERED: SODIUM CHLORIDE 0.9% 500 ML IV ONE (19:30)
[2021-04-13] MEDS ORDERED: TPN PER PHARMACY IV NR ×7 (20:00)
[2021-04-13] MEDS: D5W/SOD CHL 0.45%/KCL 40MEQ 1,000 ML IV SCH (20:25)
[2021-04-13 20:26] LABS: BUN/Creatinine Ratio 24.4; Calcium 8.2 mg/dL (8.5-10.1); Potassium 3.6 mmol/L (3.5-5.1)
[2021-04-14] VITALS (14 sets, daily range): BP systolic 94–118; BP diastolic 46–66
[2021-04-14] MEDS: InsuLIN REG 1unit/0.01ml Soln (100units/ml) SC SCH ×4 (00:59→18:00)
[2021-04-14] MEDS: MORPHINE SULFATE INJECTION 2 MG/ML SYRG IV PRN ×4 (03:00→21:42)
[2021-04-14] MEDS ORDERED: D5W/SOD CHL 0.45%/KCL 40MEQ 1,000 ML IV ONE (05:02)
[2021-04-14 05:09] LABS: Basophils # (auto) 0 10 ^3/uL (0-0.2); Eosinophils # (auto) 0 10 ^3/uL (0-0.8); Mean Corpuscular Volume 77.4 fL (80.0-100.0)
[2021-04-14 05:12] LABS: Basophils % (auto) 0.2 % (0.0-2.0); Hematocrit 37.1 % (41.0-53.0); Hemoglobin 12.3 g/dL (13.5-17.5); Lymphocytes % (auto) 12.2 % (10.0-50.0); Mean Corpuscular Hemoglobin 25.5 pg (28.0-32.0); Monocytes # (auto) 1.6 10 ^3/uL (0-1.3); Neutrophils # (auto) 12.6 10 ^3/uL (1.6-8.6); Neutrophils % (auto) 77.6 % (37.0-80.0); Nucleated Red Blood Cells % 0.1 %; Red Cell Distribution Width 16.2 % (11.8-14.3); White Blood Cell 16.3 10^3/uL (4.4-10.8)
[2021-04-14 05:30] LABS: Magnesium 1.7 mg/dL (1.6-2.6); Potassium 3.6 mmol/L (3.5-5.1)
[2021-04-14 05:37] LABS: BUN/Creatinine Ratio 27.5; Bilirubin, Total 0.2 mg/dL (0.2-1.0); Calcium 8.3 mg/dL (8.5-10.1); Phosphorus 1.9 mg/dL (2.5-4.90); Total Protein 4.3 g/dL (6.4-8.2)
[2021-04-14] MEDS: ACCU-CHEK COMFORT CURVE STRIP VI SCH ×4 (06:22→18:53)
[2021-04-14] MEDS: metroNIDAZOLE 500MG/100ML 100 ML IV SCH ×2 (06:27→14:10)
[2021-04-14] MEDS: D5W/SOD CHL 0.45%/KCL 40MEQ 1,000 ML IV SCH ×2 (06:27→18:57)
[2021-04-14] MEDS ORDERED: POTASSIUM PHOSPHATE 44 MEQ in D5W 5% 250 ML IV ONE (10:00)
[2021-04-14] MEDS: PANTOPRAZOLE 40 MG/10 ML VIAL INJ IV SCH (10:59)
[2021-04-14] MEDS: levoFLOXacin 250MG 50 ML IV SCH (10:59)
[2021-04-14] MEDS ORDERED: CATHFLO ACTIVASE (ALTEPLASE) 2 MG VIAL IV ONE (11:00)
[2021-04-14] MEDS: SODIUM CHLOR 0.9% PF (SALINE LOCK) 10ML VIAL/SYR IV SCH (11:00)
[2021-04-14] MEDS: NOREPINEPHRINE 8 MG/250ML KIT 250 ML IV SCH (13:30)
[2021-04-14] MEDS ORDERED: TPN PER PHARMACY IV NR ×8 (20:00)
[2021-04-14] MEDS ORDERED: D5W/SOD CHL 0.45%/KCL 40MEQ 1,000 ML IV SCH (20:00)
[2021-04-15 05:45] LABS: Hemoglobin 12.6 g/dL (13.5-17.5); Red Cell Distribution Width 16.4 % (11.8-14.3)
[2021-04-15 05:47] LABS: Mean Corpuscular Hgb Conc. 32.3 g/dL (32.0-36.0); Mean Corpuscular Volume 77.5 fL (80.0-100.0); Red Blood Cells 5.03 10^6/uL (4.5-5.90)
[2021-04-15 05:50] LABS: Albumin 2.2 g/dL (3.4-5.0); Potassium 3.8 mmol/L (3.5-5.1)
[2021-04-15 05:52] LABS: Basophils % (manual) 0 (0.0-2.0); Blast Cells 0; Eosinophils % (manual) 0 (0-7); Metamyelocytes % 0; Myelocytes % 0; Promyelocytes % 0; Reactive Lymphocytes 0
[2021-04-15 05:55] LABS: BUN/Creatinine Ratio 27.1; Bilirubin, Total 0.4 mg/dL (0.2-1.0); Calcium 8.2 mg/dL (8.5-10.1); Magnesium 1.9 mg/dL (1.6-2.6); Phosphorus 2.8 mg/dL (2.5-4.90); Total Protein 5.1 g/dL (6.4-8.2)
[2021-04-15] MEDS: ACCU-CHEK COMFORT CURVE STRIP VI SCH ×4 (06:00→18:12)
[2021-04-15] MEDS: InsuLIN REG 1unit/0.01ml Soln (100units/ml) SC SCH ×4 (06:00→18:00)
[2021-04-15] MEDS: metroNIDAZOLE 500MG/100ML 100 ML IV SCH ×4 (07:28→21:27)
[2021-04-15] MEDS: SODIUM CHLOR 0.9% PF (SALINE LOCK) 10ML VIAL/SYR IV SCH ×3 (07:28→21:27)
[2021-04-15 08:00] VITALS: BP 141/76
[2021-04-15 08:45] VITALS: BP_SYST 141; BP_SYST 146; BP_DIAS 76; BP_DIAS 82
[2021-04-15 08:50] LABS: Band Neutrophils % (manual) 4; Lymphocytes % (manual) 12 (10.0-50.0); Monocytes % (manual) 7 (0-12)
[2021-04-15] MEDS: D5W 5% 1,000 ML IV SCH (09:15)
[2021-04-15] MEDS: PANTOPRAZOLE 40 MG/10 ML VIAL INJ IV SCH (09:36)
[2021-04-15] MEDS: levoFLOXacin 250MG 50 ML IV SCH (10:00)
[2021-04-15] MEDS: MORPHINE SULFATE INJECTION 2 MG/ML SYRG IV PRN (10:15)
[2021-04-15] MEDS ORDERED: PIPERACILLIN-TAZOB 2.25GM 50 ML IV ONE (11:00)
[2021-04-15 13:07] VITALS: BP 116/69
[2021-04-15 17:20] VITALS: BP 123/76
[2021-04-15] MEDS ORDERED: ACETAMINOPHEN 650 MG RECT SUPP PR ONE (17:45)
[2021-04-15] MEDS: PIPERACILLIN-TAZOB 2.25GM 50 ML IV SCH (18:11)
[2021-04-15] MEDS ORDERED: TPN PER PHARMACY IV NR ×7 (20:00)
[2021-04-15 22:00] VITALS: BP 102/55
[2021-04-16] MEDS: PIPERACILLIN-TAZOB 2.25GM 50 ML IV SCH ×5 (00:17→23:38)
[2021-04-16] MEDS: ACCU-CHEK COMFORT CURVE STRIP VI SCH ×5 (00:17→23:38)
[2021-04-16] MEDS: InsuLIN REG 1unit/0.01ml Soln (100units/ml) SC SCH ×5 (00:24→23:37)
[2021-04-16] MEDS: D5W 5% 1,000 ML IV SCH ×2 (01:12→09:25)
[2021-04-16 05:00] VITALS: BP 108/66
[2021-04-16] MEDS: MORPHINE SULFATE INJECTION 2 MG/ML SYRG IV PRN ×3 (05:30→20:54)
[2021-04-16] MEDS: metroNIDAZOLE 500MG/100ML 100 ML IV SCH ×3 (05:40→21:41)
[2021-04-16 09:00] VITALS: BP 108/78
[2021-04-16] MEDS: SODIUM CHLOR 0.9% PF (SALINE LOCK) 10ML VIAL/SYR IV SCH ×2 (09:25→21:41)
[2021-04-16] MEDS: PANTOPRAZOLE 40 MG/10 ML VIAL INJ IV SCH (09:25)
[2021-04-16 11:02] LABS: Hematocrit 34.4 % (41.0-53.0); Hemoglobin 11.1 g/dL (13.5-17.5); Mean Corpuscular Hemoglobin 24.9 pg (28.0-32.0); Mean Corpuscular Hgb Conc. 32.3 g/dL (32.0-36.0); Red Blood Cells 4.46 10^6/uL (4.5-5.90); Red Cell Distribution Width 16.1 % (11.8-14.3); White Blood Cell 24.2 10^3/uL (4.4-10.8)
[2021-04-16 11:04] LABS: Basophils % (manual) 0 (0.0-2.0); Blast Cells 0; Eosinophils % (manual) 0 (0-7); Metamyelocytes % 0; Myelocytes % 0; Promyelocytes % 0; Reactive Lymphocytes 0
[2021-04-16 11:10] LABS: Potassium 3.1 mmol/L (3.5-5.1)
[2021-04-16 11:26] LABS: Albumin 1.8 g/dL (3.4-5.0); BUN/Creatinine Ratio 30.3; Calcium 8.4 mg/dL (8.5-10.1); Magnesium 2.6 mg/dL (1.6-2.6)
[2021-04-16 11:29] LABS: Bilirubin, Total 0.5 mg/dL (0.2-1.0); Phosphorus 3.2 mg/dL (2.5-4.90); Total Protein 5.5 g/dL (6.4-8.2)
[2021-04-16 11:43] LABS: Band Neutrophils % (manual) 1; Lymphocytes % (manual) 5 (10.0-50.0); Monocytes % (manual) 2 (0-12)
[2021-04-16] MEDS ORDERED: POTASSIUM PHOSPHATE 44 MEQ in D5W 5% 250 ML IV ONE (12:15)
[2021-04-16 13:00] VITALS: BP 132/95
[2021-04-16] MEDS ORDERED: ACETAMINOPHEN 650 MG RECT SUPP PR PRN (16:15)
[2021-04-16 17:00] VITALS: BP 124/81
[2021-04-16] MEDS ORDERED: TPN PER PHARMACY IV NR ×9 (20:00)
[2021-04-16 22:00] VITALS: BP 134/80
[2021-04-17 05:00] VITALS: BP 134/75
[2021-04-17] MEDS: D5W 5% 1,000 ML IV SCH ×2 (05:05→15:42)
[2021-04-17] MEDS: metroNIDAZOLE 500MG/100ML 100 ML IV SCH ×3 (05:07→22:18)
[2021-04-17] MEDS: ACCU-CHEK COMFORT CURVE STRIP VI SCH ×4 (06:04→23:38)
[2021-04-17] MEDS: MORPHINE SULFATE INJECTION 2 MG/ML SYRG IV PRN ×2 (06:04→20:57)
[2021-04-17] MEDS: PIPERACILLIN-TAZOB 2.25GM 50 ML IV SCH ×4 (06:04→23:39)
[2021-04-17] MEDS: InsuLIN REG 1unit/0.01ml Soln (100units/ml) SC SCH ×4 (06:09→23:39)
[2021-04-17 08:57] VITALS: BP 124/71
[2021-04-17] MEDS: PANTOPRAZOLE 40 MG/10 ML VIAL INJ IV SCH (09:45)
[2021-04-17] MEDS: SODIUM CHLOR 0.9% PF (SALINE LOCK) 10ML VIAL/SYR IV SCH ×2 (09:45→22:19)
[2021-04-17 13:00] VITALS: BP 127/74
[2021-04-17 13:00] LABS: Albumin 1.8 g/dL (3.4-5.0); Calcium 8.2 mg/dL (8.5-10.1); Magnesium 3.4 mg/dL (1.6-2.6)
[2021-04-17 13:05] LABS: BUN/Creatinine Ratio 28.8; Bilirubin, Total 0.4 mg/dL (0.2-1.0); Phosphorus 3.3 mg/dL (2.5-4.90); Pre Albumin 8.8 mg/dL (20.0-40.0); Total Protein 5.7 g/dL (6.4-8.2)
[2021-04-17 13:08] LABS: Potassium 2.8 mmol/L (3.5-5.1)
[2021-04-17] MEDS: POTASSIUM CHL 20MEQ/50ML 50 ML IV SCH ×2 (14:30→16:26)
[2021-04-17] MEDS ORDERED: POTASSIUM CHLORIDE 40 MEQ, LIDOCAINE 1% (LOCAL ANESTH.) 4 ML in SODIUM CHL 0.9% 250 ML IV ONE (14:45)
[2021-04-17 17:00] VITALS: BP 125/71
[2021-04-17] MEDS ORDERED: TPN PER PHARMACY IV NR ×7 (20:00)
[2021-04-17 22:21] VITALS: BP 108/58
[2021-04-18] MEDS: MORPHINE SULFATE INJECTION 2 MG/ML SYRG IV PRN ×2 (03:21→15:05)
[2021-04-18] MEDS: D5W 5% 1,000 ML IV SCH ×2 (04:22→17:15)
[2021-04-18 05:00] VITALS: BP 102/75
[2021-04-18 05:16] VITALS: BP 102/75
[2021-04-18] MEDS: InsuLIN REG 1unit/0.01ml Soln (100units/ml) SC SCH ×2 (05:29→12:00)
[2021-04-18] MEDS: metroNIDAZOLE 500MG/100ML 100 ML IV SCH (05:30)
[2021-04-18] MEDS: ACCU-CHEK COMFORT CURVE STRIP VI SCH ×2 (05:30→11:45)
[2021-04-18] MEDS: PIPERACILLIN-TAZOB 2.25GM 50 ML IV SCH (06:53)
[2021-04-18 09:00] VITALS: BP 118/84
[2021-04-18] MEDS: PANTOPRAZOLE 40 MG/10 ML VIAL INJ IV SCH (09:02)
[2021-04-18] MEDS: SODIUM CHLOR 0.9% PF (SALINE LOCK) 10ML VIAL/SYR IV SCH (09:02)
[2021-04-18 13:00] VITALS: BP 133/83
[2021-04-18 15:04] VITALS: BP 133/83
[2021-04-18 16:56] VITALS: BP 116/80
== END 2021-04-18 17:15 | disposition hospice, home (50) | DRG 853 ==
LOC: CENTRAL 03:20 → TELE-CENTR 04-09 19:57 → DOU IN ICU 04-13 12:48 → TELE-WESTW 04-14 14:36
PROVIDERS: ADMIT Nurse Practitioner; ATTEND Internal Medicine
PROC: 05H333Z Insertion of Infusion Device into Right Innominate Vein, Percutaneous Approach (ICD-10-PCS; 2021-04-10)
PROC: B54MZZA Ultrasonography of Right Upper Extremity Veins, Guidance (ICD-10-PCS; 2021-04-10)
PROC: 0DN80ZZ Release Small Intestine, Open Approach (ICD-10-PCS; principal; 2021-04-13 10:49)
DX: A41.9 Sepsis, unspecified organism (principal); N17.0 Acute kidney failure with tubular necrosis; J69.0 Pneumonitis due to inhalation of food and vomit; U07.1 COVID-19; E87.0 Hyperosmolality and hypernatremia; E44.0 Moderate protein-calorie malnutrition; K56.50 Intestinal adhesions [bands], unspecified as to partial versus complete obstruction; E87.1 Hypo-osmolality and hyponatremia; Z68.1 Body mass index [BMI] 19.9 or less, adult; E78.5 Hyperlipidemia, unspecified; R73.9 Hyperglycemia, unspecified; Z66 Do not resuscitate; N18.9 Chronic kidney disease, unspecified; I12.9 Hypertensive chronic kidney disease with stage 1 through stage 4 chronic kidney disease, or unspecified chronic kidney disease; Z96.642 Presence of left artificial hip joint; E86.9 Volume depletion, unspecified; E87.6 Hypokalemia; I25.10 Atherosclerotic heart disease of native coronary artery without angina pectoris; I48.0 Paroxysmal atrial fibrillation; Z51.5 Encounter for palliative care; Z80.0 Family history of malignant neoplasm of digestive organs; Z80.3 Family history of malignant neoplasm of breast; Z80.42 Family history of malignant neoplasm of prostate; Z95.5 Presence of coronary angioplasty implant and graft; Z88.2 Allergy status to sulfonamides
CPT/HCPCS: 31720; 36415; 36569; 71045; 74018; 74250; 76705; 80048; 80053; 81001; 82040; 82962; 83036; 83690; 83735; 83880; 84100; 84478; 85007; 85025; 85027; 85610; 85730; 86850; 86900; 86901; 87040; 87081; 87086; 87088; 87426; 93005; 97110; 97163; 97530; C9113; G0378; J0696; J1100; J1815; J1956; J2405; J2543; J3490; J7042; J7060